=== PATIENT | female | born 1955 | race Caucasian/White ===

== ENCOUNTER 2016-09-09 10:24 | Inpatient (IN) | payer OTHER ==
[2016-09-09] MEDS ORDERED: NS 1,000 ML IV ONE (10:46)
--- NOTE | 2016-09-09 11:14 | PROVIDER DOCUMENTATION ---
HPI-Head Injury - General Chief Complaint: Fall Stated Complaint: nausea, fall w/head injury Time Seen by Provider: 09/09/16 11:06 Source: patient, family Allergies/Adverse Reactions: Patient Allergies Allergy/AdvReac Type Severity Reaction Status Date / Time No Known Allergies Allergy Verified 09/09/16 10:55 Home Medications: Home Medication List Medication Instructions Recorded Confirmed Last Taken Type Pantoprazole [Protonix] 40 mg PO DAILY 06/29/14 09/09/16 09/08/16 History Hydralazine [Apresoline] 100 mg PO Q8H #90 tablet 09/11/15 09/09/16 09/08/16 Rx Amlodipine [Norvasc] 10 mg PO DAILY #30 tablet 12/23/15 09/09/16 09/08/16 Rx Escitalopram [Lexapro] 20 mg PO QHS #30 tablet 08/28/16 09/09/16 09/08/16 Rx Fluticasone/Salmet 250/50 INH 1 puff INH RTBID #1 inhaler 08/28/16 09/09/16 Unknown Rx [Advair 250/50 Diskus] Amlodipine [Norvasc] 5 mg PO DAILY 09/09/16 09/09/16 09/08/16 History Bisacodyl [Laxative] 5 mg PO PRN PRN 09/09/16 09/09/16 Unknown History Cyanocobalamin (Vitamin B-12) 1,000 mcg PO DAILY 09/09/16 09/09/16 09/08/16 History [Vitamin B-12] Diphenhydramine HCl 25 mg PO PRN PRN 09/09/16 09/09/16 Unknown History Furosemide 10 mg PO PRN PRN 09/09/16 09/09/16 Unknown History Furosemide 20 mg PO DAILY 09/09/16 09/09/16 09/08/16 History Magnesium 250 mg PO DAILY 09/09/16 09/09/16 09/08/16 History Potassium Chloride 20 meq PO BID 09/09/16 09/09/16 09/08/16 History - History of Present Illness-Head Injury Nature of Presenting Problem: Patient is a 61 y/o F that presents to the ER after having a fall 2 days ago. Patient denies loc, reports tripping. Patient since has been acting differently. She also has had n/v. denies any neck and back pain. Head Injury Location: reports: frontal, temporal (right) Other injuries associated with incident:: reports: none Severity: reports: mild, moderate Onset/Duration: reports: abrupt, 2 days ago Timing: reports: still present, constant Method of Injury: reports: direct blow, fell Any recent trauma/injury?: reports: none Loss of Consciousness: no loss of consciousness Modifying Factors: improves with: nothing Injury Associated Symptoms: reports: headaches, nausea, vomiting, weakness. denies: back/neck pain, chest pain, dizziness, shortness of breath, unable to bear weight, trouble walking Locality of Occurance: Home Similar Symptoms Previously?: No Recently seen or treated by another doctor?: No Review of Systems - Adult - REVIEW OF SYSTEMS - ADULT Constitutional: denies: chills, fever Eyes: denies: decreased vision, blurred vision, double vision Ears, Nose, Mouth & Throat: reports: no symptoms reported Cardiovascular: reports: no symptoms reported Respiratory: reports: no symptoms reported Gastrointestinal: reports: nausea, vomiting. denies: abdominal pain, diarrhea Genitourinary: reports: no symptoms reported Musculoskeletal: denies: bone pain, back pain, neck pain Integumentary: reports: no symptoms reported Neurological: reports: headache/migraines. denies: dizziness/vertigo, seizure, syncope Psychiatric: reports: no symptoms reported Endocrine: reports: no symptoms reported Hematologic/Lymphatic: reports: no symptoms reported Allergic/Immunologic: reports: no symptoms reported All Other Systems: Reviewed and Negative Past History - Adult - PAST MEDICAL HISTORY-ADULT Review of Records: reports: Old Records Reviewed, Nursing Assessment Review, Medications Reviewed Cardiovascular: reports: HTN, hyperlipidemia Respiratory: reports: COPD, pneumonia Gastrointestinal: reports: GERD, hepatitis (Hep C) Obstetrical/Gynecological: reports: other (cervical cancer) Genitourinary: reports: retention (fluid retention) Psychiatric: reports: anxiety, depression - PRIOR SURGERIES/PROCEDURES Surgical/Procedure History: reports: hysterectomy - IMMUNIZATION STATUS Childhood Immunizations: See Nurse Assessment Flu Vaccine: See Nurse Assessment - FAMILY HISTORY Family History: reviewed, not pertinent - SOCIAL HISTORY Smoking: cigarettes, less than 1 pack/day Living Situation: family Physical Exam- Neurological - Physical Exam-Neuro Initial Vital Signs Reviewed: Yes General Appearance: alert, no apparent distress Eye Exam: bilateral eye: normal inspection, PERRL HENMT: moist mucous membranes, normal ENT inspection Neck: full range of motion, normal inspection. negative: lymphadenopathy Respiratory: lungs clear, normal breath sounds, no respiratory distress, no accessory muscle use Cardiovascular: no murmur, bradycardia Abdominal Exam: normal bowel sounds, non tender, soft, no organomegaly, no pulsatile mass Extremity: normal capillary refill, pelvis stable, pedal edema (2 plus pitting bilaterally) property custodian Exam: normal hearing, normal speech, PERRL Motor/Sensory: no motor deficit, no sensory deficit Neurologic: property custodian II-XII nml as tested, no motor/sensory deficits Integumentary: normal turgor, warm/dry, ecchymosis (right temporal) Psych/Mental Status: normal mood/affect, normal thought content, normal thought process, oriented x 3 Progress - PLAN OF CARE/RESULTS Progress/Plan/Lab Results: plan of care-labs, ct head, cxr 1228- Er will be contacted after. Milton Kim spoke with Samuel at [facility] due to patient's heart rate went down to 21 bpm 1231- (Er physician at ) reports that the ER has 13 patients awaiting beds. cardiology at [facility] will be contacted. Vital Signs Temp Pulse Resp BP Pulse Ox 09/09/16 12:16 37 L 20 149/110 94 L 09/09/16 10:44 98.0 F 47 L 20 188/71 94 L No Known Allergies Allergy (Verified 09/09/16 10:55) Pantoprazole [Protonix] 40 mg PO DAILY 06/29/14 Hydralazine [Apresoline] 100 mg PO Q8H #90 tablet 09/11/15 Amlodipine [Norvasc] 10 mg PO DAILY #30 tablet 12/23/15 Escitalopram [Lexapro] 20 mg PO QHS #30 tablet 08/28/16 Fluticasone/Salmet 250/50 INH [Advair 250/50 Diskus] 1 puff INH RTBID #1 inhaler 08/28/16 Amlodipine [Norvasc] 5 mg PO DAILY 09/09/16 Bisacodyl [Laxative] 5 mg PO PRN PRN 09/09/16 Cyanocobalamin (Vitamin B-12) [Vitamin B-12] 1,000 mcg PO DAILY 09/09/16 Diphenhydramine HCl 25 mg PO PRN PRN 09/09/16 Furosemide 10 mg PO PRN PRN 09/09/16 Furosemide 20 mg PO DAILY 09/09/16 Magnesium 250 mg PO DAILY 09/09/16 Potassium Chloride 20 meq PO BID 09/09/16 I&O 09/08/16 09/09/16 09/10/16 06:59 06:59 06:59 Output Total 30 Balance -30 Laboratory 09/09/16 09/09/16 09/09/16 11:55 11:55 11:01 WBC RBC Hgb Hct MCV MCH MCHC RDW Std Deviation Plt Count MPV Immature Gran % (Auto) Neut % (Auto) Lymph % (Auto) Delta % (Auto) Eos % (Auto) Baso % (Auto) Immature Gran # (Auto) Neut # (Auto) Lymph # (Auto) Delta # (Auto) Eos # (Auto) Baso # (Auto) PT INR PTT (Actin FS) Sodium 143 Potassium 4.1 Chloride 104 Carbon Dioxide 27 Anion Gap 12 BUN 12 Creatinine 1.2 H Estimated GFR/1.73 m2 46 BUN/Creatinine Ratio 10 Glucose 96 Calculated Osmolality 285 Calcium 9.1 Total Bilirubin 0.32 AST 25 ALT 17 Alkaline Phosphatase 122 H Creatine Kinase Troponin T [id number]-[id number] Pept Total Protein 7.8 Albumin 3.9 Globulin 3.9 Albumin/Globulin Ratio 1.0 Urine Source CATH Urine Color STRAW Urine Turbidity CLEAR Urine pH 8.0 Ur Specific Troutman 1.007 Urine Protein NEGATIVE Ur Glucose (Stick) NEGATIVE Ur Ketones (Stick) NEGATIVE Urine Blood NEGATIVE Urine Nitrite NEGATIVE Urine Bilirubin NEGATIVE Urobilinogen Dipstick NORMAL Urine Leukocytes NEGATIVE Urine WBC (Auto) <10 Urine RBC (Auto) <10 U Epithel Cells (Auto) <10 Urine Bacteria (Auto) NEGATIVE Urine Opiates Screen NONE DETECTED Ur Oxycodone Screen NONE DETECTED Ur Methadone, Qual NONE DETECTED Ur Barbiturates Screen NONE DETECTED Ur Phencyclidine Scrn NONE DETECTED Ur Amphetamines Screen NONE DETECTED U Benzodiazepines Scrn NONE DETECTED Urine Cocaine Screen NONE DETECTED U Cannabinoids Screen NONE DETECTED 09/09/16 09/09/16 09/09/16 11:01 11:01 11:01 WBC 8.97 RBC 4.46 Hgb 13.3 Hct 41.4 MCV 92.8 MCH 29.8 MCHC 32.1 L RDW Std Deviation 15.5 H Plt Count 310 MPV 9.6 Immature Gran % (Auto) 0.2 Neut % (Auto) 80.9 H Lymph % (Auto) 13.5 L Delta % (Auto) 3.9 Eos % (Auto) 1.3 Baso % (Auto) 0.2 Immature Gran # (Auto) 0.02 Neut # (Auto) 7.25 H Lymph # (Auto) 1.21 Delta # (Auto) 0.35 Eos # (Auto) 0.12 Baso # (Auto) 0.02 PT 10.1 INR 0.95 PTT (Actin FS) 29.4 Sodium Potassium Chloride Carbon Dioxide Anion Gap BUN Creatinine Estimated GFR/1.73 m2 BUN/Creatinine Ratio Glucose Calculated Osmolality Calcium Total Bilirubin AST ALT Alkaline Phosphatase Creatine Kinase Troponin T Wvt-[id number]-Ovdofhefdft Pept 2599 H Total Protein Albumin Globulin Albumin/Globulin Ratio Urine Source Urine Color Urine Turbidity Urine pH Ur Specific Troutman Urine Protein Ur Glucose (Stick) Ur Ketones (Stick) Urine Blood Urine Nitrite Urine Bilirubin Urobilinogen Dipstick Urine Leukocytes Urine WBC (Auto) Urine RBC (Auto) U Epithel Cells (Auto) Urine Bacteria (Auto) Urine Opiates Screen Ur Oxycodone Screen Ur Methadone, Qual Ur Barbiturates Screen Ur Phencyclidine Scrn Ur Amphetamines Screen U Benzodiazepines Scrn Urine Cocaine Screen U Cannabinoids Screen 09/09/16 09/09/16 11:01 11:01 WBC RBC Hgb Hct MCV MCH MCHC RDW Std Deviation Plt Count MPV Immature Gran % (Auto) Neut % (Auto) Lymph % (Auto) Delta % (Auto) Eos % (Auto) Baso % (Auto) Immature Gran # (Auto) Neut # (Auto) Lymph # (Auto) Delta # (Auto) Eos # (Auto) Baso # (Auto) PT INR PTT (Actin FS) Sodium Potassium Chloride Carbon Dioxide Anion Gap BUN Creatinine Estimated GFR/1.73 m2 BUN/Creatinine Ratio Glucose Calculated Osmolality Calcium Total Bilirubin AST ALT Alkaline Phosphatase Creatine Kinase 93 Troponin T < 0.010 Pjh-T-Dcqtwdxcgaj Pept Total Protein Albumin Globulin Albumin/Globulin Ratio Urine Source Urine Color Urine Turbidity Urine pH Ur Specific Troutman Urine Protein Ur Glucose (Stick) Ur Ketones (Stick) Urine Blood Urine Nitrite Urine Bilirubin Urobilinogen Dipstick Urine Leukocytes Urine WBC (Auto) Urine RBC (Auto) U Epithel Cells (Auto) Urine Bacteria (Auto) Urine Opiates Screen Ur Oxycodone Screen Ur Methadone, Qual Ur Barbiturates Screen Ur Phencyclidine Scrn Ur Amphetamines Screen U Benzodiazepines Scrn Urine Cocaine Screen U Cannabinoids Screen Orders Category Date Time Status Saline Loc NOW Care 09/09/16 10:44 Active CHEST-1 VIEW [RAD] Stat Exams 09/09/16 10:46 Completed HEAD W/O CONTRAST [CT] Stat Exams 09/09/16 10:44 Draft CBC WITH ELECTRONIC DIFF [HEME] Stat Lab 09/09/16 11:01 Completed CK PROFILE [SP CHEM] Stat Lab 09/09/16 11:01 Completed COMPREHENSIVE METABOLIC PANEL [CHEM] Stat Lab 09/09/16 11:01 Completed PRO B-NATRIURETIC PEPTIDE Stat Lab 09/09/16 11:01 Completed PROTIME WITH INR [COAG] Stat Lab 09/09/16 11:01 Completed PTT [COAG] Stat Lab 09/09/16 11:01 Completed TROPONIN T Stat Lab 09/09/16 11:01 Completed URINALYSIS W/POSS RFLX CULT [URINALYSIS] Stat Lab 09/09/16 11:55 Completed URINE DRUG SCREEN Stat Lab 09/09/16 11:55 Completed 0.9% Sodium Chloride Inj [Ns] 1,000 ml Med 09/09/16 10:46 Discontinued IV 999 mls/hr EKG [EKG] Stat Ther 09/09/16 10:40 Draft - EKG 1 Time of EKG reading by physician:: 10:44 EKG Read and Signed by:: Mahsa Javier EKG Interpretation (*Must complete 3 of following elements*): Abnormal Rate: 48 Rhythm: SInus bradycardia Doyle: normal QRS: normal ST Wave: normal - XRAY 1 XRAY Study: Chest Impression: Normal XRAY Interpretation: nad - CT/MRI 1 CT Study: Head Impression: Abnormal CT Results: chronic microvascular changes - CONSULTS/PCP/HOSPITALIST Notification #1 *Consult/PCP/Hospitalist*: (Teresa) Time Discussed: 12:36 Consult Disposition: other (will consult on patient, admit to hospitalist or pcp ) #2 Consult: Time Discussed: 12:50 Consult Disposition: Will see in ED, Admit Departure - Departure Time of Disposition Order: 12:50 DIAGNOSIS: Bradycardia with less than 30 beats per minute Fall Qualifiers: Encounter type: initial encounter Qualified Code(s): W19.XXXA - Unspecified fall, initial encounter Head injury Qualifiers: Encounter type: initial encounter Qualified Code(s): S09.90XA - Unspecified injury of head, initial encounter Disposition: ADMITTED INPATIENT 09 Certified Medical Emergency: Emergent Condition: Stable Referrals: Jayy Salcido [Primary Care Provider] - Attestation - Scribe Verification/Attestation Scribe:: Daniel Swanson Acting as Scribe for:: Milton Kim Scribe documention review:: This chart was documented by a scribe and accurately reflects the service the provider performed and the decisions made by the provider. - Physician/ ERIKA Attestation Patient care was provided by Advanced Practice Provider:: Yes Advanced Practice Provider:: Milton Kim Advanced Practice Provider documentation review:: The Mid-level provider documentation, treatment plan and medical decision making was reviewed by the physician who agrees with all treatment and medical decision making by the [facility]. Physician Attestation - Physician Attestation I, the provider, attest to the following statement:: Milton Kim Physician documentation Attestation:: This documentation recorded by the scribe accurately reflects the service I personally performed and the decisions made by me.
[2016-09-09 11:15] LABS: MANUAL DIFF NEEDED? NO
[2016-09-09 11:21] LABS: BASO% 0.2 % (0.0-0.8); EOS# 0.12 X1000 (0.0-0.7); EOS% 1.3 % (0.0-10.0); HEMATOCRIT 41.4 % (37.0-47.0); HEMOGLOBIN 13.3 g/dL (12.0-16.0); IMM GRAN# 0.02 X1000 (0.0-0.04); IMM GRAN% 0.2 % (0.0-0.5); LYMPH# 1.21 X1000 (1.2-3.4); LYMPH% 13.5 % (20.5-51.1); MCH 29.8 PG (27-31); MCHC 32.1 g/dL (33-37); MCV 92.8 FL (81-99); MONO# 0.35 X1000 (0.11-0.59); MONO% 3.9 % (1.7-9.3); MPV 9.6 FL (7.4-10.4); NEUT% 80.9 % (42.2-75.2); PLT 310 X1000 (130-400); RBC 4.46 XMIL (4.2-5.4)
--- NOTE | 2016-09-09 11:41 | Diag Imaging Result Document ---
PROCEDURE NAME: CHEST-1 VIEW - 09/09/2016 AP CHEST: FINDINGS: There is somewhat suboptimal inspiration. Compared to 08/26/2016, there has been no significant change considering differences in technique and inspiration. IMPRESSION: No acute disease.
--- NOTE | 2016-09-09 11:51 | Diag Imaging Result Document ---
PROCEDURE NAME: HEAD W/O CONTRAST - 09/09/2016 CT OF THE HEAD WITHOUT CONTRAST: FINDINGS: There are calcifications present in both internal carotid arteries. There is no evidence of mass effect, bleed, or abnormal extra-axial fluid collection. The visualized paranasal sinuses are clear. The calvarium is stable in appearance. There are some patchy lucencies present in the white matter of both hemispheres consistent with chronic microvascular disease. This was also demonstrated on the previous study. In fact, it was more obvious on the previous study of 02/29/2016. Given the resolution of some of the abnormalities which were present on the previous study, it was very likely they were due to reversible encephalopathy. IMPRESSION: Minimal chronic microvascular white matter changes. No evidence of acute disease.
[2016-09-09 11:59] LABS: ALBUMIN 3.9 g/dL (3.5-5.0); CALCIUM 9.1 mg/dL (8.8-10.2); POTASSIUM 4.1 mmol/L (3.5-5.1); TOTAL BILIRUBIN 0.32 mg/dL (0.20-1.00); TOTAL PROTEIN 7.8 g/dL (6.3-8.3)
[2016-09-09 12:03] LABS: INR 0.95; PROTIME 10.1 Seconds (9.2-11.7); PTT 29.4 Seconds (22.0-36.0)
[2016-09-09 12:05] LABS: URINE CULTURE NEEDED? NO; URINE MICRO REVIEW NEEDED? NO; URINE SOURCE CATH
[2016-09-09 12:10] LABS: BILIRUBIN URINE NEGATIVE (NEGATIVE); BLOOD URINE NEGATIVE (NEGATIVE); COLOR STRAW; GLUCOSE URINE NEGATIVE (NEGATIVE); LEUKOCYTES URINE NEGATIVE (NEGATIVE); NITRITE URINE NEGATIVE (NEGATIVE); PROTEIN URINE NEGATIVE (NEGATIVE); SP GRAVITY URINE 1.007; TURBIDITY URINE CLEAR (CLEAR); UR EPITHELIAL CELLS <10 /HPF (<10); URINE BACTERIA NEGATIVE /HPF; URINE RBC <10 /HPF (<10); URINE WBC <10 /HPF (<10); UROBILINOGEN URINE NORMAL (NORMAL)
--- NOTE | 2016-09-09 12:31 | EKG Report ---
Test Performed on : 09/09/2016 10:44:53 AM Test Reason : cp/sob Blood Pressure : / mmHG Vent. Rate : 048 BPM Atrial Rate : 048 BPM P-R Int : 128 ms QRS Dur : 086 ms QT Int : 546 ms P-R-T Axes : 054 055 044 degrees QTc Int : 487 ms Sinus bradycardia. Otherwise normal ECG When compared with ECG of 25-AUG-2016 07:18, No significant change was found Unconfirmed Result
[2016-09-09 12:34] LABS: UR AMPHETAMINES QUAL NONE DETECTED (NONE DETECT); UR BARBITUATES QUAL NONE DETECTED (NONE DETECT); UR BENZODIAZEPIN QUAL NONE DETECTED (NONE DETECT); UR CANNABINOIDS QUAL NONE DETECTED (NONE DETECT); UR COCAINE QUAL NONE DETECTED (NONE DETECT); UR METHADONE QUAL NONE DETECTED (NONE DETECT); UR OPIATES QUAL NONE DETECTED (NONE DETECT); UR OXYCODONE QUAL NONE DETECTED (NONE DETECT); UR PCP QUAL NONE DETECTED (NONE DETECT)
[2016-09-09] MEDS ORDERED: BENADRYL PO PRN (13:06)
--- NOTE | 2016-09-09 13:45 | CONSULTATION ---
DATE OF CONSULTATION: 09/09/2016 REASON FOR CONSULTATION: Cardiology was consulted for bradycardia. HISTORY OF PRESENT ILLNESS: The patient was at home having significant nausea and dry heaving and she did not look well to her family and they brought her to the emergency room. She says she did not actually throw up. She denies any chest pain. She denies any syncopal episode. As far as dry heaving is concerned, that started today. It is not associated with any diarrhea or loose stools. She was noted to have bradycardia with sinus bradycardia noted on the telemetry strips with a pause of 3 seconds on 1 episode and heart rate varying anywhere from 55-60, sinus bradycardia. During her last hospitalization she was noted to have accelerated hypertension and bradycardia. At that time she was on beta-blockers which had been discontinued but at home she has not been taking any beta blockers. Her blood pressures are elevated for which she takes amlodipine and hydralazine. A couple of days back she fell at home at night. She says she did not lose consciousness. She fell off the toilet seat. She has not had any dhaval syncopal episode. She has had seizure disorder in the past. She was recently admitted on 08/25/2016 and discharged with COPD exacerbation. At that time was also noted to have renal insufficiency and hypercapnic respiratory failure. REVIEW OF SYSTEMS: A 14-point review of system was done. GI System: As above. System: There is no dysuria or hematuria. Respiratory System: There is no history of cough, expectoration, hemoptysis. There is no history of fevers or chills. Cardiovascular System: Patient does not perceive any palpitations. She denies chest pain. PAST MEDICAL HISTORY: 1. Hypertension, accelerated hypertension in the past. 2. COPD. 3. Anemia. 4. Renal insufficiency. 5. Recent admission with hypercapnic respiratory failure. 6. History of chronic pain. 7. Diverticulosis. 8. Chronic kidney disease. 9. Depression. 10. Cervical cancer. 11. Peripheral neuropathy. 12. Hepatitis C is positive. HOME MEDICATIONS: Include: 1. Protonix 40 mg a day. 2. Hydralazine 100 mg 3 times a day. 3. Amlodipine 10. 4. Lexapro 20. 5. Magnesium 250. 6. Lasix 20 p.r.n. 7. Potassium supplements. 8. Cyanocobalamin. 9. Diphenhydramine p.r.n. ALLERGIES: She is not known to be allergic to any medication. SOCIAL HISTORY: There is no history of alcohol abuse. PHYSICAL EXAMINATION: Vital Signs: Blood pressure was 188/71. Cardiovascular System: Normal jugular venous pressure. First and second heart sounds were heard. There was no S3 gallop. There was a faint systolic murmur. Respiratory System: Normal air entry. There are no crepitations or rhonchi. Abdomen: Soft, nontender. There was no guarding or rigidity. Bowel sounds were heard. Central nervous system: Alert. Answering all questions appropriately. Moving all 4 extremities. HEENT: Atraumatic, normocephalic. Pupils were equal and reacting to light. LABORATORY EXAMINATION: Revealed sodium 143, potassium 4.1, BUN 12, creatinine 1.2. CK was normal. CK-MB was 0.010. ProBNP 2,599. WBC 8.97, hemoglobin 13, hematocrit 41, platelet count of 310,000. Toxicology was negative. Urine tox screen was negative. Head CT with minimal microvascular changes. No evidence of acute disease. Chest x-ray: No acute disease. Electrocardiogram revealed sinus bradycardia, heart rate of 48 beats per minute. ASSESSMENT AND PLAN: Ms. Angelina Bolaños is a 61-year-old lady who has a history of chronic obstructive pulmonary disease, renal insufficiency in the past, hypertension, seizure disorder, hepatitis C positive, is admitted as she has had dry heaves and she did not a low well and was brought to the emergency room. She denies any chest pain. There is no dhaval syncopal episode. She was noted to be having bradycardia, as mentioned above. Currently blood pressure is elevated. RECOMMENDATIONS: 1. As far as the bradycardia is concerned, it could be vagal related because of dry heaves. However, we will monitor her to make sure she does not have any significant bradyarrhythmias. 2. Accelerated hypertension. She says that she has been taking her medications at home regularly. She did not take her medicines today. Will give her home medications of hydralazine 100 mg q.8 and Norvasc 10 mg a day. 3. We will get an echocardiogram to assess cardiac and valvular function. 4. As far as electrolytes are concern, recent thyroid profile was normal. Creatinine and BUN were abnormal during the last hospitalization last year but it is stable at the current time. 5. She has chronic pain syndrome from back pain. She says she has been with a pain clinic in [place] and takes methadone at the present time. 6. For COPD, continue with her inhalers. Thanks for the consult. We will follow hospital course.
[2016-09-09 14:26] LABS: ALLEN TEST YES; BE 2.3 mmoll (-3.0-3.0); BLOOD TYPE ARTERIAL; DRAW SITE R RADIAL; METHB 1.2 % (0.0-1.5); O2(CT) 14.6 mL/dL (15.0-23.0); PCO2(98.6) 43 mmHg (35-45); PO2(98.6) 73 mmHg (60-100); SAMPLE BLOOD; SAO2 97.1 % (95.0-100.0); THB 11.4 g/dL (11.5-17.4); pH(98.6) 7.41 (7.35-7.45)
[2016-09-09 14:27] LABS: MODALITY CANNULA
[2016-09-09] MEDS ORDERED: NORVASC ONE (14:31)
[2016-09-09] MEDS ORDERED: APRESOLINE ONE (14:31)
[2016-09-09] MEDS: NORVASC PO SCH (14:37)
[2016-09-09] MEDS ORDERED: DUONEB (A & A) INH PRN (15:22)
[2016-09-09] MEDS: KLOR-CON PO SCH ×2 (15:34→20:32)
[2016-09-09] MEDS ORDERED: PROTONIX IV SCH (16:00)
[2016-09-09] MEDS ORDERED: SODIUM CHLORIDE 0.9% INJ SCH (16:00)
[2016-09-09] MEDS: APRESOLINE PO SCH ×2 (16:57→20:35)
[2016-09-09] MEDS: PROTONIX PO SCH (16:57)
[2016-09-09] MEDS: DUONEB (A & A) INH SCH ×3 (16:59→23:19)
[2016-09-09] MEDS: ADVAIR 250/50 DISKUS INH SCH ×2 (17:00→23:19)
[2016-09-09 17:02] LABS: URINE CULTURE NEEDED? NO; URINE MICRO REVIEW NEEDED? NO; URINE SOURCE CATH
[2016-09-09 17:07] LABS: BILIRUBIN URINE NEGATIVE (NEGATIVE); BLOOD URINE NEGATIVE (NEGATIVE); COLOR STRAW; GLUCOSE URINE NEGATIVE (NEGATIVE); LEUKOCYTES URINE NEGATIVE (NEGATIVE); NITRITE URINE NEGATIVE (NEGATIVE); PROTEIN URINE NEGATIVE (NEGATIVE); SP GRAVITY URINE 1.007; TURBIDITY URINE CLEAR (CLEAR); UR EPITHELIAL CELLS <10 /HPF (<10); URINE BACTERIA NEGATIVE /HPF; URINE RBC <10 /HPF (<10); URINE WBC <10 /HPF (<10); UROBILINOGEN URINE NORMAL (NORMAL)
[2016-09-09] MEDS: MAG-OX PO SCH (17:58)
[2016-09-09] MEDS: VITAMIN B-12 PO SCH (17:58)
--- NOTE | 2016-09-09 18:05 | HISTORY AND PHYSICAL ---
CHIEF COMPLAINT: Altered mental status, abdominal pain and dry heaving. HISTORY OF PRESENT ILLNESS: Mrs. Bolaños is a 61-year-old, female, well known to our service. She was actually recently discharged on 08/28/2016. At that time she was diagnosed with COPD exacerbation. She also carries a history of hepatitis C, hypertension which has been fairly uncontrolled in the past, uterine cancer in remission, hypertensive encephalopathy resulting in seizures last year, nicotine dependence, opioid dependence on methadone maintenance, chronic left lower extremity edema, chronic iron deficiency anemia, malignant hypertension, chronic opioid dependence, on methadone maintenance and others, who presents who presents today with abdominal pain, dry heaving and altered mental status. Symptoms began yesterday. She reports pain right under her belly button that is intermittent and dull in nature associated with dry heaving. Her daughter at the bedside reports that she has become more lethargic and has not really become responsive. This morning at about 5:30 they brought her to the ER for further evaluation. She denies any chest pain. She does report shortness of breath but no fevers or chills. Patient is quite lethargic on physical examination. She is able answer some questions but the rest was obtained per her daughter at the bedside. When she got to the ER today her heart rate had been ranging anywhere from 20-120 and there is currently intermittent transcutaneous pacing when her heart rate drops below 40. Her laboratory data is largely unremarkable as is her diagnostic imaging. Cardiology has been consulted and she is going to be going to the ICU now. Her blood pressure and SpO2 are stable at this time. PAST MEDICAL HISTORY: 1. Accelerated hypertension. 2. Chronic COPD, she has home O2 but does not use it. 3. Anemia, chronic. 4. 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 5. Chronic pain on methadone maintenance. 6. Diverticulosis. 7. Depression. 8. History of cervical cancer in remission. 9. Hepatitis C. PAST SURGICAL HISTORY: Hysterectomy, tonsillectomy, goiter, cholecystectomy. SOCIAL HISTORY: Patient continues to smoke a pack a day. There is no alcohol or illicit drug use. Currently she lives alone but there is a complex psychosocial element as stated by the daughter. FAMILY HISTORY: Significant for CAD and diabetes. ALLERGIES: No known drug allergies. HOME MEDICATIONS: Norvasc 5 mg daily, Bisacodyl 5 mg as needed, vitamin B12 1000 mcg daily, diphenhydramine 25 mg as needed, Lasix 10 mg as needed, magnesium 250 mg p.o. daily, Protonix 40 mg daily, KCl 20 mEq p.o. b.i.d., Lexapro 20 mg at bedtime, Advair 250/50 twice a day, Apresoline 100 mg every 8 hours. REVIEW OF SYSTEMS: Fourteen-point review of systems obtained by me and negative with the exception of the HPI. PHYSICAL EXAMINATION: VITAL SIGNS: Blood pressure is 149/110, heart rate 37, respiratory rate 20, O2 saturations 94% on room air, temperature is 98 degrees. GENERAL: This is a chronically ill-appearing, 61-year-old, female, lying in hospital bed, in no acute distress. NEUROLOGIC: She is lethargic but opens her eyes to verbal stimulus. She follows commands without focal deficits. HEENT: Head atraumatic and normocephalic. Her pupils are equal, round, reactive to light. Oral mucosa is a bit dry. Trachea is midline. Chest diminished at the bases but clear to auscultation bilaterally. CARDIOVASCULAR: Bradycardic rate irregular. S1, S2 is noted. No murmurs. GASTROINTESTINAL: Soft, nondistended, nontender. Bowel sounds positive. EXTREMITIES: Without edema, clubbing or cyanosis. Pulses are diminished but palpable bilaterally. DIAGNOSTIC DATA: 1. Head CT shows minimal chronic microvascular white matter changes with no evidence of acute disease. 2. Chest x-ray shows no acute disease. 3. EKG shows sinus bradycardia without blocks or ST-T wave abnormalities, telemetry strips have caused multiple episodes of significant bradycardia down into the 30s and even the 20s. At times her heart rate would go up to 120 while we were at the bedside. LAB DATA: Sodium 143, potassium 4.1, chloride 104, CO2 27, anion gap 12, BUN 12, creatinine 1.2, glucose 96, calcium 9.1, AST 25, ALT 17, alkaline phosphatase 122, proBNP 259, protein 7.8, albumin 3.9, INR 0.95, WBC 8.97, hemoglobin 13.3, hematocrit 31.4, platelet count 310,000. Toxicology is negative. Urinalysis is negative. ASSESSMENT AND PLAN: 1. Symptomatic bradycardia: Patient has transcutaneous pacers and she will be going to the ICU for evaluation. Cardiology has been consulted. We will monitor her telemetry and hemodynamics closely. Obviously we will avoid any AV lana blocking agents. Cardiology has ordered an echocardiogram and we will of course rule out myocardial infarction with cardiac enzymes. A thyroid function was recently checked and was normal. We are going to check an ABG to check her true acid-base balance and make sure she is not hypercapnic. 2. Toxic metabolic encephalopathy: Likely multifactorial. Her drug screen is negative. Head CT does not show anything acute. We are also going to check an ammonia level given her history of hepatitis. There is no urinary tract infection or other obvious nidus of infection. This is likely a combination of her methadone on top of kidney disease, liver disease and possibly her bradycardia. We will however monitor her neurologic status closely. 3. Hypertension: Medications per Cardiology. 4. Chronic kidney disease stage 2-3: Chronic and stable, avoid nephrotoxic medications, monitor creatinine daily. 5. Hepatitis C: We are aware. We will monitor. We are checking an ammonia level. 6. Chronic pain on methadone maintenance: Given her mental status we are going to hold her methadone and try and check quantitative methadone level. 7. Chronic obstructive pulmonary disease: Currently not in exacerbation. Continue oxygen as needed and aggressive pulmonary toilet. 8. Nicotine dependence: Patient has been advised to quit smoking, nicotine patch has been prescribed. 9. Gastrointestinal prophylaxis with IV Protonix. Deep vein thrombosis prophylaxis with SCDs and TEDs. Further recommendations to follow. Dictated by ALFA Arias for Christina Dickson MD
--- NOTE | 2016-09-09 18:12 | ECHO REPORT ---
ORDER DATE: 09/09/2016 INTERPRETING PHYSICIAN: Dr. Anderson REQUESTING PHYSICIAN: CLINICAL INDICATIONS: A 61-year-old female with dyspnea, bradycardia. M-MODE MEASUREMENTS: Right ventricle: 2.7 cm. Left ventricle end diastole: 5.8 cm. Left ventricle end systole: 3.7 cm. Posterior wall: 0.8 cm. Interventricular septum: 0.8 cm. Left atrium: 4.5 cm. Aortic root: 3.9 cm. Inferior vena cava: 3.5. SUMMARY OF 2-DIMENSIONAL IMAGING: The left ventricle shows normal contractility. Ejection fraction 67%. The chamber is moderately dilated. The left atrium is also significantly enlarged. The inferior vena cava is dilated. The tricuspid valve shows a [id number] degree of regurgitation. The pulmonary systolic pressure is estimated at 61 mmHg. The pulmonic valve shows a mild degree of regurgitation. The pulmonary diastolic pressure is estimated at 36 mmHg. The mitral valve shows a mild degree of regurgitation. Pulse wave Doppler of mitral inflow shows a tall E wave, a "M" wave, and an A wave. This probably suggests elevation of left atrial pressure. Tissue Doppler of septal and lateral mitral annulus averages 10 cm per second. The pulse wave Doppler of pulmonary venous flow appears to be normal. Even though the tissue Doppler of mitral annulus shows good velocities, I suspect that this patient has elevation of left atrial pressure. The aortic valve looks normal. Color flow mapping unremarkable. There is no pericardial effusion, masses or thrombus. IMPRESSION: In summary, this study shows: 1. Normal left ventricular systolic function. Patient was bradycardic during the study with a rate of 40-44 beats per minute. 2. The left ventricular chamber is moderately to significantly enlarged. 3. The left atrium is significantly enlarged. 4. Enlargement of the inferior vena cava. 5. Pulmonary pressure is estimated at 61/36 mmHg, indicating moderate pulmonary hypertension. 6. Suspect elevation of left atrial pressure based on the presence of "M" wave on the mitral inflow. 7. Unremarkable aortic valve. Clinical correlation recommended.
[2016-09-09] MEDS: LEXAPRO PO SCH (20:31)
[2016-09-09] MEDS: NICODERM PATCH TD PRN (20:32)
[2016-09-09] MEDS: ZOFRAN IV PRN (22:57)
[2016-09-10] MEDS: DUONEB (A & A) INH SCH ×6 (03:34→23:12)
[2016-09-10] MEDS: ZOFRAN IV PRN ×3 (04:52→21:31)
[2016-09-10] MEDS: APRESOLINE PO SCH ×3 (04:58→20:46)
[2016-09-10 05:58] LABS: HEMATOCRIT 35.4 % (37.0-47.0); HEMOGLOBIN 11.2 g/dL (12.0-16.0); MCH 30.2 PG (27-31); MCHC 31.6 g/dL (33-37); MCV 95.4 FL (81-99); MPV 11.1 FL (7.4-10.4); RBC 3.71 XMIL (4.2-5.4)
--- NOTE | 2016-09-10 07:40 | EKG Report ---
Test Performed on : 09/10/2016 06:00:25 AM Test Reason : bradycardia Blood Pressure : / mmHG Vent. Rate : 070 BPM Atrial Rate : 070 BPM P-R Int : 126 ms QRS Dur : 092 ms QT Int : 488 ms P-R-T Axes : 063 056 049 degrees QTc Int : 527 ms Normal sinus rhythm. with sinus arrhythmia. Prolonged QT Abnormal ECG When compared with ECG of 09-SEP-2016 10:44, (Unconfirmed) No significant change was found Confirmed by Abdias WALLIS, Kenny Meza ([id number]) on 09/10/2016 5:23:28 PM
[2016-09-10] MEDS: ADVAIR 250/50 DISKUS INH SCH ×2 (08:00→19:45)
[2016-09-10] MEDS: MAG-OX PO SCH (08:21)
[2016-09-10] MEDS: KLOR-CON PO SCH ×2 (08:21→20:52)
[2016-09-10] MEDS: NORVASC PO SCH (08:21)
[2016-09-10] MEDS: PROTONIX PO SCH (08:22)
[2016-09-10] MEDS: VITAMIN B-12 PO SCH (08:22)
[2016-09-10] MEDS ORDERED: DOBUTAMINE 250 MG/D5W 250 ML ONE (08:57)
[2016-09-10] MEDS ORDERED: NS 500 ML ONE (08:57)
[2016-09-10 09:08] LABS: ALBUMIN 3.1 g/dL (3.5-5.0); CALCIUM 8.8 mg/dL (8.8-10.2); POTASSIUM 4.9 mmol/L (3.5-5.1)
[2016-09-10] MEDS ORDERED: NS 1,000 ML IV SCH (09:15)
--- NOTE | 2016-09-10 11:40 | PROGRESS NOTE ---
DATE: 09/10/2016 SUBJECTIVE: The patient is resting comfortably in bed. No acute events noted overnight. OBJECTIVE: Vital Signs: Temperature 98 degrees, blood pressure 106/51, heart rate 61, respirations 14. O2 saturation is 94% on 2L nasal cannula. General: This is an elderly female lying in bed in no acute distress. Head: Normocephalic, atraumatic. Heart: S1 and S2 normal. Regular rate and rhythm. Lungs: Clear to auscultation bilaterally. No wheezes. No rales. No rhonchi. Abdomen: Positive bowel sounds. Soft, nontender, nondistended. Extremities: No edema. No cyanosis. No calf tenderness. Neurologic: The patient is alert and oriented x3. LABORATORY STUDIES: White blood cell count 8.1, hemoglobin 11, hematocrit 35, platelets 159,000. Sodium 143, potassium 4.9, chloride 105, CO2 of 26, BUN 16, creatinine 1.3, glucose 84, phosphorus 4.6. ASSESSMENT AND PLAN: 1. Symptomatic bradycardia. This appears to have improved. Further management as per the tubing supervisor. 2. Metabolic encephalopathy. The patient is still a little sleepy this morning but is able to answer questions appropriately. 3. Chronic kidney disease, stable. 4. Hypertension, controlled. 5. Chronic obstructive pulmonary disease, stable. Continue with bronchodilator therapy. 6. Situational depression. Continue on Lexapro. 7. Deep vein thrombosis prophylaxis. Will start the patient on Lovenox.
--- NOTE | 2016-09-10 11:56 | Diag Imaging Result Document ---
PROCEDURE NAME: MYOCARDIAL PERF SCAN, STR/REST - 09/10/2016 INDICATION: Bradycardia, hypertension. PROCEDURES PERFORMED: 1. Dobutamine stress. 2. One-day stress/rest myocardial perfusion imaging. PROCEDURE IN DETAIL: Ms. Bolaños was brought to the nuclear laboratory and had a resting study with injection of 12.7 mCi of technetium-99m sestamibi with usual imaging protocol utilized. She subsequently was brought back and had a dobutamine stress. Peak stress was injected with 31.8 mCi of technetium-99m sestamibi with the usual imaging protocol utilized. FINDINGS: Dobutamine stress results: 1. Baseline EKG shows sinus rhythm at 79 beats per minute. 2. No clear evidence of ischemic-related EKG changes occurred during the course of the study. No significant arrhythmias were identified. There did appear to be occasional PACs during the infusion protocol, but again no significant arrhythmias or significant ischemic changes were identified. Perfusion imaging results: 1. No evidence of abnormal extracardiac uptake. 2. The TID ratio is 1.0. 3. There is a tremendous amount of motion artifact which was attempted to be resolved through motion-correction software. However, this still continues to have significant motion. Nevertheless, there does not appear to be any evidence of ischemic-related perfusion imaging changes. There does appear to be normal homogeneous uptake of radiotracer throughout the myocardial segments. Again, no evidence of ischemic changes. 4. Normal ejection fraction of 84%. 5. End-diastolic volume 140, end- systolic volume of 22. Normal wall motion identified.
[2016-09-10] MEDS: LOVENOX SUBQ SCH (14:31)
[2016-09-10] MEDS: NICODERM PATCH TD PRN (20:52)
[2016-09-10] MEDS: LEXAPRO PO SCH (20:52)
[2016-09-11] MEDS: DUONEB (A & A) INH SCH ×6 (02:58→22:40)
[2016-09-11] MEDS: ZOFRAN IV PRN ×3 (04:48→21:58)
[2016-09-11 04:56] LABS: MCH 29.5 PG (27-31); MCHC 30.3 g/dL (33-37); MCV 97.3 FL (81-99); MPV 9.5 FL (7.4-10.4); RBC 3.39 XMIL (4.2-5.4)
[2016-09-11] MEDS: APRESOLINE PO SCH ×3 (05:11→21:51)
[2016-09-11 05:23] LABS: CALCIUM 8.4 mg/dL (8.8-10.2); POTASSIUM 4.8 mmol/L (3.5-5.1)
[2016-09-11] MEDS: ADVAIR 250/50 DISKUS INH SCH ×2 (07:29→19:38)
[2016-09-11] MEDS: MAG-OX PO SCH (08:10)
[2016-09-11] MEDS: PROTONIX PO SCH (08:10)
[2016-09-11] MEDS: VITAMIN B-12 PO SCH (08:10)
[2016-09-11] MEDS: KLOR-CON PO SCH ×2 (08:10→21:50)
[2016-09-11] MEDS: DULCOLAX PO PRN (08:10)
[2016-09-11] MEDS: NORVASC PO SCH (08:10)
[2016-09-11] MEDS: MIRALAX PO SCH ×2 (10:50→21:50)
[2016-09-11] MEDS: METHADONE PO SCH (10:50)
[2016-09-11] MEDS: LOVENOX SUBQ SCH (10:53)
--- NOTE | 2016-09-11 12:55 | Diag Imaging Result Document ---
PROCEDURE NAME: ABDOMEN FLAT/UPRIGHT - 09/11/2016 FLAT AND UPRIGHT RADIOGRAPH OF THE ABDOMEN: COMPARISON: 11/28/2015. FINDINGS: There are nonspecific bowel gas and stool patterns. The colon is mildly distended. There is no specific sign of obstruction. There is no evidence of large-volume free abdominal gas. There is no definite organomegaly. IMPRESSION: Nonspecific mild colonic gaseous distention.
--- NOTE | 2016-09-11 15:22 | PROGRESS NOTE ---
DATE: 09/11/2016 SUBJECTIVE: The patient is resting comfortably. She does complain of generalized pain. The patient is requesting for her methadone to be restarted. OBJECTIVE: Vital Signs: Temperature 99 degrees, blood pressure 140/80, heart rate 94, respirations 18, O2 saturations 96% on 2 L nasal cannula. General: This is an elderly female, lying in bed, in no acute distress. Head: Normocephalic, atraumatic. Heart: S1, S2. Normal. Regular rate and rhythm. Lungs: Clear to auscultation bilaterally. No wheezes, no rales. No rhonchi. Abdomen: Positive bowel sounds. Soft, nontender, nondistended. Extremities: No edema. No cyanosis. No calf tenderness. LABS: White blood cell count 8.6, hemoglobin 10, hematocrit 33, platelets 245,000. Sodium 142, potassium 4.8, chloride 106, CO2 23, BUN 16, creatinine 1.3, glucose 82. ASSESSMENT AND PLAN: 1. Symptomatic bradycardia. Resolved. 2. Metabolic encephalopathy secondary to bradycardia. Resolved. 3. Chronic kidney disease. Stable. 4. Hypertension. Continue on the current antihypertensives. 5. Chronic obstructive pulmonary disease. Stable. Continue with bronchodilator therapy. 6. Chronic pain syndrome. Continue on methadone. 7. Situational depression. Continue on Lexapro. 8. DVT prophylaxis. Continue on Lovenox. 9. We will transfer the patient to the medical floor and consult physical therapy.
[2016-09-11] MEDS: TEARISOL OPH SOLUTION BOTH EYES PRN (17:38)
[2016-09-11] MEDS: LEXAPRO PO SCH (21:51)
[2016-09-12] MEDS: NICODERM PATCH TD PRN (01:09)
[2016-09-12] MEDS: DUONEB (A & A) INH SCH ×5 (02:59→23:40)
[2016-09-12] MEDS: APRESOLINE PO SCH ×3 (05:27→21:16)
[2016-09-12 06:35] LABS: HEMATOCRIT 35.2 % (37.0-47.0); HEMOGLOBIN 10.8 g/dL (12.0-16.0); MCH 29.8 PG (27-31); MCHC 30.7 g/dL (33-37); MCV 97.2 FL (81-99); MPV 9.9 FL (7.4-10.4); RBC 3.62 XMIL (4.2-5.4)
[2016-09-12 06:44] LABS: CALCIUM 9.2 mg/dL (8.8-10.2); POTASSIUM 5.5 mmol/L (3.5-5.1)
[2016-09-12] MEDS: ADVAIR 250/50 DISKUS INH SCH (07:16)
[2016-09-12] MEDS: ZOFRAN IV PRN (07:38)
[2016-09-12] MEDS: MIRALAX PO SCH ×2 (09:21→21:16)
[2016-09-12] MEDS: KLOR-CON PO SCH (09:22)
[2016-09-12] MEDS: MAG-OX PO SCH (09:23)
[2016-09-12] MEDS: METHADONE PO SCH (09:23)
[2016-09-12] MEDS: VITAMIN B-12 PO SCH (09:24)
[2016-09-12] MEDS: NORVASC PO SCH (09:24)
[2016-09-12] MEDS: PROTONIX PO SCH (09:24)
[2016-09-12] MEDS: LOVENOX SUBQ SCH (11:25)
[2016-09-12] MEDS: CILOXAN OPHTH SOLN OPH SCH ×3 (12:56→22:42)
[2016-09-12] MEDS: LACTULOSE PO SCH ×2 (12:56→21:17)
--- NOTE | 2016-09-12 15:06 | PROGRESS NOTE ---
DATE: 09/12/2016 SUBJECTIVE: The patient complains of constipation. She states that she is not hungry and feels nauseous. OBJECTIVE: Vital Signs: Temperature 98 degrees, blood pressure 131/63, heart rate 70, respirations 14, O2 saturation is 95% on 4L nasal cannula. General: This is an elderly female lying in bed in no acute distress. HEENT: Head normocephalic, atraumatic. Heart: S1 and S2 normal. Regular rate and rhythm. Lungs: Clear to auscultation bilaterally. No wheezes. No rales. No rhonchi. Abdomen: Positive bowel sounds. Soft, nontender, nondistended. Extremities: No edema. No cyanosis. No calf tenderness. Neurologic: The patient is alert oriented x3. LABORATORIES: White blood cell count 5.8, hemoglobin 10, hematocrit 35, platelets 216,000. Sodium 141, potassium 5.5, chloride 103, CO2 of 29, BUN 13, creatinine 1.4, glucose 84. ASSESSMENT AND PLAN: 1. Symptomatic bradycardia. Resolved. 2. Hypertension. Controlled. 3. Constipation. We will add Dulcolax. Will also add lactulose. The patient's abdominal x-ray was nonspecific. 4. Chronic obstructive pulmonary disease. Stable. 5. Metabolic encephalopathy. Resolved. 6. Chronic kidney disease. Stable. 7. Situational depression. Continue on Lexapro. 8. Deep vein thrombosis prophylaxis. Continue on Lovenox. 9. The patient is stable for transfer to the floor. 10. Disposition. The patient states that she wants to go to rehabilitation on discharge. [employer] is currently working on placement. Continue with physical therapy.
[2016-09-12] MEDS: DULCOLAX PO PRN (21:16)
[2016-09-12] MEDS: LEXAPRO PO SCH (21:16)
[2016-09-12] MEDS: DULCOLAX PR SCH (21:20)
[2016-09-13] MEDS: DUONEB (A & A) INH SCH ×6 (03:44→23:29)
[2016-09-13] MEDS: CILOXAN OPHTH SOLN OPH SCH ×5 (04:17→17:11)
[2016-09-13] MEDS: APRESOLINE PO SCH ×3 (04:35→21:04)
[2016-09-13 06:33] LABS: MANUAL DIFF NEEDED? NO
[2016-09-13 06:42] LABS: BASO% 0.5 % (0.0-0.8); EOS# 0.26 X1000 (0.0-0.7); EOS% 4.4 % (0.0-10.0); HEMATOCRIT 34.9 % (37.0-47.0); HEMOGLOBIN 10.7 g/dL (12.0-16.0); LYMPH# 1.04 X1000 (1.2-3.4); LYMPH% 17.6 % (20.5-51.1); MCH 29.3 PG (27-31); MCHC 30.7 g/dL (33-37); MCV 95.6 FL (81-99); MONO% 10.1 % (1.7-9.3); MPV 9.8 FL (7.4-10.4); NEUT% 67.4 % (42.2-75.2); PLT 215 X1000 (130-400); RBC 3.65 XMIL (4.2-5.4)
[2016-09-13 06:57] LABS: CALCIUM 8.5 mg/dL (8.8-10.2); POTASSIUM 5.1 mmol/L (3.5-5.1)
[2016-09-13] MEDS ORDERED: KAYEXALATE PO ONE (09:57)
[2016-09-13] MEDS ORDERED: DULCOLAX PR ONE (09:57)
[2016-09-13] MEDS: LACTULOSE PO SCH ×2 (10:03→21:05)
[2016-09-13] MEDS: MAG-OX PO SCH (10:03)
[2016-09-13] MEDS: MIRALAX PO SCH ×2 (10:03→21:06)
[2016-09-13] MEDS: METHADONE PO SCH (10:04)
[2016-09-13] MEDS: PROTONIX PO SCH (10:04)
[2016-09-13] MEDS: NORVASC PO SCH (10:04)
[2016-09-13] MEDS: VITAMIN B-12 PO SCH (10:04)
[2016-09-13] MEDS: ADVAIR 250/50 DISKUS INH SCH ×3 (11:17→23:35)
--- NOTE | 2016-09-13 11:47 | Diag Imaging Result Document ---
PROCEDURE NAME: LUMBAR SPINE W/O CONTRAST - 09/13/2016 CT LUMBAR SPINE WITHOUT: FINDINGS: There is good alignment to the lumbar spine. No compressed vertebra. No other fracture. Small bone spurs are found throughout the lumbar spine. L1-2: Minimal disk bulge. No spinal stenosis. Neither neural foramen is narrowed. L2-3: There is a small disk bulge. Mild spinal stenosis. Neither neural foramen is narrowed. L3-4: There is small disk bulge with bilateral facet hypertrophy. There is mild to moderate spinal stenosis. Neither neural foramen is narrowed. L4-5: There is a vacuum disk. There is a small disk bulge and there is facet hypertrophy. There is mild to moderate spinal stenosis with mild narrowing of the right neural foramen. L5-S1:There is also vacuum disk at L5-S1. Mild to moderate disk bulge. However there is only mild spinal stenosis. There is mild to moderate narrowing of each neural foramen. The gallbladder has been removed. Prominent atherosclerosis. No renal stones. IMPRESSION: 1. The bones are osteopenic and there are mild to moderate degenerative changes. 2. There are multiple small bulging disks resulting in spinal stenosis and neural foraminal narrowing as described.
[2016-09-13] MEDS: NICODERM PATCH TD PRN (12:14)
[2016-09-13] MEDS: LOVENOX SUBQ SCH (12:15)
[2016-09-13] MEDS: TEARISOL OPH SOLUTION BOTH EYES PRN (12:19)
--- NOTE | 2016-09-13 12:45 | PROGRESS NOTE ---
DATE: 09/13/2016 SUBJECTIVE: The patient complains of lower back pain and states that she still has not had a very good bowel movement. OBJECTIVE: Vital Signs: Temperature 98.7 degrees, blood pressure 118/53, heart rate 60, respirations 20, O2 saturation is 94% on 2L nasal cannula. General: This is a elderly female, sitting in bed in no acute distress. Head: Normocephalic, atraumatic. Heart: S1, S2. Normal. Regular rate and rhythm. Lungs: Clear to auscultation bilaterally. No wheezes. No rales. No rhonchi. Abdomen: Positive bowel sounds. Soft, nontender, nondistended. Extremities: No edema. No cyanosis. Neurologic: The patient is alert and oriented x3. LABORATORIES: White blood cell count 5.9, hemoglobin 10, hematocrit 34, platelets 215,000. Sodium 139, potassium 5.1, chloride 99, CO2 of 32, BUN 14, creatinine 1.4, glucose 85. ASSESSMENT AND PLAN: 1. Asymptomatic bradycardia. Resolved. 2. Constipation. Continue on scheduled laxatives. The patient did have 1 small bowel movement yesterday. 3. Chronic obstructive pulmonary disease. Stable. 4. Metabolic encephalopathy. Resolved. 5. Situational depression. Continue on Lexapro. 6. Chronic kidney disease. Stable. DISPOSITION: The patient is stable for transfer to rehabilitation. We are currently waiting on a rehabilitation bed.
[2016-09-13] MEDS: LEXAPRO PO SCH (21:04)
[2016-09-13] MEDS: DULCOLAX PR SCH (21:06)
[2016-09-13] MEDS: ZOFRAN IV PRN (21:13)
[2016-09-14] MEDS: CILOXAN OPHTH SOLN OPH SCH ×5 (00:03→11:48)
[2016-09-14] MEDS: DUONEB (A & A) INH SCH ×6 (03:43→23:25)
[2016-09-14] MEDS: ZOFRAN IV PRN ×3 (03:45→21:11)
[2016-09-14] MEDS: APRESOLINE PO SCH ×3 (05:17→21:11)
[2016-09-14 06:25] LABS: MANUAL DIFF NEEDED? NO
[2016-09-14 06:58] LABS: CALCIUM 9.5 mg/dL (8.8-10.2); POTASSIUM 4.5 mmol/L (3.5-5.1)
[2016-09-14 07:42] LABS: BASO% 0.8 % (0.0-0.8); EOS# 0.28 X1000 (0.0-0.7); EOS% 5.6 % (0.0-10.0); HEMATOCRIT 36.4 % (37.0-47.0); HEMOGLOBIN 11.2 g/dL (12.0-16.0); LYMPH# 1.15 X1000 (1.2-3.4); MCH 29.3 PG (27-31); MCHC 30.8 g/dL (33-37); MCV 95.3 FL (81-99); MONO# 0.58 X1000 (0.11-0.59); MONO% 11.6 % (1.7-9.3); MPV 10.3 FL (7.4-10.4); PLT 224 X1000 (130-400); RBC 3.82 XMIL (4.2-5.4)
[2016-09-14] MEDS: ADVAIR 250/50 DISKUS INH SCH ×2 (08:47→19:47)
[2016-09-14] MEDS: METHADONE PO SCH (10:00)
[2016-09-14] MEDS: PROTONIX PO SCH (10:00)
[2016-09-14] MEDS: MIRALAX PO SCH ×2 (10:00→21:14)
[2016-09-14] MEDS: NORVASC PO SCH (10:00)
[2016-09-14] MEDS: VITAMIN B-12 PO SCH (10:00)
[2016-09-14] MEDS: MAG-OX PO SCH (10:00)
[2016-09-14] MEDS: LOVENOX SUBQ SCH (11:47)
--- NOTE | 2016-09-14 16:01 | PROGRESS NOTE ---
DATE: 09/14/2016 SUBJECTIVE: The patient states that she had a bowel movement last night. She has no other complaints at this time. OBJECTIVE: Vital Signs: Temperature 98 degrees, blood pressure 133/57, heart rate 65, respirations 20, O2 saturations 95% on 2 L nasal cannula. General: This is an elderly female, sitting at the edge of the bed, in no acute distress. Head: Normocephalic atraumatic. Heart: S1, S2. Normal. Regular rate and rhythm. Lungs: Clear to auscultation bilaterally. No wheezes, no rales. No rhonchi. Abdomen: Positive bowel sounds. Soft, nontender, nondistended. Extremities: No edema. No cyanosis. No calf tenderness. Neurologic: The patient is alert and oriented x3. LAB: Reviewed. ASSESSMENT AND PLAN: 1. Symptomatic bradycardia. Resolved. 2. Constipation. Resolved. Continue with scheduled laxative therapy. 3. Chronic obstructive pulmonary disease. Stable. 4. Metabolic encephalopathy. Resolved. 5. Situational depression. Continue on Lexapro. 6. Chronic kidney disease. Stable. 7. Disposition. The patient is stable for discharge to rehab.
[2016-09-14] MEDS: NICODERM PATCH TD PRN (17:34)
[2016-09-14] MEDS: LEXAPRO PO SCH (21:12)
[2016-09-14] MEDS: DULCOLAX PR SCH (21:14)
[2016-09-15] MEDS: ZOFRAN IV PRN ×2 (01:17→22:01)
[2016-09-15] MEDS: DUONEB (A & A) INH SCH ×7 (03:39→23:22)
[2016-09-15] MEDS: APRESOLINE PO SCH ×4 (04:20→22:01)
[2016-09-15] MEDS: ADVAIR 250/50 DISKUS INH SCH ×2 (07:51→19:36)
[2016-09-15 09:58] LABS: ALLEN TEST YES; BE 6.6 mmoll (-3.0-3.0); BLOOD TYPE ARTERIAL; DRAW SITE R RADIAL; METHB 1.4 % (0.0-1.5); O2(CT) 13.9 mL/dL (15.0-23.0); PO2(98.6) 68 mmHg (60-100); SAMPLE BLOOD; SAO2 94.8 % (95.0-100.0); THB 10.8 g/dL (11.5-17.4); pH(98.6) 7.34 (7.35-7.45)
[2016-09-15 09:59] LABS: MODALITY VENTIMASK
[2016-09-15 10:04] LABS: PCO2(98.6) 63 mmHg (35-45)
[2016-09-15] MEDS: MIRALAX PO SCH ×2 (10:27→21:19)
[2016-09-15] MEDS: NORVASC PO SCH (10:31)
--- NOTE | 2016-09-15 10:57 | Diag Imaging Result Document ---
PROCEDURE NAME: CHEST-PORTABLE - 09/15/2016 PORTABLE CHEST: COMPARISON: Compared to 09/09/2016. FINDINGS: The lungs are well expanded. The heart is not enlarged. The vessels are not distended. No pneumonia. No pleural effusions identified. IMPRESSION: Negative chest.
[2016-09-15] MEDS: LOVENOX SUBQ SCH (11:00)
[2016-09-15] MEDS: PROTONIX PO SCH (11:01)
[2016-09-15] MEDS: MAG-OX PO SCH (11:01)
[2016-09-15] MEDS: VITAMIN B-12 PO SCH (11:01)
[2016-09-15] MEDS ORDERED: SOLU-MEDROL IV ONE (12:07)
[2016-09-15] MEDS ORDERED: LOVENOX SUBQ SCH (12:15)
[2016-09-15] MEDS ORDERED: LOVENOX SUBQ ONE (12:31)
[2016-09-15] MEDS: TYLENOL PO PRN (14:38)
[2016-09-15] MEDS: METHADONE PO SCH (14:39)
--- NOTE | 2016-09-15 14:46 | PROGRESS NOTE ---
DATE: 09/15/2016 SUBJECTIVE: The patient has was noted to be short of breath and hypoxic this morning and she was placed on a Ventimask. The patient denies having any chest pain or cough at this time. OBJECTIVE: Vital Signs: Temperature 98 degrees, blood pressure 124/56, heart rate 61, respirations 20, O2 saturations 95% on a Ventimask. General: This is a chronically ill- appearing, elderly female, lying in bed, in no acute distress. HEENT: Head normocephalic, atraumatic. Heart: S1, S2. Normal. Regular rate and rhythm. Lungs: Clear to auscultation bilaterally. No wheezes, no rales. No rhonchi. Abdomen: Positive bowel sounds. Soft, nontender, nondistended. Extremities: No edema. No cyanosis. No calf tenderness. Neurologic: The patient is alert oriented x3. No focal neurologic deficits noted. LABORATORY: D-dimer is 0.85, ABG pH of 7.34, pCO2 63, PO2 68, bicarb of 30. O2 saturation 94% on 50% Ventimask. IMAGING: Chest x-ray shows no acute pathology. ASSESSMENT AND PLAN: 1. Acute hypoxemic& hypercapnic respiratory failure. The patient is currently on a Ventimask. Her D-dimer was slightly elevated. We will order a ventilation/perfusion scan done to rule out the possibility of the pulmonary embolus. The patient has been on deep venous thrombosis prophylaxis throughout the hospital stay. Will increase the patient's lovenox to treatment dose. Continue on bronchodilator therapy. 2. Asymptomatic bradycardia. Resolved. 3. Chronic obstructive pulmonary disease. The patient is not wheezing; however , she did desaturate this morning. We will give a dose of steroids. Continue with bronchodilator therapy and supplemental oxygen. 4. Situational depression. Continue on Lexapro. 5. Chronic kidney disease. Stable. 6. Disposition. manager managed backup services is working on placement for the patient. If her pulmonary condition improves, she should be stable for discharge to rehab. MTDD
--- NOTE | 2016-09-15 18:05 | Diag Imaging Result Document ---
PROCEDURE NAME: LUNG SCAN / VQ - 09/15/2016 STUDY: Ventilation perfusion nuclear medicine exam. COMPARISON: Compared to recent plain film taken earlier in the day. 34.3 millicuries DTPA given for the ventilation images. 6.1 millicuries MAA given IV for the perfusion images. There are no wedged shaped perfusion defects. No ventilation perfusion mismatches. IMPRESSION: No evidence of a pulmonary embolus.
[2016-09-15] MEDS: LEXAPRO PO SCH (21:18)
[2016-09-15] MEDS: DULCOLAX PR SCH (23:59)
[2016-09-16] MEDS ORDERED: LOVENOX SUBQ SCH
[2016-09-16] MEDS: DUONEB (A & A) INH SCH ×6 (03:37→23:23)
[2016-09-16] MEDS: APRESOLINE PO SCH ×3 (04:39→22:32)
[2016-09-16 05:22] LABS: ALLEN TEST YES; BE 4.5 mmoll (-3.0-3.0); BLOOD TYPE ARTERIAL; DRAW SITE R RADIAL; METHB 1.5 % (0.0-1.5); O2(CT) 13.4 mL/dL (15.0-23.0); PO2(98.6) 53 mmHg (60-100); SAMPLE BLOOD; SAO2 88.9 % (95.0-100.0); THB 11.2 g/dL (11.5-17.4); pH(98.6) 7.36 (7.35-7.45)
[2016-09-16 05:23] LABS: PCO2(98.6) 55 mmHg (35-45)
[2016-09-16 05:24] LABS: MODALITY ROOM AIR
[2016-09-16 07:23] LABS: HEMATOCRIT 34.3 % (37.0-47.0); HEMOGLOBIN 10.6 g/dL (12.0-16.0); MCH 29.6 PG (27-31); MCHC 30.9 g/dL (33-37); MCV 95.8 FL (81-99); MPV 10.4 FL (7.4-10.4); RBC 3.58 XMIL (4.2-5.4)
[2016-09-16] MEDS: ADVAIR 250/50 DISKUS INH SCH ×2 (07:40→19:48)
[2016-09-16 07:53] LABS: CALCIUM 9.2 mg/dL (8.8-10.2); POTASSIUM 4.9 mmol/L (3.5-5.1)
[2016-09-16] MEDS: PROTONIX PO SCH (08:24)
[2016-09-16] MEDS: MAG-OX PO SCH (08:24)
[2016-09-16] MEDS: NORVASC PO SCH (08:25)
[2016-09-16] MEDS: MIRALAX PO SCH ×2 (08:25→22:29)
[2016-09-16] MEDS: METHADONE PO SCH (08:25)
[2016-09-16] MEDS: LOVENOX SUBQ SCH (08:25)
[2016-09-16] MEDS: VITAMIN B-12 PO SCH (08:25)
--- NOTE | 2016-09-16 15:47 | PROGRESS NOTE ---
DATE: 09/16/2016 SUBJECTIVE: Ms. Angelina Bolaños is a 61-year-old female. She is in no acute distress. She is sitting on the side of bed comfortably, eating lunch. She states that she has been having issues where food is getting stuck but she does not have issues with coughing when she is eating. She does state that when she drinks carbonated drinks that they tend to bubble up easily. She does not feel like she refluxes to her lungs. She also complains of a right temporal wound that has been staying for the last 3 months. It gets better and then comes back, that she states drains clear to slightly bloody drainage. Currently it is scabbed over. Also complains of styes in her right eye. She said just some shortness of breath but nothing too abnormal from her usual when she is ambulating. OBJECTIVE: Vital signs: Temperature 98.4 degrees, heart rate 86, respiratory rate 18, blood pressure 131/64. She is 95% on 2 L nasal cannula. General: Ms. Bolaños is a 61-year-old female, no acute distress. Able to answer questions appropriately Cardiovascular: S1, S2. Regular rate and rhythm. No rubs, gallops, murmurs. Pulmonary: Clear to auscultation. Bilateral breath sounds. Prolonged expiration phase. Decreased in the bases but no obvious wheezing at this time. When I walked in the room she had her oxygen off. I instructed her to put it back on and she is currently on 2 L nasal cannula. GI: Soft, nontender, nondistended. Positive bowel sounds x4. Neurologic: A O x4. LABORATORY DATA: White blood cells 7,000, hemoglobin 10, hematocrit 34, platelet count 233,000. ABGs, pH 7.36, pCO2 55, PO2 53, bicarb 28, base excess 4.5, saturation 85% and this is on 21% room air. Lactate 1.4, sodium 140, potassium 4.9, BUN 30, creatinine is 1.4, glucose 108. IMAGING: He had a V/Q scan on 09/15/2016 that was ordered secondary to elevated D-dimer which showed no evidence of pulmonary emboli. ASSESSMENT AND PLAN: 1. Acute hypoxemic hypercapnic respiratory failure secondary to chronic obstructive pulmonary disease exacerbation. Wearing BiPAP at night and nasal cannula during the day. The only concern for this morning was she was on room air and her PO2 was 53. Will order an ABG for in the morning while she is on 2 L nasal cannula. We will likely need to keep chronic use of oxygen. Continue with bronchodilator therapy and aggressive pulmonary toilet. 2. Asymptomatic bradycardia. This has resolved. It looks like it maybe back on the she had a heart rate that dropped to 58-59 at one point in time, but primarily it has been anywhere from 60s to 80s. 3. Depression. Continue Lexapro. 4. Chronic kidney disease. BUN and creatinine have elevated slightly. Will continue to monitor. 5. Disposition. Awaiting for rehab. Likely can go tomorrow if she gets a room. 6. Deep venous thrombosis prophylaxis. Lovenox. 7. Gastrointestinal prophylaxis. Protonix. 8. Complains of food getting stuck while she is swallowing. Will need to likely make an appointment with outpatient gastroenterology for further work up. 9. Right temporal sore. It actually appears like it is in the healing stages. Dictated by ALFA Aguero for Kamaljit Hahn MD
[2016-09-16] MEDS: LEXAPRO PO SCH (22:31)
[2016-09-16] MEDS: DULCOLAX PR SCH (22:33)
[2016-09-16] MEDS: ZOFRAN IV PRN (22:46)
[2016-09-16] MEDS: TYLENOL PO PRN (22:46)
[2016-09-17] MEDS: DUONEB (A & A) INH SCH ×6 (03:20→23:17)
[2016-09-17] MEDS: APRESOLINE PO SCH ×3 (05:57→21:09)
[2016-09-17 06:35] LABS: MANUAL DIFF NEEDED? NO
[2016-09-17 06:44] LABS: BASO% 0.6 % (0.0-0.8); EOS# 0.39 X1000 (0.0-0.7); EOS% 4.4 % (0.0-10.0); HEMATOCRIT 32.1 % (37.0-47.0); LYMPH# 1.28 X1000 (1.2-3.4); LYMPH% 14.5 % (20.5-51.1); MCH 29.7 PG (27-31); MCHC 31.2 g/dL (33-37); MCV 95.3 FL (81-99); MONO% 9.1 % (1.7-9.3); MPV 10.1 FL (7.4-10.4); NEUT% 71.4 % (42.2-75.2); PLT 236 X1000 (130-400); RBC 3.37 XMIL (4.2-5.4)
[2016-09-17 07:02] LABS: ALBUMIN 3.3 g/dL (3.5-5.0); CALCIUM 8.6 mg/dL (8.8-10.2); MAGNESIUM 2.5 mg/dL (1.5-2.7); POTASSIUM 4.6 mmol/L (3.5-5.1); TOTAL BILIRUBIN 0.2 mg/dL (0.20-1.00); TOTAL PROTEIN 6.3 g/dL (6.3-8.3)
[2016-09-17] MEDS: ADVAIR 250/50 DISKUS INH SCH ×2 (07:21→19:44)
[2016-09-17 08:37] LABS: BLOOD TYPE ARTERIAL; SAMPLE BLOOD
[2016-09-17] MEDS: MAG-OX PO SCH (08:49)
[2016-09-17] MEDS: METHADONE PO SCH (08:49)
[2016-09-17] MEDS: MIRALAX PO SCH ×2 (08:49→21:09)
[2016-09-17] MEDS: VITAMIN B-12 PO SCH (08:49)
[2016-09-17] MEDS: PROTONIX PO SCH (08:49)
[2016-09-17] MEDS: LOVENOX SUBQ SCH (08:50)
[2016-09-17] MEDS: NORVASC PO SCH (08:50)
[2016-09-17] MEDS: ZOFRAN IV PRN (08:59)
[2016-09-17 10:50] LABS: ALLEN TEST NO; BE 6.1 mmoll (-3.0-3.0); DRAW SITE R BRACHIAL; METHB 1.5 % (0.0-1.5); O2(CT) 13.9 mL/dL (15.0-23.0); PO2(98.6) 63 mmHg (60-100); SAO2 95.2 % (95.0-100.0); THB 10.8 g/dL (11.5-17.4); pH(98.6) 7.38 (7.35-7.45)
[2016-09-17 10:56] LABS: MODALITY CANNULA; PCO2(98.6) 55 mmHg (35-45)
--- NOTE | 2016-09-17 11:23 | PROGRESS NOTE ---
DATE: 09/17/2016 SUBJECTIVE: Ms. Angelina Bolaños is a 61-year-old female. She is in no acute distress. She is resting in bed. She was aggravated because they obtained an ABG from her this morning, but otherwise, no other complaints. OBJECTIVE: Vital signs: Temperature 97.5, heart rate 53, respiratory rate 16, blood pressure 132/82, O2 saturation was 100% on BiPAP. She is currently on nasal cannula. General: Ms. Bolaños is a 61-year-old female in no acute distress, answers questions appropriately. She is a little drowsy this morning. Cardiovascular: S1, S2, bradycardic rate and rhythm. No rubs, gallops, or murmurs. Pulmonary: Clear to auscultation, bilateral breath sounds, no accessory muscle use or work of breathing noted, currently on 2 L nasal cannula. GI: Soft, nontender, nondistended. Positive bowel sounds x4. Neurological: Oriented x4, moves all extremities equally. Extremities: +2 dorsalis and radial pulses. LABORATORY DATA: White blood cells 8000, hemoglobin 10, hematocrit 32, platelet count 236. ABGs pending. Sodium 141, potassium 4.6, BUN 29, creatinine 1.5, glucose 90, calcium 8.6, albumin 3.3. IMAGING: None. ASSESSMENT AND PLAN: 1. Acute hypoxemic hypercapnic respiratory failure secondary to COPD exacerbation. She wears BiPAP at night, nasal cannula in the day. She is somewhat noncompliant, was found walking in the halls yesterday without her oxygen despite explaining to her the need to wear continuous oxygen. An ABG has been ordered for today while she is on 2 L nasal cannula. This gas has not been resulted yet. Continue with bronchodilator therapy and aggressive pulmonary toilet. 2. Asymptomatic bradycardia. She is in the 50s this morning, but other vitals are stable. 3. Depression. Continue Lexapro. 4. Chronic kidney disease is currently stable. 5. Complains of food being stuck while she swallows. She will need to make an outpatient gastroenterology appointment for further workup. No signs of aspiration. 6. Right temporal sore. This still appears to be healing. 7. Tobacco abuse. Cessation discussed. 8. DVT prophylaxis. Lovenox. 9. GI prophylaxis. Protonix. 10.Disposition. Awaiting for rehab. Likely gets to go once her oxygen status is stable. Dictated by ALFA Aguero for Amauri Mix MD
[2016-09-17 18:19] LABS: ALLEN TEST NO; BE 6.5 mmoll (-3.0-3.0); BLOOD TYPE ARTERIAL; DRAW SITE R BRACHIAL; METHB 1.4 % (0.0-1.5); O2(CT) 13.3 mL/dL (15.0-23.0); PO2(98.6) 64 mmHg (60-100); SAMPLE BLOOD; SAO2 94.7 % (95.0-100.0); THB 10.4 g/dL (11.5-17.4); pH(98.6) 7.36 (7.35-7.45)
[2016-09-17 18:20] LABS: MODALITY CANNULA; PCO2(98.6) 59 mmHg (35-45)
[2016-09-17] MEDS: TYLENOL PO PRN (21:06)
[2016-09-17] MEDS: ZOFRAN PO PRN (21:06)
[2016-09-17] MEDS: LEXAPRO PO SCH (21:06)
[2016-09-17] MEDS: DULCOLAX PR SCH (21:08)
[2016-09-18] MEDS: DUONEB (A & A) INH SCH ×5 (03:37→23:33)
[2016-09-18] MEDS: APRESOLINE PO SCH ×3 (05:43→20:09)
[2016-09-18 06:06] LABS: MANUAL DIFF NEEDED? NO
[2016-09-18 06:21] LABS: BASO% 0.6 % (0.0-0.8); EOS# 0.45 X1000 (0.0-0.7); EOS% 5.7 % (0.0-10.0); HEMATOCRIT 32.8 % (37.0-47.0); HEMOGLOBIN 10.1 g/dL (12.0-16.0); LYMPH# 1.42 X1000 (1.2-3.4); LYMPH% 18.1 % (20.5-51.1); MCH 29.3 PG (27-31); MCHC 30.8 g/dL (33-37); MCV 95.1 FL (81-99); MONO% 10.2 % (1.7-9.3); MPV 9.7 FL (7.4-10.4); NEUT% 65.4 % (42.2-75.2); PLT 249 X1000 (130-400); RBC 3.45 XMIL (4.2-5.4)
[2016-09-18 06:31] LABS: ALBUMIN 3.1 g/dL (3.5-5.0); CALCIUM 8.6 mg/dL (8.8-10.2); MAGNESIUM 2.4 mg/dL (1.5-2.7); POTASSIUM 4.3 mmol/L (3.5-5.1); TOTAL BILIRUBIN 0.25 mg/dL (0.20-1.00); TOTAL PROTEIN 6.2 g/dL (6.3-8.3)
[2016-09-18] MEDS: ADVAIR 250/50 DISKUS INH SCH (07:25)
[2016-09-18] MEDS: PROTONIX PO SCH (10:29)
[2016-09-18] MEDS: NORVASC PO SCH (10:29)
[2016-09-18] MEDS: VITAMIN B-12 PO SCH (10:29)
[2016-09-18] MEDS: METHADONE PO SCH (10:29)
[2016-09-18] MEDS: LOVENOX SUBQ SCH (10:29)
[2016-09-18] MEDS: MAG-OX PO SCH (10:29)
[2016-09-18] MEDS: MIRALAX PO SCH ×2 (10:30→20:09)
--- NOTE | 2016-09-18 17:03 | PROGRESS NOTE ---
DATE: 09/18/2016 SUBJECTIVE: This patient states that she is feeling much better. She is not complaining of shortness of breath nausea, vomiting, diarrhea, or constipation. No fever. No chills. When I evaluated this patient she was walking inside the room without any problems. This patient states that tomorrow family members will be here in the hospital and we can probably discharge this patient tomorrow. OBJECTIVE: Vital Signs: Temperature 98.3 degrees, pulse 77, respiratory rate 16, blood pressure 139/51, oxygen saturation 99 on 4 L of nasal cannula. HEENT: Head normocephalic. No trauma. PERRLA. Neck: Supple. No JVD. No masses. Central trachea. Skin: She has a scratched lesion at the level of the right temporal area. Cardiovascular: RRR. No murmurs. No gallops. No rubs. Abdomen: Soft, nontender, nondistended. No hepatosplenomegaly. Chest: Clear to auscultation. No wheezing. No rales. Extremities: No edema. No clubbing. No cyanosis. Neurological: The patient is alert and oriented x4. No focal neurological deficits. LABORATORY: WBC 7.8, hemoglobin 10.1, hematocrit 32.8, platelets 249,000. Sodium 140, potassium 4.3, chloride 103, bicarbonate 28, BUN 22, creatinine 1.3, glucose 86, calcium 8.6, albumin is 3.1. ASSESSMENT AND PLAN: 1. Acute hypoxemic and hypercapnic respiratory failure secondary to chronic obstructive pulmonary disease exacerbation. Usually she should be at home with oxygen. She does have oxygen at home but she is not using it. During her hospitalization she has been on oxygen and she has been doing fine. 2. Asymptomatic bradycardia. Today she is not bradycardic. Will monitor. 3. Depression. Continue with Lexapro. 4. Chronic kidney disease. This is her baseline. 5. Possible dysphagia. She will make an appointment with gastroenterology as an outpatient for further workup. No signs of aspiration. 6. Right temporal sore. This appears to be healing. No pain. 7. Tobacco use. This patient has been highly advised against tobacco use. I will continue with daily cessation education. 8. Deep vein thrombosis prophylaxis. We will continue with Lovenox. 9. Gastrointestinal prophylaxis. Continue with Protonix. 10. Disposition. At this point, I am not quite sure if she will benefit from going to the rehab center. Family members will be around tomorrow and hopefully this patient can be discharged.
[2016-09-18] MEDS: DULCOLAX PR SCH (20:09)
[2016-09-18] MEDS: LEXAPRO PO SCH (20:09)
[2016-09-18] MEDS: TYLENOL PO PRN (20:12)
[2016-09-18] MEDS: ZOFRAN PO PRN (20:12)
[2016-09-19] MEDS: DUONEB (A & A) INH SCH ×3 (03:39→11:56)
[2016-09-19] MEDS: APRESOLINE PO SCH ×2 (04:48→13:38)
[2016-09-19 06:26] LABS: MANUAL DIFF NEEDED? NO
[2016-09-19 06:28] LABS: BASO% 0.6 % (0.0-0.8); EOS# 0.46 X1000 (0.0-0.7); EOS% 6.5 % (0.0-10.0); HEMATOCRIT 31.9 % (37.0-47.0); HEMOGLOBIN 9.9 g/dL (12.0-16.0); LYMPH# 1.73 X1000 (1.2-3.4); LYMPH% 24.6 % (20.5-51.1); MCH 29.4 PG (27-31); MCV 94.7 FL (81-99); MONO# 0.81 X1000 (0.11-0.59); MONO% 11.5 % (1.7-9.3); MPV 9.9 FL (7.4-10.4); NEUT% 56.8 % (42.2-75.2); PLT 266 X1000 (130-400); RBC 3.37 XMIL (4.2-5.4)
[2016-09-19 06:42] LABS: ALBUMIN 3.3 g/dL (3.5-5.0); CALCIUM 8.4 mg/dL (8.8-10.2); MAGNESIUM 2.4 mg/dL (1.5-2.7); POTASSIUM 4.4 mmol/L (3.5-5.1); TOTAL BILIRUBIN 0.2 mg/dL (0.20-1.00); TOTAL PROTEIN 6.2 g/dL (6.3-8.3)
[2016-09-19 08:00] VITALS: BP 142/68
[2016-09-19] MEDS: ADVAIR 250/50 DISKUS INH SCH (08:24)
[2016-09-19] MEDS: PROTONIX PO SCH (08:32)
[2016-09-19] MEDS: VITAMIN B-12 PO SCH (08:32)
[2016-09-19] MEDS: METHADONE PO SCH (08:32)
[2016-09-19] MEDS: LOVENOX SUBQ SCH (08:32)
[2016-09-19] MEDS: MAG-OX PO SCH (08:32)
[2016-09-19] MEDS: MIRALAX PO SCH (08:32)
[2016-09-19] MEDS: NORVASC PO SCH (08:32)
--- NOTE | 2016-09-19 14:57 | DISCHARGE SUMMARY ---
ADMISSION DATE: 09/09/2016 DISCHARGE DATE: 09/19/2016 CONSULTATIONS: Dr. Meyer of cardiology. STUDIES AND PROCEDURES: 1. Head CT showed minimal chronic microvascular white changes. No evidence of acute disease. 2. Echocardiogram showed an EF of 67%, pulmonary pressures around 61/36 mmHg indicating pulmonary hypertension. 3. Stress test showed no evidence of abnormal extracardiac uptake. No evidence of any ischemic related perfusion. IMAGIN. V/Q scan showed no evidence of pulmonary embolism. 2. Lumbar spine CT showed the bones are osteopenic and there are [id number] degenerative changes. Multiple small bulging disks resulting in spinal stenosis and neuroforaminal narrowing. 3. Abdominal x-ray nonspecific mild colonic gas. DISCHARGE DIAGNOSES: 1. Acute hypoxemic and hypercapnic respiratory failure secondary to chronic obstructive pulmonary disease exacerbation, resolved. The patient does use home O2. However, she is not compliant. She has not been compliant with it throughout her hospital stay. The patient has been up walking the halls. She has gone out to the parking lot to smoke. She has helped family members carry goods to their car. Today, Dr. Jerez was trying to talk to the patient to discharge her. She was unaccounted for more than an hour, not on O2. 2. Asymptomatic bradycardia. Stable. 3. Depression. Continue with Lexapro. 4. Chronic kidney disease. Chronic and stable. 5. Possible dysphagia. Patient to see a GI specialist outpatient for further workup. No signs of aspiration. 6. Right temporal sore. This is healing. 7. Tobacco abuse and continued use. The patient has been highly advised against smoking as well as the means to quit with daily education. Again, patient has made the comment she does not want to wear her oxygen because she does want to continue to smoke, and she wants to continue to smoke while she is at rehab or if she goes home. The patient was going to be discharged home. After web content & social media manager spoke with rehab again, they have accepted her to inpatient rehab and [facility] have a bed today. Previously she was going to go home with a granddaughter. HOSPITAL COURSE: Briefly, Ms Bolaños is a 61-year-old female, well known to our service. She was recently discharged on 08/28/2016, diagnosed with COPD exacerbation and carries a history of hepatitis C, hypertension fairly under control in the past, uterine cancer that is in remission, hypertensive encephalopathy resulting in a seizure last year, nicotine dependence, opiate dependence on methadone maintenance, chronic left lower extremity edema, chronic iron deficiency anemia, malignant hypertension, chronic opioid dependence, again on methadone maintenance. She presented to the ED with abdominal pain, dry heaving, altered mental status. Her symptoms had begun the day before her admission. She reported pain right under her belly button that was intermittent and dull, associated with dry heaving. Her daughter at the bedside reported that she had been more lethargic and had not really been responsive, so on the morning of her admission she was brought to the ED for evaluation. The patient's heart rate was ranging anywhere from 20-120. Currently intermittent transcutaneous pacing. When the heart rate dropped below 40, her laboratory data was largely unremarkable. Cardiology was consulted. She was moved to the ICU. The auriculotherapist felt that the bradycardia may be vagal related because of the dry heaves. She was monitored for any significant bradyarrhythmias. Given her accelerated hypertension, she was started on Norvasc as well as hydralazine. She also had an echocardiogram done that did show a normal EF and pulmonary hypertension. She was also placed on bronchodilators and had a normal stress test. Her symptomatic bradycardia resolved as well as her metabolic encephalopathy. Her hypertension was controlled with adjustments in her home medications. Again, patient while admitted here was noncompliant with her O2. She did want to go to inpatient rehabilitation on discharge. Supervisor Histology has been working on her placement. The patient spent several days extra in the hospital waiting for placement. She was initially denied and on day of discharge that she was going home with the daughter, insurance said that due to her may not be able to be appropriately discharged home with a granddaughter hopefully, because the patient somehow lost her residence, they would accept her to inpatient hospice. The request was sent to [facility]. They have accepted the patient. Again, while Dr. Jerez was looking for the patient to assess her, he spent more than an hour trying to get the patient. While she was here, she had been up walking the halls. She had been out to the parking lot and smoking while she was a patient. Again, being noncompliant with her O2. The patient is appropriate for discharge today. She will be going to rehab. Dr. Jerez is made aware that she now has a bed at rehab. DISCHARGE VITAL SIGNS: Temperature 98.2 degrees, heart rate 56, respirations 16, blood pressure 142/68, O2 is 97% on 4 L nasal cannula. DISCHARGE MEDICATIONS: 1. Protonix 40 mg p.o. daily. 2. Bisacodyl 5 mg p.o. p.r.n. 3. Benadryl 25 mg p.o. p.r.n. 4. Vitamin B12 1000 mcg p.o. daily. 5. Magnesium 250 mg p.o. daily. 6. Methadone liquid 50 mg p.o. RT daily. 7. Advair Diskus 250/50 one puff inhaled RT b.i.d. 8. Lexapro 20 mg p.o. at bedtime. 9. Apresoline 50 mg p.o. q.8 hours. 10. Norvasc 10 mg p.o. daily. DISCHARGE DIET: Healthy heart. FOLLOWUP: The patient is being discharged to [facility]. She will follow up with in 7-10 days as well as her auriculotherapist, Dr. Meyer, in 3-4 weeks. Patient will also need to follow up with her primary care doctor to see when it is okay to resume her Lasix and potassium. Patient can return to the ED for any worsening of symptoms. DISCHARGE TIME: Greater than 30 minutes. Dictated by ALFA Neville for Abraham Hall MD
== END 2016-09-19 15:25 | DRG 308 ==
LOC: EDUNIT# → EDBD → ED 10:24 → SUPCPDRO 10:24 → ICU 14:21 → 4N 09-12 18:10
PROVIDERS: ATTEND Internal Medicine
DX: R00.1 Bradycardia, unspecified (principal); G93.41 Metabolic encephalopathy; J96.01 Acute respiratory failure with hypoxia; J96.02 Acute respiratory failure with hypercapnia; I12.9 Hypertensive chronic kidney disease with stage 1 through stage 4 chronic kidney disease, or unspecified chronic kidney disease; D50.9 Iron deficiency anemia, unspecified; F17.210 Nicotine dependence, cigarettes, uncomplicated; F11.20 Opioid dependence, uncomplicated; J44.1 Chronic obstructive pulmonary disease with (acute) exacerbation; N18.2 Chronic kidney disease, stage 2 (mild); L98.9 Disorder of the skin and subcutaneous tissue, unspecified; K57.90 Diverticulosis of intestine, part unspecified, without perforation or abscess without bleeding; G89.29 Other chronic pain; F43.21 Adjustment disorder with depressed mood; Z79.899 Other long term (current) drug therapy; Z85.42 Personal history of malignant neoplasm of other parts of uterus; Z91.19 Patient's noncompliance with other medical treatment and regimen; Z86.19 Personal history of other infectious and parasitic diseases; Z82.49 Family history of ischemic heart disease and other diseases of the circulatory system; Z83.3 Family history of diabetes mellitus
CPT/HCPCS: 70450; 71010; 72131; 74020; 78452; 78582; 80048; 80053; 80069; 81001; 82140; 82550; 82805; 83735; 83880; 84100; 84484; 85025; 85027; 85379; 85610; 85730; 93005; 93010; 93017; 93306; 94640; 94660; 94761; 94762; A9500; A9539; A9540; C9113; G0480; J1250; J1650; J2405; J2930; J7030; J7040; P9612; S0109; 80324; 80345; 80346; 80349; 80353; 80358; 80361; 80365; 83992; 99285-25; S0164

== ENCOUNTER 2016-10-05 09:09 | Inpatient (IN) ==
[2016-10-05] MEDS ORDERED: DUONEB (A & A) ONE (09:31)
[2016-10-05] MEDS ORDERED: PREDNISONE ONE (10:16)
[2016-10-05] MEDS: SOLU-MEDROL IV SCH ×2 (13:45→21:30)
[2016-10-05] MEDS ORDERED: SOLU-MEDROL ONE (14:36)
[2016-10-05] MEDS ORDERED: D5W ONE (14:38)
[2016-10-05] MEDS ORDERED: LEVAQUIN ONE (14:38)
--- NOTE | 2016-10-05 15:03 | HISTORY AND PHYSICAL ---
PRIMARY CARE PROVIDER: Dr. Salcido. CHIEF COMPLAINT: Shortness of breath now unresponsive. HISTORY OF PRESENT ILLNESS: Ms. Angelina Bolaños is a female with a history of chronic pain syndrome who takes methadone, COPD who is on 3 L of oxygen at home who had a recent admit on 09/21/2016. Currently unable to pull up past medical records. Apparently started feeling some shortness of breath that has worsened over the last 2 days, some subjective fevers and chills. Due to her increased shortness of breath and altered mentation her sister called an ambulance. Apparently she took methadone around 8 a.m. It is unknown the amount because she was essentially unresponsive not too long after being admitted. The ambulance found her at home with her sats at 82% on room air. They gave her DuoNeb with oxygen in route with an increase in saturation of 93%. Once she arrived she had a significant decreased level of consciousness and decrease in saturations requiring BiPAP due to respiratory acidosis per ABG. She received DuoNeb x1, 60 mg of p.o. prednisone prior to completely essentially unresponsive for them. Her chest x-ray did show a right lower lobe infiltrate versus pneumonia. At the bedside she will now follow some commands. She is extremely lethargic. CT of the chest has been ordered. PAST MEDICAL HISTORY: 1. Chronic pain syndrome, on methadone. 2. COPD with 3 L nasal cannula at home. 3. Hypertension. 4. Recent admit 09/21/2016. SURGICAL HISTORY: Cholecystectomy, hysterectomy, section, tonsillectomy. SOCIAL HISTORY: One pack per day smoker x15 years. Denies alcohol. Denies illicit drug use. She is on chronic methadone use. She has also had a recent 1 week rehab stent for physical therapy. FAMILY HISTORY: Was unable to be obtained. ALLERGIES: No known drug allergies. HOME MEDICATIONS: Med rec was unable to be completely verified as the patient became more unresponsive. REVIEW OF SYSTEMS: Unable to be obtained but she did nod her head no to pain. LABORATORY DATA: White blood cells 13,000, hemoglobin 11, hematocrit 37, platelet count 279,000. Sodium 136, potassium 4.9, BUN 21, creatinine is 1.4 .glucose 100. D-dimer 0.97. ProBNP 1409. Lactate 0.7, pH 7.24, pCO2 63, PO2 55, that was on 30% BiPAP 12/5 an hour at 30 % 16/5. IMAGING: Chest x-ray, right lower lobe infiltrate. PHYSICAL EXAMINATION: VITAL SIGNS: Heart rate 91, blood pressure 186/70, respiratory rate 24, 81% saturation but was up to 93% after treatments. Temperature was not reported. GENERAL: Ms. Angelina Bolaños is very lethargic. She follows some commands but unable to answer questions. HEENT: Atraumatic, normocephalic. Pupils are equal, reactive. Mucous membranes are dry. NECK: No JVD or carotid bruits. CARDIOVASCULAR: S1, S2. Regular rate and rhythm. No rubs, gallops, or murmurs. PULMONARY: Clear to auscultate in the upper lobes. Lower lobes are decreased with some rhonchi on BiPAP. No accessory muscle use at this time. BiPAP settings, rate is 20, 30 % FiO2, 16/5. GI: Soft, nontender, nondistended. Positive bowel sounds x4. NEURO: Was nonverbal but follows some simple commands. She squeezed hands and she would roll her feet to command, opened her eyes to verbal and tactile stimuli. EXTREMITIES: Bilateral lower extremity edema about a 2+. Left lower extremity with redness, tightness and warmness. +2 dorsalis and radial pulses. SKIN: Warm, dry, intact except for left lower extremity with redness and warmness and then right temporal area has a wound on it or a scab. ASSESSMENT AND PLAN: 1. Chronic obstructive pulmonary disease exacerbation acute on chronic, hypercarbic, hypoxemic respiratory failure. Will do Solu-Medrol 80 q.8h. DuoNeb q.4. Pulmonary consult Dr. Christensen. BiPAP and pulmonary toilet. Antibiotic, Vancomycin/Zosyn. Budesonide nebs and will repeat ABGs at 3 p.m., then to the ICU. 2. Right lower lobe pneumonia per chest x-ray. Some infiltrates. Will continue with the antibiotics. 3. Possible methadone overdose with chronic pain syndrome. Apparently she took her methadone this morning around 8 this and was confused with some altered mental status afterwards. Will hold her NPO in ICU for close monitoring. 4. Metabolic toxic encephalopathy. Monitor in the ICU. 5. [place]. IV fluids. We will get a urinalysis with urine sodium and creatinine. 6. Left lower extremity cellulitis versus DVT. Will rule out with bilateral lower extremity ultrasound as she does have lower extremity edema in both legs. 7. Deep venous thrombosis prophylaxis. Heparin 5000 units subcutaneous twice daily. 8. Gastrointestinal prophylaxis. Proton pump inhibitor. 9. Tobacco abuse. Once she is appropriate and able to discuss cessation will do. Patient seen and examined. Agree with ALFA note. It reflects my assessment and plan Dictated by ALFA Aguero for Abraham Hall MD cc: MD Dr. Omari Cullen CRNP Cesar Garcia-Rodriguez, MD [facility]
[2016-10-05] MEDS ORDERED: DUONEB (A & A) INH PRN (16:39)
[2016-10-05] MEDS ORDERED: VANCOMYCIN IV PER PHARMACY MISC SCH (16:45)
[2016-10-05] MEDS: ZOSYN 3.375 GM/NS 3.375 GM/50 ML IVPB IV SCH ×2 (17:00→22:42)
[2016-10-05] MEDS: NS 1,000 ML IV SCH (17:27)
[2016-10-05] MEDS: COLACE PO SCH (17:29)
--- NOTE | 2016-10-05 17:30 | Diag Imaging Result Document ---
PROCEDURE NAME: CHEST-PORTABLE - 10/05/2016 AP PORTABLE CHEST ERECT AT 0950 HOURS: COMPARISON: There are no previous studies available for comparison. FINDINGS: The heart size is at the upper limits of normal. There are ill-defined opacities in both lung bases. This may represent atelectasis or pneumonia. IMPRESSION: Bibasilar atelectasis versus pneumonia.
--- NOTE | 2016-10-05 17:50 | Diag Imaging Result Document ---
PROCEDURE NAME: CT THORAX W/O CONTRAST - 10/05/2016 CT OF THE CHEST WITHOUT CONTRAST: FINDINGS: There are no previous studies available for comparison. There are some emphysematous changes. There is an ill-defined and nodular opacity in the left superior segment with multiple other coarse opacities present in the right lower lobe more caudally. There is also some degree of atelectasis. There are similar opacities in the posterior lingula and the right middle lobe and there are pleural based opacities also in the posterior costophrenic sulcus of the right lower lobe. There is no evidence of adenopathy. There is no significant free fluid. There are coronary calcifications. There are spondylotic changes in the thoracic spine. No acute bony abnormalities are demonstrated. IMPRESSION: Patchy and nodular pulmonary opacities as described. The possibility of pneumonia or even metastatic disease cannot be excluded.
[2016-10-05] MEDS ORDERED: NS 1,000 ML IV ONE (18:00)
[2016-10-05] MEDS ORDERED: ATROPINE SYRINGE IV ONE (18:00)
[2016-10-05] MEDS ORDERED: ATROPINE SYRINGE ONE ×2 (18:11→18:12)
[2016-10-05 18:16] LABS: MANUAL DIFF NEEDED? NO
[2016-10-05 18:31] LABS: ALLEN TEST NO; BE -1.5 mmoll (-3.0-3.0); BLOOD TYPE ARTERIAL; DRAW SITE R BRACHIAL; METHB 1.1 % (0.0-1.5); PO2(98.6) 127 mmHg (60-100); SAMPLE BLOOD; THB 10.4 g/dL (11.5-17.4); pH(98.6) 7.24 (7.35-7.45)
[2016-10-05 18:32] LABS: ALLEN TEST NO; BE -0.9 mmoll (-3.0-3.0); BLOOD TYPE ARTERIAL; DRAW SITE R BRACHIAL; METHB 1.7 % (0.0-1.5); O2(CT) 13.5 mL/dL (15.0-23.0); PO2(98.6) 61 mmHg (60-100); SAMPLE BLOOD; SAO2 94.8 % (95.0-100.0); THB 10.8 g/dL (11.5-17.4); pH(98.6) 7.25 (7.35-7.45)
[2016-10-05 18:35] LABS: ALLEN TEST NO; BE -1.3 mmoll (-3.0-3.0); BLOOD TYPE ARTERIAL; DRAW SITE L BRACHIAL; METHB 1.7 % (0.0-1.5); O2(CT) 13.6 mL/dL (15.0-23.0); PO2(98.6) 55 mmHg (60-100); SAMPLE BLOOD; SAO2 93.9 % (95.0-100.0); THB 11.1 g/dL (11.5-17.4); pH(98.6) 7.24 (7.35-7.45)
[2016-10-05 18:38] LABS: PCO2(98.6) 62 mmHg (35-45)
[2016-10-05 18:39] LABS: MODALITY BI PAP
[2016-10-05 18:40] LABS: MODALITY BI PAP; PCO2(98.6) 62 mmHg (35-45)
[2016-10-05 18:41] LABS: PCO2(98.6) 63 mmHg (35-45)
[2016-10-05 18:42] LABS: MODALITY BI PAP
[2016-10-05] MEDS: DUONEB (A & A) INH SCH ×2 (19:15→22:34)
[2016-10-05] MEDS ORDERED: DOPAMINE 400 MG/D5W 400 MG/500 ML IV.SOLN IV PRN (19:18)
[2016-10-05 19:38] LABS: URINE MICRO REVIEW NEEDED? NO; URINE SOURCE CATH
[2016-10-05 20:06] LABS: COLOR YELLOW; UR EPITHELIAL CELLS <10 /HPF (<10); URINE BACTERIA NEGATIVE /HPF; URINE RBC <10 /HPF (<10); URINE WBC <10 /HPF (<10)
[2016-10-05 20:07] LABS: BILIRUBIN URINE NEGATIVE (NEGATIVE); BLOOD URINE NEGATIVE (NEGATIVE); GLUCOSE URINE NEGATIVE (NEGATIVE); PH URINE 5.5; PROTEIN URINE 10 mg/dL (NEGATIVE); TURBIDITY URINE CLEAR (CLEAR)
[2016-10-05 20:08] LABS: LEUKOCYTES URINE NEGATIVE (NEGATIVE); NITRITE URINE NEGATIVE (NEGATIVE); UROBILINOGEN URINE NORMAL (NORMAL)
[2016-10-05] MEDS: HEPARIN SUBQ SCH (20:30)
[2016-10-05 20:36] LABS: BASO% 0.1 % (0.0-0.8); EOS# 0.26 X1000 (0.0-0.7); EOS% 1.9 % (0.0-10.0); HEMATOCRIT 37.2 % (37.0-47.0); HEMOGLOBIN 11.7 g/dL (12.0-16.0); IMM GRAN# 0.03 X1000 (0.0-0.04); IMM GRAN% 0.2 % (0.0-0.5); LYMPH# 1.04 X1000 (1.2-3.4); LYMPH% 7.6 % (20.5-51.1); MCH 29.3 PG (27-31); MCHC 31.5 g/dL (33-37); MCV 93.2 FL (81-99); MONO# 0.76 X1000 (0.11-0.59); MONO% 5.5 % (1.7-9.3); MPV 9.6 FL (7.4-10.4); NEUT% 84.7 % (42.2-75.2); PLT 279 X1000 (130-400); RBC 3.99 XMIL (4.2-5.4)
[2016-10-05] MEDS ORDERED: VANCOMYCIN 1.4 GM in NS 250 ML IV ONE (21:00)
[2016-10-05] MEDS: PRILOSEC PO SCH (21:00)
--- NOTE | 2016-10-05 21:33 | EKG Report ---
Test Performed on : 10/05/2016 11:28:10 AM Test Reason : COPD Blood Pressure : / mmHG Vent. Rate : 076 BPM Atrial Rate : 076 BPM P-R Int : 134 ms QRS Dur : 080 ms QT Int : 388 ms P-R-T Axes : 063 046 042 degrees QTc Int : 436 ms Normal sinus rhythm. Normal ECG When compared with ECG of 05-OCT-2016 09:27, (Unconfirmed) NC interval has increased Unconfirmed Result
--- NOTE | 2016-10-05 21:33 | EKG Report ---
Test Performed on : 10/05/2016 09:27:25 AM Test Reason : SOB Blood Pressure : / mmHG Vent. Rate : 084 BPM Atrial Rate : 084 BPM P-R Int : 098 ms QRS Dur : 084 ms QT Int : 372 ms P-R-T Axes : 063 035 033 degrees QTc Int : 439 ms Sinus rhythm. with short MA Nonspecific ST abnormality Abnormal ECG No previous ECGs available Unconfirmed Result
[2016-10-05 21:54] LABS: UR CREAT RANDOM 59.1 mg/dL (11-20)
[2016-10-06 00:13] LABS: AGAP 14; ALBUMIN 4.1 g/dL (3.5-5.0); BUN 21 mg/dL (8-22); CALCIUM 8.7 mg/dL (8.8-10.2); CHLORIDE 98 mmol/L (98-107); COSMO 275; POTASSIUM 4.9 mmol/L (3.5-5.1); SODIUM 136 mmol/L (136-145); TCO2 24 mmol/L (25-35); TOTAL PROTEIN 7.2 g/dL (6.3-8.3)
[2016-10-06 00:14] LABS: ALKALINE PHOSPHATASE 113 U/L (32-104); CK PROFILE 375 U/L (24-173); GOT 29 U/L (10-30); GPT 18 U/L (10-36)
[2016-10-06 00:15] LABS: CK INDEX 2.3 (0.0-2.5); CK-MB 8.79 ng/mL (0.0-5.0); UR AMPHETAMINES QUAL NONE DETECTED (NONE DETECT); UR BARBITUATES QUAL NONE DETECTED (NONE DETECT); UR BENZODIAZEPIN QUAL NONE DETECTED (NONE DETECT); UR CANNABINOIDS QUAL NONE DETECTED (NONE DETECT); UR COCAINE QUAL NONE DETECTED (NONE DETECT); UR METHADONE QUAL PRESUMPTIVE POSITIVE (NONE DETECT); UR OPIATES QUAL NONE DETECTED (NONE DETECT); UR OXYCODONE QUAL NONE DETECTED (NONE DETECT); UR PCP QUAL NONE DETECTED (NONE DETECT)
--- NOTE | 2016-10-06 00:25 | CONSULTATION ---
DATE OF CONSULTATION: 10/05/2016 REQUESTING PHYSICIAN: Dr. Jerez. REASON FOR CONSULTATION: Respiratory failure. HISTORY OF PRESENT ILLNESS: Ms. Bolaños is a 61-year-old white female, with a greater than 40-pack- year history for tobacco, ongoing tobacco use, chronic pain syndrome, chronic hypoxemic and hypercapnic respiratory failure, who has had multiple admissions to the hospital with COPD exacerbations. The patient was recently admitted to the hospital from 09/09 to 09/19/2016, and was discharged to a rehab stay. The details of that study are not available. The patient was brought to the emergency room by ambulance, being poorly responsive. Patient continues to take her methadone, but the dosing is not known. The patient's oxygen saturation was 82% upon arrival. She has been initiated on BiPAP. She is arousable. PAST MEDICAL HISTORY: 1. Severe COPD with chronic hypoxemic and hypercapnic respiratory failure with ongoing tobacco use. 2. Chronic active hepatitis C. 3. Chronic back pain, on methadone. 4. Bipolar disorder. 5. Dyslipidemia. 6. Gastroesophageal reflux. 7. History of uterine cancer, status post hysterectomy. 8. History of phytobezoar. 9. History of diverticulosis. 10. History of proctitis. 11. Internal/external hemorrhoids. SOCIAL HISTORY: Patient is disabled. Ongoing tobacco use. FAMILY HISTORY: Positive for heart disease, breast cancer and diabetes mellitus. REVIEW OF SYSTEMS: Limited. PHYSICAL EXAMINATION: General: Reveals a chronically ill-appearing, white female, who appears older than her stated age. She is currently on BiPAP. She does respond to painful stimulation, and will open her eyes. HEENT: Pupils are equal but sluggish. Oropharynx evaluation is limited with BiPAP in position. Neck: Supple. Chest: Reveals scattered rhonchi bilaterally. Cardiac: Regular rate. Normal S1, normal S2. Abdomen: Soft without hepatosplenomegaly. LABORATORIES: Chest x-ray reveals new bibasilar infiltrates, which were not present on chest x- ray last visit. White blood count 13.0, hemoglobin 11.0, platelet count 279,000. Arterial blood gas reveals pH 7.24, pCO2 of 63, PO2 of 55, on BiPAP earlier today. IMPRESSION: A 61-year-old white female, with multiple medical problems, including chronic hypoxemic and hypercapnic respiratory failure, who presents with acute on chronic hypoxemic respiratory failure and acute on chronic hypercapnic respiratory failure, leukocytosis, bibasilar pneumonia, suspicious for aspiration. Her altered mental status may be related to an active illness or could be related to methadone dosing. RECOMMENDATIONS: 1. Repeat arterial blood gas now. If she has evidence of further decompensation, she will require intubation and mechanical ventilation. 2. Agree with current broad-spectrum antibiotic dosing. 3. Continue BiPAP with repeat arterial blood gas now. 4. Smoking cessation is strongly recommended. 5. Additional recommendations pending hospital course. cc: Jason Christensen MD
[2016-10-06] MEDS: DUONEB (A & A) INH SCH ×6 (03:12→22:37)
[2016-10-06] MEDS: NS 1,000 ML IV SCH (04:59)
[2016-10-06] MEDS: ZOSYN 3.375 GM/NS 3.375 GM/50 ML IVPB IV SCH ×4 (04:59→22:30)
[2016-10-06] MEDS: SOLU-MEDROL IV SCH ×2 (05:11→18:18)
[2016-10-06 05:12] LABS: BLOOD TYPE ARTERIAL; METHB 1.6 % (0.0-1.5); PO2(98.6) 68 mmHg (60-100); SAMPLE BLOOD; THB 10.2 g/dL (11.5-17.4); pH(98.6) 7.28 (7.35-7.45)
[2016-10-06 05:13] LABS: ALLEN TEST YES; DRAW SITE R RADIAL; MODALITY BI PAP; O2(CT) 13.4 mL/dL (15.0-23.0)
[2016-10-06 05:14] LABS: PCO2(98.6) 56 mmHg (35-45)
[2016-10-06 06:27] LABS: BASO% 0.1 % (0.0-0.8); HEMATOCRIT 34.5 % (37.0-47.0); HEMOGLOBIN 11.1 g/dL (12.0-16.0); LYMPH# 0.72 X1000 (1.2-3.4); LYMPH% 4.3 % (20.5-51.1); MANUAL DIFF NEEDED? YES; MCH 29.5 PG (27-31); MCHC 32.2 g/dL (33-37); MCV 91.8 FL (81-99); MONO# 0.28 X1000 (0.11-0.59); MONO% 1.7 % (1.7-9.3); MPV 9.6 FL (7.4-10.4); NEUT% 93.9 % (42.2-75.2); PLT 263 X1000 (130-400); RBC 3.76 XMIL (4.2-5.4)
[2016-10-06] MEDS: PRILOSEC PO SCH ×2 (06:32→20:43)
[2016-10-06 06:36] LABS: ALBUMIN 3.6 g/dL (3.5-5.0); CALCIUM 8.7 mg/dL (8.8-10.2); MAGNESIUM 2.2 mg/dL (1.5-2.7); POTASSIUM 4.3 mmol/L (3.5-5.1); TOTAL BILIRUBIN 0.37 mg/dL (0.20-1.00); TOTAL PROTEIN 6.5 g/dL (6.3-8.3)
[2016-10-06] MEDS: COLACE PO SCH (08:17)
[2016-10-06] MEDS: HEPARIN SUBQ SCH ×2 (08:17→20:43)
[2016-10-06] MEDS: TYLENOL PO PRN (08:18)
[2016-10-06 08:19] LABS: BANDS 10 % (0-1); LYMPHS 4 % (21-51); MONO 2 % (1-9)
--- NOTE | 2016-10-06 09:03 | Diag Imaging Result Document ---
PROCEDURE NAME: CHEST-PORTABLE - 10/06/2016 PORTABLE CHEST: Compared with 10/05/2016. FINDINGS: Heart size appears within normal limits. There has been interval decrease in bibasilar opacities. There is residual subsegmental atelectasis plus or minus mild infiltrates at the bilateral bases. The upper lungs appear grossly clear. There is no pleural effusion or pneumothorax identified. IMPRESSION: Some decrease in basilar opacities.
[2016-10-06 10:23] LABS: ALLEN TEST YES; BLOOD TYPE ARTERIAL; DRAW SITE R RADIAL; METHB 1.6 % (0.0-1.5); MODALITY VENTIMASK; O2(CT) 14.2 mL/dL (15.0-23.0); PCO2(98.6) 49 mmHg (35-45); PO2(98.6) 69 mmHg (60-100); SAMPLE BLOOD; SAO2 97.6 % (95.0-100.0); THB 10.7 g/dL (11.5-17.4); pH(98.6) 7.35 (7.35-7.45)
--- NOTE | 2016-10-06 12:22 | PROGRESS NOTE ---
DATE: 10/06/2016 SUBJECTIVE: Patient is definitely more alert today. Reports that she does not know how she ended up being in the intensive care unit. Denies any shortness of breath at rest or chest pain. OBJECTIVE: Vital Signs: Temperature 97.7 degrees, heart rate 65, respiratory rate 15, blood pressure 162/83, O2 saturation 94% on Venturi mask. Physical Examination: General: This is a chronically ill-looking and frail, 61 -year-old, female, looking definitely much older than her age, lying in bed, in no acute distress. HEENT: Head is normocephalic and atraumatic. Anicteric sclerae and pale conjunctivae. Mucous membranes are moist. Neck: Supple. No JVD noted. No carotid bruits. No lymphadenopathy. No thyromegaly. Cardiovascular Examination: S1 and S2 heard. No murmurs, gallops , or rubs. Regular rate and rhythm. Respiratory Examination: Decreased breath sounds globally with some coarse breath sounds in both bases. Patient is not using any accessory muscles or having work of breathing. Abdomen: Soft. Nontender to palpation. Bowel sounds present. No organomegaly. Extremities: No clubbing, cyanosis, or edema. Peripheral pulses present in both legs. Neurological Examination: Patient is more alert and awake. Follow commands. Moves 4 extremities. Laboratory Data: White cell count 16.6, hemoglobin 11.1, hematocrit 34.5, platelets 263,000. ABG shows pH 7.35, pCO2 49, PO2 of 69. BMP unremarkable. ASSESSMENT: 1. Acute on chronic respiratory failure. 2. Chronic obstructive pulmonary disease exacerbation. 3. Right lower lobe pneumonia. 4. Possible methadone withdrawal. 5. Metabolic encephalopathy. 6. Acute kidney injury. PLAN: 1. The patient was admitted to the hospital with difficulty in breathing. The patient was lethargic and we suspected drug overdose. Oxygen needs still high. She is requiring Ventimask at 50%. We are going to continue with the same management. I will keep this patient in the intensive care unit for now. 2. Chronic obstructive pulmonary disease exacerbation. Patient is on Solu- Medrol 40 q.12 hours as well as DuoNebs every 4. Pulmonary has been consulted. Antibiotic fraga, patient is on Rocephin and azithromycin. 3. Right lower lobe pneumonia. Actually the CT of the chest showed patchy and nodular pulmonary opacities on the left side and the right side of both lungs. We will continue with antibiotic therapy. In this case, this patient is on vancomycin and Zosyn. We are going to continue with the same management. 4. A possible methadone overdose. The patient takes methadone 50 mg p.o. daily. She has a history of opiate dependence and that is why she is using no medication. At this time, we are going to restart small doses of methadone. In this case, it will be 10 mg daily to avoid any new withdrawal. 5. Metabolic encephalopathy getting better. 6. Acute kidney injury. The patient has been started on IV fluids and creatinine is almost back to normal. We will continue watching that. 7. Left lower extremity cellulitis versus DVT. The results of the ultrasound are still pending. We are going to continue with the same antibiotic therapy. 8. Tobacco abuse. Patient has refused before to stop smoking. We have advised to stop smoking to this patient. cc: Abraham Hall MD MTDD
[2016-10-06] MEDS: ZOFRAN IV PRN ×2 (13:04→18:30)
[2016-10-07] MEDS: DUONEB (A & A) INH SCH ×6 (02:56→22:45)
[2016-10-07] MEDS: ZOSYN 3.375 GM/NS 3.375 GM/50 ML IVPB IV SCH ×4 (04:04→23:17)
[2016-10-07] MEDS: SOLU-MEDROL IV SCH ×2 (04:08→16:21)
[2016-10-07 06:11] LABS: BASO% 0.1 % (0.0-0.8); HEMOGLOBIN 9.4 g/dL (12.0-16.0); IMM GRAN# 0.02 X1000 (0.0-0.04); IMM GRAN% 0.2 % (0.0-0.5); LYMPH# 0.77 X1000 (1.2-3.4); LYMPH% 6.3 % (20.5-51.1); MANUAL DIFF NEEDED? YES; MCH 29.1 PG (27-31); MCHC 31.3 g/dL (33-37); MCV 92.9 FL (81-99); MONO# 0.81 X1000 (0.11-0.59); MONO% 6.7 % (1.7-9.3); MPV 9.8 FL (7.4-10.4); NEUT% 86.7 % (42.2-75.2); PLT 248 X1000 (130-400); RBC 3.23 XMIL (4.2-5.4)
[2016-10-07 06:22] LABS: LYMPHS 8 % (21-51); MONO 6 % (1-9)
[2016-10-07 06:28] LABS: CALCIUM 8.3 mg/dL (8.8-10.2); POTASSIUM 4.4 mmol/L (3.5-5.1)
[2016-10-07] MEDS: PRILOSEC PO SCH ×2 (07:28→20:04)
[2016-10-07] MEDS: VANCOMYCIN 1.2 GM in NS 250 ML IV SCH (08:22)
[2016-10-07] MEDS: COLACE PO SCH (08:22)
[2016-10-07] MEDS: HEPARIN SUBQ SCH ×2 (08:22→20:04)
[2016-10-07] MEDS ORDERED: METHADONE PO SCH (09:00)
[2016-10-07] MEDS ORDERED: METHADONE LIQUID PO SCH (09:00)
[2016-10-07] MEDS: SPIRIVA INH SCH (11:07)
--- NOTE | 2016-10-07 14:51 | PROGRESS NOTE ---
DATE: 10/07/2016 SUBJECTIVE: The patient is still a little bit sleepy. She does not recall why she is here in the hospital. Denies any shortness of breath at rest, any chest pain, any fever or chills. OBJECTIVE: Vital Signs: Temperature 98.6 degrees, heart rate 61, respiratory rate 15, blood pressure 152/72, O2 saturation 92% on 5 L nasal cannula. General Examination: This is a chronically ill-looking and frail, 61-year-old female, looking definitely much older than her age, lying in bed, in no acute distress. HEENT: Head is normocephalic, atraumatic. Anicteric sclerae. Pale conjunctivae. Mucous membranes moist. Neck: Supple. No JVD noted. No carotid bruits. No lymphadenopathy. No thyromegaly. Cardiovascular: S1, S2 heard. No murmurs, gallops, or rubs. Regular rate and rhythm. Respiratory: Decreased breath sounds globally. Some coarse breath sounds are still present in both bases but patient is not using any accessory muscles or having work of breathing. Abdomen: Soft. Nontender to palpation. Bowel sounds present. No organomegaly. Extremities: No clubbing, cyanosis, or edema. Peripheral pulses present in both legs. Neurological: Patient is a little bit more alert in comparing when she came in but is still a little bit sleepy. Follows commands. Moves 4 extremities. LABORATORY DATA: White cell count 12.15, hemoglobin 9.4, hematocrit 30.0, platelets 248,000. BMP unremarkable except creatinine 1.2. ASSESSMENT: 1. Acute on chronic respiratory failure. 2. Chronic obstructive pulmonary disease exacerbation. 3. Right lower lobe pneumonia. 4. Possible methadone overdose. 5. Metabolic encephalopathy. 6. Acute kidney injury. PLAN: 1. The patient was admitted to the hospital because she was becoming more and more lethargic. Patient was admitted to the intensive care unit because she was requiring oxygen by Venturi mask only but now we have switched it to nasal cannot 5 L/minute. We are going to continue with the same management. 2. For COPD exacerbation, it looks like this patient has been treated for now pneumonia. Patient is on Solu-Medrol 40 mg q.12 hours and DuoNeb every 4 hours as well. Pulmonary is following this patient as well and she is on Rocephin and azithromycin. 3. For right lower lobe pneumonia, we will continue with the same management and actually the CT of the chest shows this patch nodular pulmonary opacities in the left side and in the right side of the lung. At this point, we are going to continue with the same medical management. 4. Possible methadone overdose. The patient was taking 50 mg p.o. daily of methadone according to her, so we prefer to start 10 mg 1 tablet p.o. daily for possible withdrawal. Still sleepy. 5. For management metabolic encephalopathy, she is getting slowly better. 6. For acute kidney injury, patient is on IV fluids. The creatinine is returning back to normal. 7. Overall this patient is doing good. We are going to transfer this patient to the regular floor when oxygen needs drop a little bit more. She needs to be advised about stopping smoking because the last visit she was not willing to stop smoking at all and I think this is playing an important role in the management of this patient. cc: Abraham Hall MD
[2016-10-07] MEDS: TYLENOL PO PRN (17:26)
[2016-10-07] MEDS: ZOFRAN IV PRN (17:26)
[2016-10-07] MEDS: METHADONE PO SCH (20:04)
[2016-10-08] MEDS: ZOFRAN IV PRN ×3 (01:22→20:28)
[2016-10-08] MEDS: DUONEB (A & A) INH SCH ×5 (02:45→23:04)
[2016-10-08] MEDS: ZOSYN 3.375 GM/NS 3.375 GM/50 ML IVPB IV SCH ×4 (04:31→22:47)
[2016-10-08] MEDS: SOLU-MEDROL IV SCH ×2 (04:31→17:40)
[2016-10-08] MEDS: PRILOSEC PO SCH ×2 (06:11→20:39)
[2016-10-08 06:20] LABS: MANUAL DIFF NEEDED? NO
[2016-10-08 06:25] LABS: EOS# 0.13 X1000 (0.0-0.7); EOS% 1.1 % (0.0-10.0); HEMATOCRIT 32.6 % (37.0-47.0); HEMOGLOBIN 10.3 g/dL (12.0-16.0); IMM GRAN# 0.03 X1000 (0.0-0.04); IMM GRAN% 0.3 % (0.0-0.5); LYMPH# 1.27 X1000 (1.2-3.4); LYMPH% 11.1 % (20.5-51.1); MCH 29.3 PG (27-31); MCHC 31.6 g/dL (33-37); MCV 92.6 FL (81-99); MONO% 6.1 % (1.7-9.3); MPV 10.6 FL (7.4-10.4); NEUT% 81.4 % (42.2-75.2); PLT 224 X1000 (130-400); RBC 3.52 XMIL (4.2-5.4)
[2016-10-08 07:00] LABS: CALCIUM 8.8 mg/dL (8.8-10.2); POTASSIUM 4.9 mmol/L (3.5-5.1)
--- NOTE | 2016-10-08 07:35 | Diag Imaging Result Document ---
PROCEDURE NAME: CHEST-PORTABLE - 10/08/2016 SINGLE FRONTAL RADIOGRAPH OF THE CHEST: COMPARISON: 10/06/2016. FINDINGS: Bibasilar subsegmental atelectasis +/- mild infiltrates are approximately stable. No new consolidation is identified. Cardiac silhouette is stable. IMPRESSION: Stable chest.
[2016-10-08] MEDS: SPIRIVA INH SCH (07:52)
[2016-10-08] MEDS: COLACE PO SCH (08:59)
[2016-10-08] MEDS: METHADONE PO SCH ×2 (09:00→20:27)
[2016-10-08] MEDS: HEPARIN SUBQ SCH ×2 (09:00→20:30)
--- NOTE | 2016-10-08 10:01 | CONSULTATION ---
DATE OF CONSULTATION: 10/08/2016 HISTORY OF PRESENT ILLNESS: Ms. Bolaños is a 61-year-old white female with a history of chronic pain treated in the [facility] with methadone therapy. In addition, she has COPD with 3 L of nasal cannula at home. I have evaluated her in the office back in 12/2013 for some atypical-type chest discomfort that was evaluated with myocardial perfusion imaging that turned out to be low risk. In addition, she had an echo back in 07/2016 that was unremarkable. She presented on 10/05/2016 with complaints of shortness of breath that seemed to her to have been going on for around 24-48 hours. She called EMS and was noted to be hypoxic at that time, as well as having some decreased mentation. She was brought to the hospital and her initial ABG had a pH of 7.24, pCO2 of 63, her PO2 was 55 on 50% BiPAP. She was admitted to the ICU and placed on nebulizers, antibiotics. Her methadone was held and, apparently, her mental status began improving. Yesterday evening as well as into the morning hours, she began having some sporadic runs of SVT with heart rates up into the 150s to 180s. She was symptomatic with some heart racing with those episodes reports that she was not physically active. She was lying in bed. Otherwise, she has no complaints other than continued diffuse pain issues related to her methadone being held. PAST MEDICAL HISTORY: 1. History of chronic pain syndrome treated with methadone for at least 3 years. 2. COPD with home oxygen therapy. 3. Hypertension. SOCIAL HISTORY: She continues to smoke; has been doing so for around 15 years. No current alcohol use. No illicit drug use. Uses chronic methadone. Apparently, she had a recent 1-week stay at rehab for physical therapy. FAMILY HISTORY: Significant for hypertension. REVIEW OF SYSTEMS: A 10 system review of systems is negative except for those mentioned in HPI. PHYSICAL EXAMINATION: Vital signs: She is afebrile. Her heart rate most recently has been in the 50s to 70s. Her blood pressure is 185/87. General: She is in no acute distress. HEENT: Oropharynx is moist. Normal dentition. Her eye examination is pink conjunctivae. White sclerae. Neck: Examination shows no obvious thyromegaly or thyroid tenderness. Cardiovascular: She sounds to be in a regular rate and rhythm. I do not hear any murmurs. She has no S3. She has no lower extremity edema. No carotid bruits. Her JVP does not appear to be elevated. She has no lower extremity edema. Chest: Her chest exam has a somewhat poor inspiratory effort. I did not hear any obvious expiratory wheezes. No increased work of breathing. Abdomen: Soft, nontender, nondistended. No obvious organomegaly. Skin: Warm and dry throughout without any rashes. Neurological: She is moving all extremities well. Cranial nerves 2-12 are intact without any sensation deficits. Psychiatric: She has a somewhat depressed affect but seems to be able to answer all questions appropriately. PERTINENT DATA: Her CT scan shows patchy nodular pulmonary opacities. Possibility of pneumonia or even possibly metastatic disease cannot be excluded. Her chest x-ray performed this morning shows bibasilar subsegmental atelectasis with possible mild infiltrates, appears relatively stable. Her telemetry was as described above in the HPI. Her first EKG at 9:27 shows sinus rhythm at 84 beats per minute. No signs of ischemic changes or evidence for acute infarct. She had a second EKG at 11:28 that showed sinus rhythm, rate of 76 beats per minute. No signs of ischemic changes or evidence for acute infarct. Her laboratory data shows a white count of 11.4, hematocrit is 32. Her platelet count is 224,000. She did have a bandemia on presentation but currently that seems to have resolved. Sodium is 142, potassium is 4.9. Her BUN is 25. Creatinine is 1.2. Her magnesium on presentation was 2.2. None recently checked. ProBNP on presentation was 1409. Last albumin was 3.6. ASSESSMENT: 1. Combined hypercapnic and hypoxic respiratory failure likely due to a combination of chronic obstructive pulmonary disease as well as chronic pain medication. 2. Supraventricular tachycardia. 3. Hypertension. 4. Chronic obstructive pulmonary disease. PLAN: I will initiate diltiazem at 30 mg p.o. q. 8 hours. I will plan on titrating that medication and using it in place of her amlodipine that she is on chronically at home. We will check an echo today. We will check a TSH as well. cc: Reid Hill MD
[2016-10-08] MEDS: CARDIZEM PO SCH ×2 (10:21→17:40)
--- NOTE | 2016-10-08 11:11 | PROGRESS NOTE ---
DATE: 10/08/2016 SUBJECTIVE: This patient looks more alert today and she is answering all my questions and following commands. The blood pressure has been high and also she had episodes of SVT. Cardiology department evaluated this patient. We are going to try a new medication. She has been on amlodipine but now Dr. Hill is going to put this patient on hydralazine 100 mg p.o. t.i.d. Probably I will monitor this patient 1 more night here in the ICU. I will continue with the same dose of methadone. Apparently she had 10 mg yesterday but today she received 5. I am not quite sure why. I talked to the patient and she said that she receives usually 50 mg of methadone at home. Will monitor. OBJECTIVE: Vital Signs: Temperature 96.8 degrees, pulse 56, respiratory rate 12, blood pressure 185/87, oxygen saturation 96% on 5 L of nasal cannula. HEENT: Head normocephalic. No trauma. PERRLA. Neck: Supple. No JVD. No masses. Central trachea. Chest: Clear to auscultation. Decreased breath sounds globally. Some crackles at the bases. She is not having work of breathing or using any accessory muscles. Abdomen: Soft, nontender, nondistended. No hepatosplenomegaly. Extremities: No clubbing. No edema. No cyanosis. Neurological: The patient is alert. She is oriented x3. She is following commands. She is answering all of my questions. She moves all 4 extremities. LABORATORY: WBC 11.4, hemoglobin 10.3, hematocrit 32.6, platelets 224,000. Sodium 142, potassium 4.9, chloride 103, bicarbonate 23, BUN 25, creatinine 1.2, glucose 91, calcium 8.8. TSH 0.29. ASSESSMENT AND PLAN: 1. Acute hypoxemic and hypercapnic respiratory failure, likely related to medication and/or chronic obstructive pulmonary disease exacerbation. This is getting better. We are going to continue with the same management for now. She is on nasal cannula 5 L. 2. Chronic obstructive pulmonary disease exacerbation. Will continue with the Solu-Medrol 40 mg IV q.12 hours. Probably tomorrow will decrease the dose or switch it to p.o. Pulmonary department is following this patient. 3. Right lower lobe pneumonia. Continue with the antibiotics. 4. Supraventricular tachycardia. Cardiology department evaluated this patient and they will start this patient on hydralazine three times a day. 5. Hypertension. The blood pressure is around 180. Will start the hydralazine and then we will check the blood pressure again. 6. Possible methadone overdose. This patient is taking at home 50 mg p.o. daily so this patient was started on 10 mg daily and today she received 5 mg p.o. daily. Apparently after taking the 10 mg she was not acting right so they decreased the dose. I will monitor this patient today and probably tomorrow I will stay with the same dose or I will increase it. 7. Metabolic encephalopathy. She is alert. She is oriented x3. She is following commands and answering all of my questions. 8. Acute kidney injury. This patient is on IV fluids. The creatinine is at baseline. CRITICAL CARE TIME: 35 minutes. cc: Amauri Mix MD
[2016-10-08] MEDS: TYLENOL PO PRN (15:21)
[2016-10-08] MEDS: VANCOMYCIN 1.2 GM in NS 250 ML IV SCH (20:30)
[2016-10-08] MEDS: APRESOLINE PO SCH (22:46)
[2016-10-09] MEDS: CARDIZEM PO SCH ×3 (02:42→18:11)
[2016-10-09] MEDS: DUONEB (A & A) INH SCH ×7 (03:37→23:11)
[2016-10-09] MEDS: SOLU-MEDROL IV SCH (04:36)
[2016-10-09] MEDS: ZOSYN 3.375 GM/NS 3.375 GM/50 ML IVPB IV SCH ×4 (04:36→22:52)
[2016-10-09] MEDS: PRILOSEC PO SCH ×2 (06:06→20:34)
[2016-10-09] MEDS: APRESOLINE PO SCH ×3 (06:06→20:29)
[2016-10-09] MEDS: SPIRIVA INH SCH (07:54)
[2016-10-09] MEDS: METHADONE PO SCH ×2 (08:44→09:03)
[2016-10-09] MEDS: COLACE PO SCH (08:45)
[2016-10-09] MEDS: HEPARIN SUBQ SCH ×2 (08:45→20:30)
[2016-10-09] MEDS: ZOFRAN IV PRN ×2 (08:50→15:55)
[2016-10-09] MEDS: PREDNISONE PO SCH (09:03)
[2016-10-09 10:53] LABS: BASO% 0.1 % (0.0-0.8); EOS# 0.01 X1000 (0.0-0.7); EOS% 0.1 % (0.0-10.0); HEMATOCRIT 34.8 % (37.0-47.0); HEMOGLOBIN 10.8 g/dL (12.0-16.0); IMM GRAN# 0.02 X1000 (0.0-0.04); IMM GRAN% 0.3 % (0.0-0.5); LYMPH# 0.63 X1000 (1.2-3.4); LYMPH% 8.2 % (20.5-51.1); MANUAL DIFF NEEDED? YES; MCH 28.7 PG (27-31); MCV 92.6 FL (81-99); MONO# 0.31 X1000 (0.11-0.59); MPV 9.4 FL (7.4-10.4); NEUT% 87.3 % (42.2-75.2); PLT 245 X1000 (130-400); RBC 3.76 XMIL (4.2-5.4)
[2016-10-09 11:10] LABS: CALCIUM 8.7 mg/dL (8.8-10.2); MAGNESIUM 2.3 mg/dL (1.5-2.7)
[2016-10-09 11:26] LABS: BANDS 2 % (0-1); LYMPHS 6 % (21-51); MONO 2 % (1-9)
--- NOTE | 2016-10-09 14:15 | PROGRESS NOTE ---
DATE: 10/09/2016 SUBJECTIVE: This patient states that she is feeling much better, she is not complaining of shortness of breath or chest pain. No nausea, no vomiting, no diarrhea, no constipation. She is completely alert and oriented x3. I will transfer this patient to the medical floor to continue treatment. OBJECTIVE: Vital Signs: Temperature 99.1 degrees, pulse 95, respiratory rate 19, blood pressure 160/88, oxygen saturation 95% on 3 L of nasal cannula. HEENT: Head normocephalic. No trauma. PERRLA. Neck: Supple. No JVD. No masses. Central trachea. Chest: Clear to auscultation. Decreased breath sounds globally. Some crackles at the bases. She is not having work of breathing or using any accessory muscle. Abdomen: Soft, nontender, nondistended. No hepatosplenomegaly. Extremities: No clubbing, no edema. No cyanosis. Neurological examination: The patient is alert. She is oriented x3. She is following commands. She is answering all my questions. She is moving all 4 extremities. LABORATORY: WBC 7.7, hemoglobin 10.8, hematocrit 34.8, platelets 245. Sodium 140, potassium 5, chloride 102, bicarbonate 24, BUN 23, creatinine 1.2, glucose 129, calcium 8.7, magnesium 2.3. ASSESSMENT AND PLAN: 1. Acute hypoxemic and hypercapnic respiratory failure probably related to medication and/or chronic obstructive pulmonary disease exacerbation. She is getting better. I will switch the intravenous steroids to oral treatment, and I will continue with the rest of the management. This patient is not having work of breathing or shortness of breath at this moment, and I will transfer this patient to the medical floor to continue treatment. 2. Chronic obstructive pulmonary disease exacerbation. I will continue with steroids, but I will switch the treatment from intravenous to oral, Pulmonary Department is following this patient. 3. Right lower lobe pneumonia. Continue with antibiotics. 4. Supraventricular tachycardia. This is better. Cardiology Department is following this patient. Continue with the same management. 5. Hypertension. The blood pressure decreased from 180 to 150s and low 160s. We will continue with hydralazine and Cardizem as well. 6. Possible methadone abuse. This patient is taking here 10 mg daily of methadone. She was taking 50 mg oral daily at home. I do think that this patient can tolerate 10 mg daily here and also as an outpatient. 7. Metabolic encephalopathy. Resolved. 8. Acute kidney injury. This is her baseline. We will continue to monitor. CRITICAL CARE TIME: 30 minutes. cc: Amauri Mix MD
[2016-10-09] MEDS: NICODERM PATCH TD SCH (15:49)
[2016-10-10] MEDS: CARDIZEM PO SCH ×2 (01:47→09:44)
[2016-10-10] MEDS: DUONEB (A & A) INH SCH ×3 (02:57→11:16)
[2016-10-10] MEDS: ZOSYN 3.375 GM/NS 3.375 GM/50 ML IVPB IV SCH (04:35)
[2016-10-10] MEDS: APRESOLINE PO SCH (05:47)
[2016-10-10] MEDS: PRILOSEC PO SCH ×2 (05:47→06:01)
[2016-10-10 06:27] LABS: MANUAL DIFF NEEDED? NO
[2016-10-10 06:44] LABS: BASO% 0.1 % (0.0-0.8); EOS# 0.12 X1000 (0.0-0.7); EOS% 1.3 % (0.0-10.0); HEMATOCRIT 35.3 % (37.0-47.0); HEMOGLOBIN 11.1 g/dL (12.0-16.0); IMM GRAN# 0.04 X1000 (0.0-0.04); IMM GRAN% 0.4 % (0.0-0.5); LYMPH# 2.11 X1000 (1.2-3.4); LYMPH% 23.2 % (20.5-51.1); MCH 28.7 PG (27-31); MCHC 31.4 g/dL (33-37); MCV 91.2 FL (81-99); MONO# 0.88 X1000 (0.11-0.59); MONO% 9.7 % (1.7-9.3); MPV 9.3 FL (7.4-10.4); NEUT% 65.3 % (42.2-75.2); PLT 254 X1000 (130-400); RBC 3.87 XMIL (4.2-5.4)
[2016-10-10 07:02] LABS: CALCIUM 8.4 mg/dL (8.8-10.2)
[2016-10-10] MEDS: SPIRIVA INH SCH (07:35)
[2016-10-10 07:54] VITALS: BP 129/62
[2016-10-10] MEDS ORDERED: VANCOMYCIN 1.2 GM in NS 250 ML IV SCH (09:00)
[2016-10-10] MEDS: COLACE PO SCH (09:39)
[2016-10-10] MEDS: METHADONE PO SCH (09:40)
[2016-10-10] MEDS: HEPARIN SUBQ SCH (09:40)
[2016-10-10] MEDS: PREDNISONE PO SCH (09:41)
[2016-10-10] MEDS: NICODERM PATCH TD SCH (09:41)
[2016-10-10] MEDS ORDERED: PNEUMOVAX 23 IM ONE (11:45)
--- NOTE | 2016-10-10 22:54 | Extremity Venous Study ---
PROCEDURE NAME: Venous U/S Bilateral Legs - 10/05/2016 BILATERAL LOWER EXTREMITY VENOUS DUPLEX STUDY: REFERRING PHYSICIAN: Abraham Hall MD READING PHYSICIAN: Jj Hendrix MD ELECTRICAL TECHNICIAN INSTRUCTOR: Elmer. INDICATION: Shortness of breath and respiratory failure. FINDINGS: The deep and superficial veins of both lower extremities were imaged throughout their course. All are compressible with forward flow. No thrombus is appreciated. INTERPRETATION: No evidence of deep or superficial venous thrombosis in either lower extremity. Of note, there is some subcutaneous fluid noted in the right popliteal fossa. cc: MD Abraham Garcia MD
--- NOTE | 2016-10-11 10:43 | DISCHARGE SUMMARY ---
ADMISSION DATE: 10/05/2016 DISCHARGE DATE: 10/10/2016 CONSULTATIONS: 1. Dr. Jason Christensen of pulmonology. 2. Dr. Reid Hill with cardiology. PERTINENT PROCEDURES: 1. Chest CT showed patchy nodular pulmonary opacities, possibility of pneumonia and/or metastatic disease cannot be excluded. Follow up chest x-ray showed a stable chest. DISCHARGE DIAGNOSES: 1. Acute hypoxemic and hypercapnic respiratory failure secondary to medication and/or chronic obstructive pulmonary disease exacerbation, improved. 2. Chronic obstructive pulmonary disease exacerbation, improved. 3. Right lower lobe pneumonia. Continue with oral antibiotics. 4. Supraventricular tachycardia followed by cardiology. Continue with oral Cardizem. Her amlodipine was discontinued. 5. Hypertension. Continue with Cardizem. 6. Possible methadone abuse. Patient states she was taking 50 mg oral daily at home; she has been decreased to 10 mg daily of methadone. While in the hospital, she has tolerated that well. Dr. Hickman has suggested that the patient change to 10 mg and follow up on an outpatient basis so she can get prescribed her methadone. 7. Metabolic encephalopathy, resolved. 8. Acute kidney injury. Patient is back to her baseline. HOSPITAL COURSE: Briefly, Ms. Bolaños is a 61-year-old, female with a history of chronic pain syndrome, who takes methadone COPD on 3 L of oxygen at home on the recent admit on 09/21/2016. On the day of admission, patient started having shortness of breath that worsened over the last 2 days with subjective fever and chills. Due to her increased shortness of breath and altered mentation, her sister called an ambulance. Apparently she had taken her methadone around 8 a.m. The patient was essentially unresponsive not too long after being admitted. When EMS arrived, her O2 saturations were about 82%. She was given nebulizers with O2 and increased her saturation to 93%. When she arrived to the ED, she showed a significant decrease in her level of consciousness, as well as another decrease in her saturations requiring BiPAP. Due to respiratory acidosis on her ABG, she received another breathing treatment as well as prednisone. Her chest x-ray did show a right lower lobe infiltrate versus pneumonia. Patient was admitted to the ICU where was started on IV fluids, IV antibiotics, as well as bronchodilators with repeat ABGs and IV steroids and a consult with pulmonology. The patient was weaned down to Venturi mask and then back to her normal nasal cannula. She was moved to the floor from the ICU. The patient was set for discharge, however she did have only a 14 beat run of SVT. Cardiology was consulted. She was placed on Cardizem p.o. and taken off her home Norvasc. She has not had any more episodes of SVT. The patient is being discharged back to [facility]. VITAL SIGNS AT TIME OF HER DISCHARGE: Her temperature was 98.8 degrees, heart rate 68, respiratory rate 20, blood pressure 129/62, O2 is 93% on her home 3 L nasal cannula. DISCHARGE MEDICATIONS: 1. Cardizem 30 mg p.o. q. 8 hours. 2. Colace 100 mg p.o. b.i.d. 3. Crestor 20 mg p.o. at bedtime. 4. Folic acid 1 mg p.o. daily. 5. Lasix 20 mg p.o. daily. 6. Gabapentin 600 mg p.o. t.i.d. 7. Hydralazine 100 mg p.o. t.i.d. 8. Magnesium 250 mg p.o. daily. 9. Methadone 10 mg p.o. daily. 10. Protonix 40 mg p.o. daily. 11. K-Tab ER 1 tab p.o. daily. 12. Prednisone 40 mg p.o. daily. 13. Spiriva 1 puff inhaled RT daily. FOLLOW UP: Patient is being discharged back to [facility]. She will need to follow up with her primary care physician, Dr. Fatemeh Salcido, in 5-7 days. Patient has been advised against smoking cessation, as well as finding a treatment for her addiction. Patient can return to the ED for any worsening of symptoms. DISCHARGE TIME: 30 minutes. Dictated by ALFA Neville for Amauri Mix MD cc: MD Fatemeh Rader MD
== END 2016-10-10 12:09 | disposition home or self-care (01) ==
LOC: ED 09:09 → SUATTDRO 15:29 → ICU 15:29 → 4N 10-09 22:34
PROVIDERS: ATTEND Internal Medicine

== ENCOUNTER 2016-11-11 11:02 | Inpatient (IN) ==
[2016-11-11 11:51] LABS: BLOOD TYPE ARTERIAL; DRAW SITE R RADIAL; METHB 0.3 % (0.0-1.5); O2(CT) 14.7 mL/dL (15.0-23.0); PCO2(98.6) 50 mmHg (35-45); SAMPLE BLOOD; THB 13.2 g/dL (11.5-17.4); pH(98.6) 7.36 (7.35-7.45)
--- NOTE | 2016-11-11 11:54 | EKG Report ---
Test Performed on : 11/11/2016 11:47:20 AM Test Reason : SOB Blood Pressure : / mmHG Vent. Rate : 061 BPM Atrial Rate : 061 BPM P-R Int : 132 ms QRS Dur : 078 ms QT Int : 458 ms P-R-T Axes : 070 061 049 degrees QTc Int : 461 ms Sinus rhythm. with premature atrial complexes. Otherwise normal ECG When compared with ECG of 25-OCT-2016 08:54, premature ventricular complexes. are no longer present premature atrial complexes. are now present Unconfirmed Result
[2016-11-11 11:57] LABS: MANUAL DIFF NEEDED? NO
[2016-11-11 11:58] LABS: PO2(98.6) 47 mmHg (60-100)
[2016-11-11 11:59] LABS: BE 1.9 mmoll (-3.0-3.0)
[2016-11-11 12:00] LABS: MODALITY ROOM AIR
[2016-11-11 12:01] LABS: ALLEN TEST YES
--- NOTE | 2016-11-11 12:03 | PROVIDER DOCUMENTATION ---
HPI-General Adult - General Chief Complaint: Edema Stated Complaint: LOW OXYGEN/FALLING Time Seen by Provider: 11/11/16 11:26 Source: patient Allergies/Adverse Reactions: Patient Allergies Allergy/AdvReac Type Severity Reaction Status Date / Time No Known Allergies Allergy Verified 11/11/16 11:10 Home Medications: Home Medication List Medication Instructions Recorded Confirmed Last Taken Type Pantoprazole [Protonix] 40 mg PO DAILY 06/29/14 10/25/16 10/25/16 07:00 History Escitalopram [Lexapro] 20 mg PO QHS #30 tablet 08/28/16 10/25/16 10/24/16 20:00 Rx Magnesium 250 mg PO DAILY 09/09/16 10/25/16 10/25/16 07:00 History Folic Acid 1 mg PO DAILY 10/05/16 10/25/16 10/25/16 07:00 History Potassium Chloride [K-Tab ER] 1 tab PO DAILY PRN 10/05/16 10/25/16 10/23/16 07: 00 History Diltiazem [Cardizem] 30 mg PO Q8H #120 tablet 10/10/16 10/25/16 10/25/16 07:00 Rx Hydralazine HCl 100 mg PO TID #90 tablet 10/10/16 10/25/16 10/25/16 07:00 Rx Methadone 10 mg PO DAILY tablet 10/10/16 10/25/16 10/24/16 07:00 Rx Prednisone 40 mg PO DAILY #25 tablet 10/10/16 10/25/16 10/25/16 07:00 Rx Tiotropium Chavies Inhaler 1 puff INH RTDAILY #1 inhaler 10/10/16 10/25/1610/25 07:00 Rx [Spiriva] Levofloxacin [Levaquin] 750 mg PO DAILY #10 tablet 10/25/16 Unknown Rx Methylprednisolone [Medrol Dosepak] 4 mg PO DIRECTED #1 package 10/25/16 Unknown Rx - History of Present Illness -Gen Adult Nature of Presenting Problems: Pt. is 61 yof that presents with c/o SOB and edema in lower extremities. Pt. has Hx of some heart condition and COPD. Pt. has had multiple recent admissions for pneumonia and pt. reports she still smokes. Pt. states she is on O2 at home but doesn't have a portable tank so she went to her PCP today to evaluate the swelling in her legs and they sent her to the ED because her O2 sats were low. Pt. reports both legs hurt from the swelling and denies any other complaint. Family at bedside reports the patient has been confused and passing out multiple times recently. Location of Pain/Injury: reports: lower extremity (bilateral). denies: head, face, mouth, neck, chest, upper extremity, hand(s), abdomen, back, pelvis, genitalia, feet, upper body, lower body, generalized Pain Radiation: reports: no radiation Quality of Pain: reports: aching, tightness. denies: burning, cramping, dull, fullness, indigestion, pressure, sharp, stabbing, tearing, throbbing Severity: reports: moderate. denies: mild, severe Onset/Duration: reports: gradual, 1 week ago Timing: reports: still present. denies: improving, gone now, resolved prior to arrival, intermittent, constant, changing over time, getting worse Context/Activities at Onset: reports: none. denies: recent emotional stress, recent physical stress, recent trauma history, possible bad food, cold exposure , out of country travel Modifying Factors: improves with: nothing Associated Symptoms: reports: malaise, shortness of breath, syncope, weakness. denies: anxiety, arm pain, back/neck pain, chest pain, constipation, cough, diaphoresis, diarrhea, dizziness, EENT symptoms, fatigue, fever/chills, genitourinary problems, headaches, heartburn, joint pain, loss of appetite, muscle aches, sinus congestion/drainage, nausea, rash, seizure, sensory/motor loss, pain with inspiration, swelling/mass in abdomen, vomiting, trouble walking Similar Symptoms Previously?: Yes Recently seen or treated by another doctor?: Yes Review of Systems - Adult - REVIEW OF SYSTEMS - ADULT Constitutional: reports: see HPI, maritza. denies: chills, fever Eyes: reports: see HPI. denies: dry eyes, blurred vision, double vision Ears, Nose, Mouth & Throat: reports: see HPI. denies: ear pain, hearing loss, sinus problem, mouth/dental pain, throat swelling Cardiovascular: reports: see HPI, edema, irregular heart rate. denies: chest pain, palpitations, syncope Respiratory: reports: see HPI, shortness of breath. denies: dyspnea on exertion , pleurisy, wheezing Gastrointestinal: reports: see HPI. denies: hematemesis, diarrhea, nausea, vomiting Genitourinary: reports: see HPI. denies: dysuria, flank pain, hesitency, urgency Musculoskeletal: reports: see HPI. denies: back pain, joint pain, muscle aches , neck pain Integumentary: reports: see HPI. denies: hives, itching, rash, skin thickening Neurological: reports: see HPI. denies: ataxia, dizziness/vertigo, headache/ migraines, numbness, seizure, tremors Psychiatric: reports: see HPI. denies: anxiety, depression, emotional problems , insomnia, panic attacks, suicidal thoughts Past History - Adult - PAST MEDICAL HISTORY-ADULT Review of Records: reports: Old Records Reviewed, Nursing Assessment Review, Medications Reviewed, Social history reviewed & non-contributory. Major Childhood Illnesses: reports: denies history Cardiovascular: reports: HTN, hyperlipidemia Respiratory: reports: COPD, pneumonia Gastrointestinal: reports: GERD, hepatitis (Hep C) Obstetrical/Gynecological: reports: other (cervical cancer) Genitourinary: reports: retention (fluid retention) Musculoskeletal: reports: denies history Neurological: reports: denies history Psychiatric: reports: anxiety, depression Endocrine/Immune: reports: denies history Other Conditions: reports: denies history - PRIOR SURGERIES/PROCEDURES Surgical/Procedure History: reports: hysterectomy - IMMUNIZATION STATUS Childhood Immunizations: See Nurse Assessment Flu Vaccine: See Nurse Assessment - FAMILY HISTORY Family History: reviewed, not pertinent - SOCIAL HISTORY Smoking: cigarettes, greater than 1 pack/day Provider spent 3-5 mins advising pt. on dangers of tobacco.: Discussed the need to stop smoking. Physical Exam-General - PHYSICAL EXAM-ADULT Initial Vital Signs Reviewed: Yes - CONSTITUTIONAL General Appearance: alert, moderate distress, obese. negative: thin, anxious, lethargic, slow to respond, obtunded, combative - EYES Eyes: PERRL/EOMI, pink conjunctivae. negative: conjuctival exudate, scleral icterus, subconjunctival hemorrhage - HEAD, EARS, NOSE, MOUTH & THROAT HENMT: normocephalic/atraumatic, moist mucous membranes. negative: angioedema, frontal tenderness, maxillary tenderness - NECK Neck: non-tender, full range of motion, supple, normal inspection. negative: lymphadenopathy, trachial deviation, thyromegaly - RESPIRATORY Respiratory: lungs clear, normal breath sounds, decreased breath sounds ( bilaterally). negative: crackles, rales, rhonchi, stridor, wheezing - CARDIOVASCULAR Cardiovascular: normal peripheral pulses, no JVD, no murmur, irregularly irregular. negative: no edema, extra beats, friction rub - GASTROINTESTINAL (ABDOMEN) Abdominal Exam: normal bowel sounds, non tender, soft. negative: distended, guarding, rigid, rebound, tenderness, hernia, mass - LYMPHATIC Lymphatic: no adenopathy. negative: axilla node tender, cervical node tenderness - MUSCULOSKELETAL Back Exam: normal inspection, no CVA tenderness, no vertebral tenderness. negative: ecchymosis, swelling, vertebral tenderness Extremity: normal range of motion, pedal edema. negative: deformity, inflammation, tenderness Peripheral Pulses: radial (R): 2+, radial (L): 2+ - SKIN Integumentary: normal color, normal turgor, warm/dry. negative: cyanosis, diaphoresis, ecchymosis, erythema, jaundice, mottled, pallor, petechiae, purpura , rash, swelling, tenderness - NEUROLOGIC Neurologic: grossly normal, no motor/sensory deficits. negative: aphasia, facial droop, focal weakness, motor weakness, sensory deficit - PSYCHIATRIC Psych/Mental Status: normal mood/affect, normal thought content, normal thought process, oriented x 3. negative: anxious, paranoid, tearful Progress - PLAN OF CARE/RESULTS Progress/Plan/Lab Results: Vital Signs - 8 hr 11/11/16 11:04 Temperature 99.2 F Pulse Rate 80 Respiratory Rate 20 Blood Pressure 137/078 O2 Sat by Pulse Oximetry 96 Orders Category Date Time Status Saline Loc NOW Care 11/11/16 11:33 Active CHEST-2 VIEWS [RAD] Stat Exams 11/11/16 11:34 Ordered ABG [RESP] Routine Lab 11/11/16 11:36 Received CBC WITH ELECTRONIC DIFF [HEME] Stat Lab 11/11/16 11:45 Results CK PROFILE [SP CHEM] Stat Lab 11/11/16 11:45 Received COMPREHENSIVE METABOLIC PANEL [CHEM] Stat Lab 11/11/16 11:45 Received PRO B-NATRIURETIC PEPTIDE Stat Lab 11/11/16 11:45 Received TROPONIN T Stat Lab 11/11/16 11:[address] W/POSS RFLX CULT [URINALYSIS] Stat Lab 11/11/16 11:35 Uncollected EKG [EKG] Stat Ther 11/11/16 11:33 Draft Result Diagrams: 11/11/16 11:45 11/11/16 11:45 - XRAY 1 XRAY Study: Chest XRAY Interpretation: Improved bilateral infiltrates ([place]) - CONSULTS/PCP/HOSPITALIST Notification #1 *Consult/PCP/Hospitalist*: Dr. Nelson Time Discussed: 12:59 Reason/Comments: Admission Consult Disposition: Admit Departure - Departure Time of Disposition Decision: 13:16 DIAGNOSIS: COPD exacerbation, Hypoxia Pneumonia Qualifiers: Pneumonia type: due to unspecified organism Laterality: bilateral Lung location : unspecified part of lung Qualified Code(s): J18.9 - Pneumonia, unspecified organism CHF (congestive heart failure) Qualifiers: Congestive heart failure type: unspecified congestive heart failure type Congestive heart failure chronicity: unspecified congestive heart failure chronicity Qualified Code(s): I50.9 - Heart failure, unspecified Disposition: ADMITTED INPATIENT 09 Certified Medical Emergency: Emergent Condition: Stable Referrals and Follow-Ups: Fatemeh Salcido MD [Primary Care Provider] - - Critical Care Note This patient required my direct & personal management of CC.: No Attestation - Physician/ ERIKA Attestation Patient care was provided by Advanced Practice Provider:: Yes Advanced Practice Provider:: Jass Cox Advanced Practice Provider documentation review:: The Mid-level provider documentation, treatment plan and medical decision making was reviewed by the physician who agrees with all treatment and medical decision making by the P.
[2016-11-11 12:10] LABS: BASO% 0.4 % (0.0-0.8); EOS% 2.9 % (0.0-10.0); HEMATOCRIT 29.1 % (37.0-47.0); HEMOGLOBIN 8.8 g/dL (12.0-16.0); IMM GRAN# 0.02 X1000 (0.0-0.04); IMM GRAN% 0.3 % (0.0-0.5); LYMPH# 1.38 X1000 (1.2-3.4); LYMPH% 20.4 % (20.5-51.1); MCH 27.6 PG (27-31); MCHC 30.2 g/dL (33-37); MCV 91.2 FL (81-99); MONO# 0.81 X1000 (0.11-0.59); MONO% 11.9 % (1.7-9.3); MPV 8.2 FL (7.4-10.4); NEUT% 64.1 % (42.2-75.2); PLT 290 X1000 (130-400); RBC 3.19 XMIL (4.2-5.4)
[2016-11-11 12:31] LABS: ALBUMIN 3.2 g/dL (3.5-5.0); CALCIUM 7.8 mg/dL (8.8-10.2); POTASSIUM 4.7 mmol/L (3.5-5.1); TOTAL BILIRUBIN 0.2 mg/dL (0.20-1.00); TOTAL PROTEIN 6.2 g/dL (6.3-8.3)
[2016-11-11] MEDS ORDERED: LASIX IV ONE (13:08)
--- NOTE | 2016-11-11 13:12 | Diag Imaging Result Document ---
PROCEDURE NAME: CHEST-2 VIEWS - 11/11/2016 CHEST X-RAY 2 VIEWS, 11/11/2016: COMPARISON: 10/25/2016. FINDINGS: There is extensive infiltrate in the basilar segments of the left lower lobe, which has improved slightly since prior. The right basilar infiltrate has also clearly improved. Heart size remains borderline. There is pulmonary vascular congestion. IMPRESSION: 1. Improvement in the bilateral basilar infiltrates. 2. Cardiomegaly and pulmonary vascular congestion.
[2016-11-11 13:33] LABS: URINE CULTURE PL NEEDED? NO
[2016-11-11 13:40] LABS: BILIRUBIN URINE NEGATIVE (NEGATIVE); BLOOD URINE NEGATIVE (NEGATIVE); CLARITY CLEAR (CLEAR); COLOR YELLOW; GLUCOSE URINE NEGATIVE (NEGATIVE); LEUKOCYTES URINE NEGATIVE (NEGATIVE); NITRITE URINE NEGATIVE (NEGATIVE); PROTEIN URINE TRACE mg/dL (NEGATIVE); SP GRAVITY URINE 1.015; UROBILINOGEN URINE NORMAL
[2016-11-11 14:04] LABS: URINE EPITHELIAL CELLS <10 /HPF (<10); URINE SOURCE CLEAN CATCH
[2016-11-11] MEDS: LEVAQUIN 750 MG/D5W 750 MG/150 ML IVPB IV SCH (14:26)
--- NOTE | 2016-11-11 14:45 | Diag Imaging Result Document ---
PROCEDURE NAME: ANGIOGRAM/PULMONARY ARTERIES - 11/11/2016 CT CHEST WITH INTRAVENOUS CONTRAST: COMPARISON: 08/07/2011. FINDINGS: There is normal opacification of the pulmonary arteries and their major branches. No thoracic aortic aneurysm or dissection. No effusions. No cardiomegaly. No enlarged mediastinal nodes. There is a 1 cm right hilar lymph node which is unchanged. There are [id number] emphysematous changes. Increased markings are found in the lower left lung. No consolidation. No bronchiectasis. IMPRESSION: 1. No pulmonary emboli. 2. Nodular infiltrates in the lingular segment of the left upper lobe and posteriorly in the left lower lobe. 3. Emphysema.
[2016-11-11] MEDS: MAXIPIME 2 GM/NS 2 GM/100 ML IVPB IV SCH (16:54)
[2016-11-11] MEDS: NICODERM PATCH TD SCH (17:31)
--- NOTE | 2016-11-11 19:18 | HISTORY AND PHYSICAL ---
PRIMARY CARE PHYSICIAN: Dr. Salcido. CHIEF COMPLAINT: Shortness of breath with home O2 use. HISTORY OF PRESENTING ILLNESS: This is a 61-year-old female who presented to [facility] with complaints of shortness of breath despite use of O2 at home. States that she saw her primary care physician and he sent her to the ER for decreased O2 saturation. On arrival, she had an O2 saturation on room air of 96. It is of note that she was admitted last here on 10/05/2016 through 10/10/2016 with a right lower lobe pneumonia, a COPD exacerbation and acute hypoxic and hypercapnic respiratory failure secondary to medications. Today her white blood cell count is normal at 6.78. She does have an elevation in her D-dimer at 1.77 but looking historically she has an elevated D-dimer with her last 1 in 10/05/2016 being 0.97. We checked a pulmonary arteriogram and it was negative for PE but noted nodular infiltrate in the lingular segment of the left upper lobe and posteriorly in the left lower lobe. Chest x- ray showed improvement in the bilateral basilar infiltrates. Her pro-BNP is noted to be 4242 which is a significant increase for her this year so she is being admitted for further evaluation and treatment. It is noted that she has had an echocardiogram on 09/09/2016 that showed an ejection fraction of 67%. She will be admitted to the medical unit for further evaluation and treatment. PAST MEDICAL HISTORY: COPD, chronic pain syndrome, hypertension and an elevated D-dimer. PAST SURGICAL HISTORY: Cholecystectomy, hysterectomy, and a tonsillectomy. FAMILY HISTORY: Noncontributory. SOCIAL HISTORY: She currently lives with family. Smokes 1 pack of cigarettes a day and has done so for the past 15 years. No alcohol or illicit drug use but is on chronic methadone treatment. ALLERGIES: She has no known drug allergies. HOME MEDICATIONS: A current list of her home medications will be obtained and we will restart as appropriate. LABORATORY DATA: Showed a white blood cell count of 6.78, hemoglobin 8.8, hematocrit 29.1, platelets 290,000. D-dimer of 1.77. ABG with a pH of 7.36, pCO2 of 50, PO2 47, bicarb 25.9. Sodium of 141, potassium 4.7, chloride 105, CO2 25, BUN of 12, creatinine 1.2, glucose of 80, creatine kinase of 87, troponin less than 0.010, proBNP of 4242. Urinalysis was negative. Chest x-ray with improvement in the bilateral basilar infiltrates, cardiomegaly and pulmonary vascular congestion. Pulmonary arteriogram showed no pulmonary emboli, nodular infiltrate in the lingular section of the left upper lobe and posteriorly in the left lower lobe and emphysema. EKG showed sinus rhythm with PACs at 61. REVIEW OF SYSTEMS: She denied any fever, chills, blurred vision, dizziness, chest pain, coughing, she was short of breath. She denied any abdominal pain, constipation, diarrhea, burning or hurting with urination. PHYSICAL EXAMINATION: VITAL SIGNS: Temperature 99.2 degrees, pulse 80, respirations 20, blood pressure 137/78, saturating 96% on room air was then placed in the ER on nasal cannula at 2 L saturating 94%. GENERAL: This is a 61-year-old female who is lying in the bed and answers questions appropriately. HEENT: Normocephalic and atraumatic. Pupils are equal, round, reactive to light. The extraocular movements are intact. Oropharynx and nares are clear. NECK: Supple. LUNGS: With decreased breath sounds bilaterally. Equal lung expansion, chest wall movement. O2 via nasal cannula currently in use. HEART: With regular rate and rhythm. No murmurs, rubs, or gallops. ABDOMEN: Soft, nontender, nondistended. Bowel sounds are present x4 quadrants. EXTREMITIES: No clubbing, cyanosis or edema. NEUROLOGICAL: The cranial nerves 2-12 appear grossly intact. ASSESSMENT: 1. Bilateral lower lobe pneumonia. 2. Elevated D-dimer. 3. Dyspnea. 4. Tobacco abuse. 5. Chronic obstructive pulmonary disease history of. 6. Chronic pain syndrome. 7. Hypertension. PLAN: She is being admitted to the medical unit at [facility]. Placed on telemetry. O2 per protocol. Blood cultures x2 are pending. She will receive Levaquin 750 mg IV q.24 and cefepime 2 g IV q.12, Lasix 40 mg IV q.12, Zofran 4 mg IV q.4 p.r.n. Will recheck a BMP and CBC in the a.m. and place on daily weights. Discussed smoking cessation with this patient who verbalizes understanding. Dictated by ALFA Merida for Ranjit Nelson MD cc: ALFA Merida MD Dr. Ahmed
[2016-11-12] MEDS: LASIX IV SCH ×3 (01:09→20:06)
[2016-11-12] MEDS: TYLENOL PO PRN ×2 (01:10→23:15)
[2016-11-12] MEDS: MAXIPIME 2 GM/NS 2 GM/100 ML IVPB IV SCH ×2 (03:00→16:49)
[2016-11-12] MEDS: ZOFRAN IV PRN (05:50)
[2016-11-12 06:00] LABS: MANUAL DIFF NEEDED? NO
[2016-11-12 06:05] LABS: BASO% 0.4 % (0.0-0.8); EOS# 0.17 X1000 (0.0-0.7); EOS% 3.1 % (0.0-10.0); HEMATOCRIT 30.2 % (37.0-47.0); HEMOGLOBIN 8.8 g/dL (12.0-16.0); IMM GRAN# 0.01 X1000 (0.0-0.04); IMM GRAN% 0.2 % (0.0-0.5); LYMPH# 1.28 X1000 (1.2-3.4); LYMPH% 23.5 % (20.5-51.1); MCH 26.5 PG (27-31); MCHC 29.1 g/dL (33-37); MONO# 0.72 X1000 (0.11-0.59); MONO% 13.2 % (1.7-9.3); MPV 8.8 FL (7.4-10.4); NEUT% 59.6 % (42.2-75.2); PLT 286 X1000 (130-400); RBC 3.32 XMIL (4.2-5.4)
[2016-11-12 06:23] LABS: CALCIUM 8.2 mg/dL (8.8-10.2); POTASSIUM 4.3 mmol/L (3.5-5.1)
[2016-11-12] MEDS: CARDIZEM PO SCH ×3 (08:38→23:11)
[2016-11-12] MEDS: APRESOLINE PO SCH ×3 (08:38→23:11)
[2016-11-12] MEDS: NICODERM PATCH TD SCH (08:38)
[2016-11-12] MEDS ORDERED: CATAPRES PO SCH (09:00)
[2016-11-12] MEDS: METHADONE PO SCH (10:44)
--- NOTE | 2016-11-12 12:09 | PROGRESS NOTE ---
DATE: 11/12/2016 SUBJECTIVE: This patient states that she is feeling a little bit better. She is still having cough and generalized weakness. Her blood pressure has been high and I restarted some of her home medications. This patient has been on methadone and I will put this patient back on that. She is getting treatment at [facility]. Her hemoglobin is 8.8 and I went back and checked her hemoglobin on 10/25/2016 and that hemoglobin was 11.9. I asked for occult blood in the stool to rule out any GI bleed. Also this patient states that she has not a good bowel movement. I will start this patient on MiraLAX. OBJECTIVE: Vital Signs: Temperature 98.2 degrees, pulse 74, respiratory rate 20, blood pressure 162/66, oxygen saturation 94% on 2 L of nasal cannula. HEENT: Head normocephalic. No trauma. PERRLA. She has a small lesion at the level of the right temporal area around 0.5 cm. It looks like a small ulcer with clean base. No secretions. Neck: Supple. No JVD. No masses. Central trachea. Cardiovascular: RRR. No murmurs. No gallops. Chest: Bilateral coarse breath sounds. Decreased breath sounds at the bases. Prolonged expiratory phase. Left lower lung rhonchi. Abdomen: Soft, nontender, nondistended. Positive bowel sounds. Extremities: No clubbing. No edema. No cyanosis. Neurological: The patient is alert and oriented x3. No focal neurological deficits. LABORATORY: WBC 5.4, hemoglobin 8.8, hematocrit 30.2, platelets 286,000. Sodium 141, potassium 4.3, chloride 105, bicarbonate 27, BUN 13, creatinine 1.3, glucose 79, calcium 8.2. ASSESSMENT AND PLAN: 1. Left lower lobe pneumonia. This patient has been placed on antibiotics. She is on cefepime and levofloxacin. She is feeling a little bit better. I will continue with the same management for now. 2. Elevated D-dimer with a negative result for pulmonary embolism, negative CT angiogram of the chest. I will ask for a lower extremity Doppler ultrasound to rule out DVT. 3. Pulmonary hypertension based on echocardiogram result on September 2016, aware. 4. History of chronic obstructive pulmonary disease. Not in exacerbation at this moment. Continue with the same management. 5. Chronic pain syndrome. This patient is on methadone. Continue with the same management. 6. Hypertension. I restarted this patient on her home medication. The blood pressure has been high. Continue to monitor. 7. Tobacco abuse. This patient has been highly advised against tobacco abuse. I will continue with daily cessation education. 8. Constipation. I will start this patient on MiraLAX. cc: Amauri Mix MD
[2016-11-12] MEDS: NEURONTIN PO SCH ×2 (13:49→16:56)
[2016-11-12] MEDS: LEVAQUIN 750 MG/D5W 750 MG/150 ML IVPB IV SCH (13:50)
[2016-11-12] MEDS ORDERED: BENADRYL PO ONE (14:24)
[2016-11-12] MEDS: LEXAPRO PO SCH (20:06)
[2016-11-13] MEDS: MAXIPIME 2 GM/NS 2 GM/100 ML IVPB IV SCH ×2 (02:07→16:03)
[2016-11-13 06:42] LABS: MANUAL DIFF NEEDED? NO
[2016-11-13 06:55] LABS: BASO% 0.4 % (0.0-0.8); EOS# 0.21 X1000 (0.0-0.7); HEMATOCRIT 30.7 % (37.0-47.0); HEMOGLOBIN 9.1 g/dL (12.0-16.0); IMM GRAN# 0.02 X1000 (0.0-0.04); IMM GRAN% 0.4 % (0.0-0.5); LYMPH# 0.96 X1000 (1.2-3.4); LYMPH% 18.1 % (20.5-51.1); MCHC 29.6 g/dL (33-37); MCV 91.1 FL (81-99); MONO# 0.71 X1000 (0.11-0.59); MONO% 13.4 % (1.7-9.3); MPV 8.6 FL (7.4-10.4); NEUT% 63.7 % (42.2-75.2); PLT 275 X1000 (130-400); RBC 3.37 XMIL (4.2-5.4)
--- NOTE | 2016-11-13 07:10 | Extremity Venous Study ---
PROCEDURE NAME: Venous U/S Bilateral Legs - 11/12/2016 BILATERAL VENOUS ULTRASOUND LOWER EXTREMITIES: INDICATION: Elevated D dimer. FINDINGS: The deep veins of the lower extremities demonstrate appropriate compressibility and augmentation. No intraluminal thrombus is visualized. There is no evidence for DVT. The superficial veins appear patent. IMPRESSION: No evidence for deep venous thrombosis bilateral lower extremities.
[2016-11-13 07:20] LABS: CALCIUM 8.2 mg/dL (8.8-10.2); POTASSIUM 4.3 mmol/L (3.5-5.1)
[2016-11-13] MEDS: NEURONTIN PO SCH ×3 (08:47→16:04)
[2016-11-13] MEDS: MIRALAX PO SCH (08:47)
[2016-11-13] MEDS: LASIX IV SCH ×2 (08:47→20:35)
[2016-11-13] MEDS: NICODERM PATCH TD SCH (08:47)
[2016-11-13] MEDS: METHADONE PO SCH (08:48)
[2016-11-13] MEDS: APRESOLINE PO SCH ×2 (08:48→16:03)
[2016-11-13] MEDS: CARDIZEM PO SCH ×2 (08:48→16:03)
[2016-11-13] MEDS ORDERED: DULCOLAX PR ONE ×2 (11:36→14:00)
--- NOTE | 2016-11-13 12:07 | PROGRESS NOTE ---
DATE: 11/13/2016 SUBJECTIVE: This patient states that she is feeling better. She is still complaining of cough or generalized weakness. Blood pressure was high yesterday, but after restarted her home medications it improved, I will continue methadone as well. She is getting treatment at [facility]. OBJECTIVE: Vital Signs: Temperature 98.5 degrees, pulse 60, respiratory rate 18, blood pressure 119/74, oxygen saturation 95% on 2 L of nasal cannula. HEENT: Head normocephalic. No trauma. PERRLA. She has a small lesion at the level of the right temporal area around 0.5 cm and a small ulcer with clean base. No secretion. Neck: Supple. No JVD. No masses. Central trachea. Cardiovascular: RRR. No murmurs. No gallops. Chest: Bilateral coarse breath sounds. Decreased breath sounds at the bases. Prolonged expiratory phase. Left lower lung rhonchi. Abdomen: Soft, nontender, nondistended. Positive bowel sounds. Extremities: No clubbing, no edema, no cyanosis. Neurological: The patient is alert and oriented x3. No focal neurological deficits. LABORATORY: WBC 5.3, hemoglobin 9.1, hematocrit 30.7, platelets 275. Sodium 137, potassium 4.3, chloride 99, bicarbonate 28, BUN 14, creatinine 1.3, glucose 173, calcium 8.2. ASSESSMENT AND PLAN: 1. Left lower lobe pneumonia. Continue with the same antibiotics. She is on cefepime and levofloxacin. She is getting better. We will continue with the same management for now. 2. Elevated D-dimer. We have a CT angiogram of the chest and also a lower extremity ultrasound that are negative for deep vein thrombosis. Continue to monitor. 3. Pulmonary hypertension based on echocardiogram result on September 2016. continue with diuresis. 4. History of chronic obstructive pulmonary disease not in exacerbation at this moment. Continue with the same management. 5. Chronic pain syndrome. This patient is on methadone. Continue with the same management. 6. Hypertension. Yesterday I re-started this patient's home medication. The blood pressure is controlled now. 7. Tobacco abuse. This patient has been highly advised against tobacco abuse. I will continue with daily cessation education. 8. Constipation. Yesterday, I started this patient on MiraLAX. I will give her today Dulcolax suppository times one. DISPOSITION: Overall this patient looks better. I will continue with antibiotics and breathing treatment for 1-2 days, and then this patient can be discharged home. Also this patient will need to see a cotton factor for the lesion that she has chronically at the level of the right temporal area. cc: Amauri Mix MD
[2016-11-13] MEDS: LEVAQUIN 750 MG/D5W 750 MG/150 ML IVPB IV SCH (14:14)
[2016-11-13 16:12] LABS: OCCULT BLOOD 1 NEGATIVE (NEGATIVE)
[2016-11-13] MEDS: TYLENOL PO PRN (18:50)
[2016-11-13] MEDS: LEXAPRO PO SCH (20:35)
[2016-11-13] MEDS: ZOFRAN IV PRN (20:46)
[2016-11-14] MEDS: CARDIZEM PO SCH ×3 (00:22→16:20)
[2016-11-14] MEDS: APRESOLINE PO SCH ×3 (00:22→16:20)
[2016-11-14] MEDS: MAXIPIME 2 GM/NS 2 GM/100 ML IVPB IV SCH ×2 (03:23→16:21)
[2016-11-14] MEDS: ZOFRAN IV PRN (03:45)
[2016-11-14 06:31] LABS: MANUAL DIFF NEEDED? NO
[2016-11-14 06:48] LABS: BASO% 0.4 % (0.0-0.8); EOS# 0.18 X1000 (0.0-0.7); EOS% 3.8 % (0.0-10.0); HEMATOCRIT 31.9 % (37.0-47.0); HEMOGLOBIN 9.5 g/dL (12.0-16.0); IMM GRAN# 0.01 X1000 (0.0-0.04); IMM GRAN% 0.2 % (0.0-0.5); LYMPH# 0.87 X1000 (1.2-3.4); LYMPH% 18.2 % (20.5-51.1); MCH 27.1 PG (27-31); MCHC 29.8 g/dL (33-37); MCV 91.1 FL (81-99); MONO# 0.78 X1000 (0.11-0.59); MONO% 16.3 % (1.7-9.3); NEUT% 61.1 % (42.2-75.2); PLT 267 X1000 (130-400)
[2016-11-14 07:14] LABS: CALCIUM 8.5 mg/dL (8.8-10.2); POTASSIUM 4.2 mmol/L (3.5-5.1)
[2016-11-14] MEDS: LASIX IV SCH (08:11)
[2016-11-14] MEDS: NICODERM PATCH TD SCH (08:12)
[2016-11-14] MEDS: NEURONTIN PO SCH ×2 (08:12→13:09)
[2016-11-14] MEDS: MIRALAX PO SCH (08:12)
[2016-11-14] MEDS: METHADONE PO SCH (08:12)
[2016-11-14] MEDS: LEVAQUIN 750 MG/D5W 750 MG/150 ML IVPB IV SCH (13:09)
--- NOTE | 2016-11-14 13:24 | PROGRESS NOTE ---
DATE: 11/14/2016 SUBJECTIVE: This patient states that she is feeling better. She is still complaining of mild cough and generalized weakness. Today she is complaining also of nausea. I do believe if tomorrow this patient is nauseated, she can go home with p.o. antibiotics. I will continue with methadone as well. She is getting treatment at [facility]. OBJECTIVE: Vital Signs: Temperature 97.4 degrees, pulse 77, respiratory rate 16, blood pressure 122/71, oxygen saturation of 91% on 2 L of nasal cannula. HEENT: Head normocephalic. No trauma. PERRLA. Neck: Supple. No JVD. No masses. Central trachea. Cardiovascular: RRR. No murmurs. Chest: Bilateral coarse breath sounds. Decreased breath sounds at the bases. Prolonged expiatory phase. Left lower lung rhonchi. Abdomen: Soft, nontender, nondistended. Positive bowel sounds. Extremities: No clubbing, no cyanosis, no edema. Neurological examination: The patient is alert and oriented x3. No focal neurological deficits. LABORATORY: WBC 4.78, hemoglobin 9.5, hematocrit 31.9, platelet 267. Sodium 138, potassium 4.2, chloride 98, bicarbonate 32. BUN 15, creatinine 1.4, glucose 77, calcium 8.5. ASSESSMENT AND PLAN: 1. Left lower lobe pneumonia. Continue with antibiotics. Probably this patient can be discharged tomorrow with oral antibiotics and follow up with primary care doctor in 1 week. 2. Elevated D-dimer. We have a CT angiogram of the chest and also a lower extremity ultrasound that are negative for deep vein thrombosis. Continue to monitor. 3. Pulmonary hypertension based on echocardiogram, resolved in September 2016. Continue with diuresis. 4. History of chronic obstructive pulmonary disease, not in exacerbation at this moment. Continue with the same management. 5. Chronic pain syndrome. Continue with methadone. She is getting treatment at [facility]. 6. Hypertension. Stable. Continue with home medication. 7. Tobacco abuse. This patient has been highly advised against tobacco abuse. I will continue with daily cessation education. 8. Constipation. Continue with MiraLAX. Continue with the same management. DISPOSITION: Overall, this patient looks better today. She was complaining of nausea. I do believe that this patient can be discharged tomorrow if everything is okay with p.o. antibiotics. This patient should go and see a primary care provider for a chronic lesion at the level of the right temporal area that measured about 0.5 cm. cc: Amauri Mix MD
[2016-11-14 18:05] LABS: BE 7.7 mmoll (-3.0-3.0); BLOOD TYPE ARTERIAL; DRAW SITE R BRACHIAL; METHB 0.6 % (0.0-1.5); O2(CT) 16.1 mL/dL (15.0-23.0); PO2(98.6) 305 mmHg (60-100); SAMPLE BLOOD; SAO2 97.3 % (95.0-100.0); THB 11.3 g/dL (11.5-17.4)
[2016-11-14 18:20] LABS: MANUAL DIFF NEEDED? NO
[2016-11-14 18:21] LABS: BASO% 0.8 % (0.0-0.8); EOS# 0.19 X1000 (0.0-0.7); EOS% 3.7 % (0.0-10.0); HEMOGLOBIN 10.6 g/dL (12.0-16.0); IMM GRAN# 0.02 X1000 (0.0-0.04); IMM GRAN% 0.4 % (0.0-0.5); LYMPH# 0.79 X1000 (1.2-3.4); LYMPH% 15.5 % (20.5-51.1); MCH 27.8 PG (27-31); MCHC 30.3 g/dL (33-37); MCV 91.9 FL (81-99); MONO# 0.68 X1000 (0.11-0.59); MONO% 13.3 % (1.7-9.3); MPV 8.6 FL (7.4-10.4); NEUT% 66.3 % (42.2-75.2); PLT 272 X1000 (130-400); RBC 3.81 XMIL (4.2-5.4)
[2016-11-14 18:47] LABS: ALBUMIN 3.3 g/dL (3.5-5.0); CALCIUM 8.6 mg/dL (8.8-10.2); POTASSIUM 4.5 mmol/L (3.5-5.1); TOTAL BILIRUBIN 0.2 mg/dL (0.20-1.00)
[2016-11-14] MEDS: SOLU-MEDROL IV SCH (19:01)
[2016-11-14 19:16] LABS: BE 9.4 mmoll (-3.0-3.0); BLOOD TYPE ARTERIAL; DRAW SITE R RADIAL; METHB 0.5 % (0.0-1.5); O2(CT) 13.8 mL/dL (15.0-23.0); PO2(98.6) 59 mmHg (60-100); SAMPLE BLOOD; SAO2 89.9 % (95.0-100.0); THB 11.1 g/dL (11.5-17.4); pH(98.6) 7.27 (7.35-7.45)
[2016-11-14] MEDS ORDERED: DUONEB (A & A) INH PRN (19:24)
[2016-11-14] MEDS: DUONEB (A & A) INH SCH ×2 (19:31→22:30)
[2016-11-14 19:45] LABS: ALLEN TEST NO
[2016-11-14 19:46] LABS: ALLEN TEST YES; MODALITY BI PAP; PCO2(98.6) 85 mmHg (35-45)
[2016-11-14 19:48] LABS: PCO2(98.6) 99 mmHg (35-45)
--- NOTE | 2016-11-14 19:50 | EKG Report ---
Test Performed on : 11/14/2016 5:57:02 PM Test Reason : Shortness of Breath Blood Pressure : / mmHG Vent. Rate : 102 BPM Atrial Rate : 102 BPM P-R Int : 116 ms QRS Dur : 082 ms QT Int : 360 ms P-R-T Axes : 046 012 034 degrees QTc Int : 469 ms Sinus tachycardia. Otherwise normal ECG When compared with ECG of 11-NOV-2016 11:47, premature atrial complexes. are no longer present Vent. rate has increased BY 41 BPM Confirmed by Duane De La Vega MD ([id number]) on 12/04/2016 10:12:35 PM
--- NOTE | 2016-11-14 20:50 | PROGRESS NOTE ---
DATE: 11/14/2016 SUBJECTIVE: This patient was doing fine during the morning. She was complaining just of mild cough and nausea. I talked to the patient and the plan was to send this patient home in the morning. I stopped the gabapentin because this patient told me that the combination of methadone and gabapentin makes her sick. Today in the afternoon I have received a call from the nurse stating that this patient has some mental status changes and she was in respiratory distress. Respiratory Therapy saw the patient and she was not breathing properly so they decided to go ahead and try to intubate this patient but once they tried to do it, the patient woke up and she started breathing by herself. We had an ABG that showed a pCO2 of 99. When I evaluated this patient, this patient was somnolent but she was following commands. She was placed on BiPAP and I started this patient on steroids and breathing treatment. I checked cardiac enzymes that so far are negative. It looks like she has CO2 narcosis. She has COPD. She was not complaining of shortness of breath in the morning. Actually she was feeling better. OBJECTIVE: Vital Signs: Temperature 97.6, pulse on the monitor 74, respiratory rate 20, blood pressure 147/82, oxygen saturation 93 on BiPAP machine. After half-hour we repeated the ABGs that showed pH of 7.27 and pC02 decreased to 85. HEENT: Head normocephalic. No trauma. Pupils are small but reactive. Neck: Supple. No JVD. No masses. Central trachea. Chest: Decreased air entry bilaterally. No wheezing. Lungs: Left lower lung scattered rhonchi. Cardiovascular: RRR. No murmurs. Abdomen: Soft, nontender, nondistended. No hepatosplenomegaly. Extremities: No edema. No clubbing. No cyanosis. Neurological Examination: The patient is somnolent. She is answering some of my questions. I asked her for her name and she said her name. She is following commands but she is lethargic. LABORATORY: WBC 5, hemoglobin 10.6, hematocrit 35, platelets 272,000. Sodium 135, potassium 4.5, chloride 96, bicarbonate 30, BUN 14, creatinine 1.5, glucose 109, calcium 8.6. Troponins negative, less than 0.010. Albumin 3.3. ASSESSMENT AND PLAN: 1. Chronic obstructive pulmonary disease exacerbation with CO2 narcosis. I just placed this patient on a BiPAP machine. This patient will receive steroids, breathing treatments, will continue with antibiotics, and monitoring of this patient in the ICU. 2. Elevated D-dimer. We did a CT angiogram and also lower extremity ultrasound that is negative for DVT a few days ago. We will continue to monitor. 3. Pulmonary hypertension based on echocardiogram. I will stop the diuresis for now. I will put this patient on gentle hydration. 4. Chronic pain syndrome. This patient has been on methadone and she is getting treatment at [facility]. Probably for now I will continue with this. 5. Hypertension. Continue with home medication. Blood pressure is stable. 6. Tobacco abuse. This patient had been highly advised in the morning against tobacco abuse. Once she is better I will continue with daily cessation education. CRITICAL CARE TIME: 1-1/2 hours. cc: Amauri Mix MD
[2016-11-14] MEDS: NS 1,000 ML IV SCH (21:30)
[2016-11-14 21:34] LABS: URINE CULTURE PL NEEDED? NO
[2016-11-14 21:41] LABS: BILIRUBIN URINE NEGATIVE (NEGATIVE); BLOOD URINE NEGATIVE (NEGATIVE); CLARITY CLEAR (CLEAR); COLOR YELLOW; GLUCOSE URINE NEGATIVE (NEGATIVE); LEUKOCYTES URINE NEGATIVE (NEGATIVE); NITRITE URINE NEGATIVE (NEGATIVE); PROTEIN URINE NEGATIVE (NEGATIVE); SP GRAVITY URINE 1.015; UROBILINOGEN URINE NORMAL
[2016-11-14 21:47] LABS: URINE SOURCE CATH
[2016-11-14 21:50] LABS: URINE CAST GRANULAR PRESENT /LPF; URINE EPITHELIAL CELLS <10 /HPF (<10); URINE RBC <10 /HPF (<10); URINE WBC <10 /HPF (<10)
[2016-11-14 21:59] LABS: BE 8.9 mmoll (-3.0-3.0); BLOOD TYPE ARTERIAL; METHB 0.6 % (0.0-1.5); O2(CT) 13.5 mL/dL (15.0-23.0); PO2(98.6) 68 mmHg (60-100); SAMPLE BLOOD; SAO2 93.1 % (95.0-100.0); THB 10.5 g/dL (11.5-17.4); pH(98.6) 7.25 (7.35-7.45)
[2016-11-14 22:01] LABS: ALLEN TEST NO; DRAW SITE L BRACHIAL; MODALITY BI PAP; PCO2(98.6) 88 mmHg (35-45)
[2016-11-15] MEDS: SOLU-MEDROL IV SCH ×4 (01:50→22:15)
[2016-11-15] MEDS: APRESOLINE PO SCH ×3 (01:56→17:28)
[2016-11-15] MEDS: CARDIZEM PO SCH (01:57)
[2016-11-15 02:19] LABS: CALCIUM 8.5 mg/dL (8.8-10.2); POTASSIUM 4.9 mmol/L (3.5-5.1)
[2016-11-15] MEDS: DUONEB (A & A) INH SCH ×6 (03:05→23:58)
[2016-11-15] MEDS: MAXIPIME 2 GM/NS 2 GM/100 ML IVPB IV SCH ×2 (04:25→16:40)
[2016-11-15 06:21] LABS: BASO% 0.2 % (0.0-0.8); HEMATOCRIT 31.9 % (37.0-47.0); HEMOGLOBIN 9.4 g/dL (12.0-16.0); IMM GRAN# 0.01 X1000 (0.0-0.04); IMM GRAN% 0.2 % (0.0-0.5); LYMPH# 0.36 X1000 (1.2-3.4); LYMPH% 8.8 % (20.5-51.1); MANUAL DIFF NEEDED? YES; MCH 27.2 PG (27-31); MCHC 29.5 g/dL (33-37); MCV 92.5 FL (81-99); MONO# 0.05 X1000 (0.11-0.59); MONO% 1.2 % (1.7-9.3); MPV 9.2 FL (7.4-10.4); NEUT% 89.6 % (42.2-75.2); PLT 228 X1000 (130-400); RBC 3.45 XMIL (4.2-5.4)
[2016-11-15 06:22] LABS: BLOOD TYPE ARTERIAL; DRAW SITE R RADIAL; METHB 0.3 % (0.0-1.5); O2(CT) 13.6 mL/dL (15.0-23.0); PO2(98.6) 92 mmHg (60-100); SAMPLE BLOOD; SAO2 96.6 % (95.0-100.0); pH(98.6) 7.33 (7.35-7.45)
[2016-11-15 06:25] LABS: ALLEN TEST YES; MODALITY BI PAP; PCO2(98.6) 72 mmHg (35-45)
[2016-11-15 06:50] LABS: AGAP 11; BUN 19 mg/dL (8-22); CALCIUM 8.3 mg/dL (8.8-10.2); CHLORIDE 96 mmol/L (98-107); COSMO 276; SODIUM 136 mmol/L (136-145); TCO2 29 mmol/L (25-35)
--- NOTE | 2016-11-15 08:35 | Diag Imaging Result Document ---
PROCEDURE NAME: HEAD W/O CONTRAST - 11/15/2016 CT HEAD WITHOUT CONTRAST: A dose-reduction protocol was used. COMPARISON: 09/09/2016. FINDINGS: There is no evidence of intracranial hemorrhage, mass effect, midline shift, or hydrocephalus. There are minimal chronic microvascular ischemic changes. There is no indication of recent infarct, although acute infarcts may not be immediately visible. There is opacification of mastoid air cells and partial opacification of the middle ear on the right, similar to the previous exam. IMPRESSION: 1. No visible acute intracranial abnormality. No hemorrhage or mass effect. 2. Chronic opacification of right mastoid air cells with partial opacification of the right middle ear, similar to the previous exam. A [facility] physician provided preliminary results at 2:05 a.m. on 11/15/2016.
[2016-11-15 08:52] LABS: HYPOCHROM 1+; LYMPHS 8 % (21-51)
--- NOTE | 2016-11-15 08:58 | Diag Imaging Result Document ---
PROCEDURE NAME: CHEST-PORTABLE - 11/14/2016 CHEST, SINGLE VIEW: INDICATION: Decreased O2 saturation. COMPARISON: 11/11/2016. FINDINGS: Inspiration is less optimal on today's study. There is increased left basilar infiltrate when compared with the prior study. There is a small right basilar infiltrate. Heart size is within normal limits given the portable technique. The pulmonary vasculature is not congested. IMPRESSION: 1. Low lung volumes. 2. Increasing left basilar infiltrate. 3. Small right basilar infiltrate has not definitely changed.
[2016-11-15] MEDS: NICODERM PATCH TD SCH (11:57)
[2016-11-15] MEDS: NS 1,000 ML IV SCH ×2 (11:57→22:31)
[2016-11-15] MEDS: MIRALAX PO SCH (11:57)
[2016-11-15] MEDS: METHADONE PO SCH (11:57)
[2016-11-15] MEDS: DOXYCYCLINE 100 MG in NS 250 ML IV SCH (12:14)
--- NOTE | 2016-11-15 12:57 | PROGRESS NOTE ---
DATE: 11/15/2016 SUBJECTIVE: Today, Ms. Bolaños refers to be doing a little better. Denies any complaints. She is currently under the BiPAP. OBJECTIVE: Vital signs: Blood pressure is 134/71, pulse 54, respirations 21, temperature 95.6 degrees. Patient is on the BiPAP and saturating 98%. General: Ms. Bolaños is a 61-year-old female. She is in bed, not seemingly distressed. HEENT: Mucosa is pink and moist. Anicteric. Acyanotic. Neck: Supple. Chest: Air entry is bilaterally reduced with prolonged expiratory phase. No crepitations. Cardiovascular: Regular rate and rhythm. Slightly bradycardic. Abdomen: Soft, nontender. Extremities: No pedal edema. Central Nervous System: Patient is alert and oriented. LABORATORY DATA: WBC is 4.08, hemoglobin is 9.4, platelet count of 228,000. pH 7.33 pCO2 of 73. Sodium is 136, potassium is 5.4, chloride is 96, bicarbonate is 29, and creatinine is 1.4. ASSESSMENT: 1. Acute on chronic hypercarbic respiratory failure. 2. Chronic obstructive pulmonary disease exacerbation. 3. Chronic respiratory acidosis with metabolic compensation. 4. Active tobacco use. 5. Chronic pain syndrome. 6. Hypertension. 7. History of supraventricular tachycardia, currently running bradycardic on the diltiazem. 8. Acute on chronic diastolic heart failure. 9. Mild pulmonary hypertension, likely secondary to chronic obstructive pulmonary disease. Ms. Bolaños is doing a little better today. We are going to continue with the BiPAP. Will only take it off for her to eat or drink water, and put it back on her for the 24- hour period and recheck ABG for tomorrow morning. We will discontinue the levofloxacin, since both levofloxacin and cefepime are covering almost the same thing. Will instead add doxycycline to the cefepime for better Methicillin -resistant Staphylococcus aureus coverage. We will discontinue the diltiazem. Patient is actually running bradycardic and the reason for using the diltiazem was that she was having supraventricular tachycardia in one of Dr. Hill's notes. We will hopefully transfer her from the unit to the floor tomorrow. cc: MD JONATHAN Rich
[2016-11-16] MEDS: DOXYCYCLINE 100 MG in NS 250 ML IV SCH ×3 (00:05→23:07)
[2016-11-16] MEDS: DUONEB (A & A) INH SCH ×6 (03:07→23:27)
[2016-11-16 04:34] LABS: BE 6.2 mmoll (-3.0-3.0); BLOOD TYPE ARTERIAL; DRAW SITE L BRACHIAL; O2(CT) 12.8 mL/dL (15.0-23.0); PO2(98.6) 81 mmHg (60-100); SAMPLE BLOOD; SAO2 96.3 % (95.0-100.0); SRATE 20 BPM; THB 9.4 g/dL (11.5-17.4); pH(98.6) 7.39 (7.35-7.45)
[2016-11-16 04:37] LABS: ALLEN TEST NO; MODALITY BI PAP; PCO2(98.6) 53 mmHg (35-45)
[2016-11-16] MEDS: MAXIPIME 2 GM/NS 2 GM/100 ML IVPB IV SCH ×2 (05:00→15:59)
[2016-11-16] MEDS: NS 1,000 ML IV SCH ×3 (05:00→23:08)
[2016-11-16] MEDS: SOLU-MEDROL IV SCH ×3 (05:00→23:06)
[2016-11-16] MEDS: APRESOLINE PO SCH ×4 (08:07→23:05)
[2016-11-16] MEDS: NICODERM PATCH TD SCH (08:07)
[2016-11-16] MEDS: METHADONE PO SCH (08:07)
[2016-11-16] MEDS: MIRALAX PO SCH (08:07)
[2016-11-16 08:43] LABS: BASO% 0.1 % (0.0-0.8); HEMATOCRIT 29.7 % (37.0-47.0); IMM GRAN# 0.02 X1000 (0.0-0.04); IMM GRAN% 0.2 % (0.0-0.5); LYMPH# 0.59 X1000 (1.2-3.4); LYMPH% 6.2 % (20.5-51.1); MANUAL DIFF NEEDED? YES; MCH 27.5 PG (27-31); MCHC 30.3 g/dL (33-37); MCV 90.8 FL (81-99); MONO# 0.48 X1000 (0.11-0.59); MPV 9.4 FL (7.4-10.4); NEUT% 88.5 % (42.2-75.2); PLT 237 X1000 (130-400); RBC 3.27 XMIL (4.2-5.4)
[2016-11-16 08:49] LABS: AGAP 12; BANDS 0 % (0-1); BASO 0 % (0-1); BUN 28 mg/dL (8-22); CALCIUM 8.3 mg/dL (8.8-10.2); CHLORIDE 98 mmol/L (98-107); COSMO 283; EOS 0 % (1-10); HYPOCHROM 1+; LYMPHS 6 % (21-51); MAGNESIUM 2.3 mg/dL (1.5-2.7); MONO 6 % (1-9); POTASSIUM 4.6 mmol/L (3.5-5.1); SODIUM 137 mmol/L (136-145); TCO2 27 mmol/L (25-35)
--- NOTE | 2016-11-16 10:58 | PROGRESS NOTE ---
DATE: 11/16/2016 SUBJECTIVE: Today, Ms. Bolaños refers to be doing a whole lot better. She is off the BiPAP. OBJECTIVE: Vital Signs: Blood pressure is 178/87, pulse 84, respirations 15, temperature is 98.6 degrees. The patient is saturating 98% on 4 L of nasal cannula. General: Ms. Bolaños is a 61-year- old female. She is in bed, not seemingly distressed. HEENT: Mucosa is pink and moist. Anicteric. Acyanotic. Neck is supple. Chest: Air entry is bilaterally reduced. There is diffuse end-expiratory wheezing at the posterior lung field. Cardiovascular: Regular rate and rhythm. There is about 2/6 murmur radiating to the carotid. Abdomen is soft. GROCERY SPECIALIST: The patient is alert and oriented x4. There is no focal neurological deficit. LABORATORY DATA: WBC is 9.54, hemoglobin is 9.0, platelet count is 237,000. There are no bands on the peripheral smear. Chemistry: Sodium is 137, potassium is 4.6, chloride is 98, bicarb is 27. BUN is 28, creatinine is 1.2 which is slightly improving. A chest x-ray this morning is pretty much unremarkable. I do not see any consolidation. I do not see any pneumonia. No pneumothorax. Probably a little bluntness to the left costophrenic angle which I think is probably due to atelectasis. We will be waiting on the official report. CURRENT MEDICATIONS: 1. Albuterol nebs. 2. Cefepime 2 g q.12 hourly. 3. Doxycycline 250 q.12. 4. Hydralazine 100 p.o. q. 8. 5. Methadone. 6. Solu-Medrol 40 mg IV q. 8. ASSESSMENT: 1. [id number] hypercarbic respiratory failure Arterial blood gases this morning shows some significant improvement with PCO2 down to 53. The patient is currently off BiPAP and doing remarkably fine. 2. Chronic obstructive pulmonary disease with acute exacerbation. 3. Chronic respiratory acidosis with metabolic compensation. 4. Active tobacco abuse. 5. Chronic pain syndrome. The patient is on methadone. 6. Uncontrolled hypertension. The patient is currently on hydralazine. We are going to add her home medication of amlodipine to see if we can get better blood pressure control. 7. History of supraventricular tachycardia. The patient was put on diltiazem in the past. Currently, she was running bradycardic so this was withheld. 8. Slqcs-ol-rinpyst diastolic heart failure. This is stable. 9. Mild pulmonary hypertension likely secondary to chronic obstructive pulmonary disease noted. In general, Ms. Bolaños is doing a whole lot better. We are going to continue with the current bronchodilation therapy, aggressive pulmonary toilette and the antibiotics. I am going to cut down on the steroid since the patient is remarkably improving. Will advise her to sit up in the chair and also ambulate with physical therapy. We are going to transfer the patient from the ICU to regular floor. We will also advice to only use the BiPAP at night. We will recheck on her labs and ABG tomorrow, off BiPAP, to see where we are. If patient continues to show this improvement, we will be able to discharge her tomorrow. cc: Nilay Schulte MD
[2016-11-16] MEDS: LACTULOSE PO PRN (15:58)
[2016-11-16] MEDS: TYLENOL PO PRN (16:11)
[2016-11-16] MEDS: ZOFRAN IV PRN (16:11)
[2016-11-16] MEDS ORDERED: CARDIZEM IV ONE (21:25)
[2016-11-16] MEDS: BENADRYL PO PRN (23:39)
[2016-11-17] MEDS: NS 1,000 ML IV SCH (01:24)
[2016-11-17] MEDS: MAXIPIME 2 GM/NS 2 GM/100 ML IVPB IV SCH ×2 (03:03→16:43)
[2016-11-17] MEDS: DUONEB (A & A) INH SCH ×6 (04:25→23:41)
[2016-11-17] MEDS: PROTONIX PO SCH (06:16)
[2016-11-17] MEDS: SOLU-MEDROL IV SCH ×2 (06:16→10:32)
[2016-11-17] MEDS: SPIRIVA INH SCH (08:15)
[2016-11-17] MEDS: NICODERM PATCH TD SCH (08:28)
[2016-11-17] MEDS: METHADONE PO SCH (08:28)
[2016-11-17] MEDS: APRESOLINE PO SCH ×3 (08:28→22:57)
[2016-11-17] MEDS: MIRALAX PO SCH (08:30)
[2016-11-17] MEDS: LACTULOSE PO PRN ×2 (08:44→22:06)
[2016-11-17] MEDS: CARDIZEM PO SCH ×3 (10:32→18:01)
[2016-11-17] MEDS: BENADRYL PO PRN ×2 (10:42→17:56)
[2016-11-17] MEDS: DOXYCYCLINE 100 MG in NS 250 ML IV SCH ×2 (12:14→22:59)
--- NOTE | 2016-11-17 17:50 | PROGRESS NOTE ---
DATE: 11/17/2016 SUBJECTIVE: Today, Ms. Bolaños refers to be doing a lot better. Early on this morning, I understand she went into SVT. OBJECTIVE: vitals: Now blood pressure is 146/76, respiration is 18, pulse is 72, temperature 98.6 degrees, patient is saturating 98% on 4 L of oxygen. General: Ms. Bolaños is a 61-year-old female. She was in bed. She did not seem to be in any distress. HEENT: Mucosa is pink and moist. Anicteric. Acyanotic. Neck: Neck is supple. Chest: There is some diffuse end-expiratory wheezing. Cardiovascular: Regular rate and rhythm. There is about 2/6 murmur radiating to the carotid. Abdomen: Soft, nontender. Extremities: No pedal edema. LOGGING SPECIALIST: Patient is alert and oriented x4. There is no focal neurological deficit. LABORATORY DATA: There is no CBC for today. Chemistry, none for today either. ASSESSMENT: 1. Acute on chronic hypercarbic respiratory failure. This is improved. 2. COPD with acute exacerbation. 3. Chronic respiratory acidosis with metabolic compensation. 4. Active tobacco abuse. 5. Chronic pain syndrome. 6. Hypertension, controlled. 7. History of SVT. We will restart the patient on her diltiazem. 8. Acute on chronic diastolic heart failure, noted. 9. Mild pulmonary hypertension, likely due to COPD. PLAN: I think Ms. Bolaños is doing a whole lot better. Chest findings have improved. We are going to continue with the current antibiotics and also steroid therapy and adequate pulmonary toilette. We will restart the patient on her diltiazem. Hopefully, if the pulse continues to be stable, we will be able to discharge the patient home tomorrow. We will discontinue the IV fluids and also reduce the steroid. cc: Nilay Schulte MD
[2016-11-17] MEDS: TYLENOL PO PRN (22:06)
[2016-11-18] MEDS: MAXIPIME 2 GM/NS 2 GM/100 ML IVPB IV SCH ×2 (03:44→15:10)
[2016-11-18] MEDS: DUONEB (A & A) INH SCH ×3 (04:59→11:15)
[2016-11-18] MEDS: PROTONIX PO SCH (06:31)
[2016-11-18 07:02] LABS: MODALITY NRB
--- NOTE | 2016-11-18 07:24 | Diag Imaging Result Document ---
PROCEDURE NAME: CHEST-PORTABLE - 11/16/2016 PORTABLE CHEST: COMPARISON: 11/14/2016. FINDINGS: Interval improvement in the left basilar infiltrate and atelectasis. Only small amount of increased markings persist. Heart is not enlarged. The vessels are not distended. No pleural effusion is identified. IMPRESSION: Mild interval improvement.
[2016-11-18] MEDS: SPIRIVA INH SCH (07:25)
[2016-11-18] MEDS: SOLU-MEDROL IV SCH (09:51)
[2016-11-18] MEDS: NICODERM PATCH TD SCH (09:51)
[2016-11-18 11:07] VITALS: BP 166/72
[2016-11-18] MEDS: APRESOLINE PO SCH ×2 (11:48→15:10)
[2016-11-18] MEDS: BENADRYL PO PRN (11:48)
[2016-11-18] MEDS: METHADONE PO SCH (11:48)
[2016-11-18] MEDS: MIRALAX PO SCH (11:49)
[2016-11-18] MEDS: CARDIZEM PO SCH ×2 (11:49→13:37)
[2016-11-18] MEDS: DOXYCYCLINE 100 MG in NS 250 ML IV SCH (11:49)
--- NOTE | 2016-11-22 06:14 | DISCHARGE SUMMARY ---
ADMISSION DATE: 11/11/2016 DISCHARGE DATE: 11/18/2016 DISCHARGE DIAGNOSES: 1. Acute on chronic hypercapnic respiratory failure. 2. Chronic obstructive pulmonary disease exacerbation. 3. Chronic pain syndrome. 4. History of SVT. HISTORY: Briefly, please refer to complete H P dictated on admission. She was admitted on the with shortness of breath per Dr. Hickman. She was treated with Levaquin, Lasix and cefepime and she slowly clinically improved. Venous ultrasound was obtained to rule out DVT which was negative. She had a left lower lobe pneumonia. She was maintained on antibiotics and had an elevated D-dimer but her VT workup was negative. Head CT was done on the I think for confusion because she had an acute episode where she got more confused but was probably thought to be felt related to her medications because she does take severe medications. She did develop hypercapnia and had to be placed on BiPAP. She was placed in the ICU but she clinically improved. By the , she was felt stable for discharge. She was maintained on diltiazem. She had some intermittent episodes of bradycardia but she was maintained on her low dose of Cardizem during her course. Chest x-ray showed improvement. On the , she was felt stable to go home. The next day antibiotics were stabilized. There was some issue with some dysphagia so speech therapy evaluated the patient prior to discharge but felt that she was stable for discharge and did not need any other further workup from a speech therapy standpoint but consideration for outpatient EGD. DISCHARGE MEDICATIONS: 1. Norvasc 10 daily. 2. Omnicef 300 b.i.d. for another 7 days. 3. Clonidine 0.1 b.i.d. 4. Cardizem 30 t.i.d., which was her home medications. 5. Lexapro 20 daily. 6. Neurontin 600 t.i.d. 7. Hydralazine 100 t.i.d. 8. Lactulose 10 b.i.d. 9. Methadone 35 daily. 10. Protonix 14 daily. 11. MiraLAX 17 daily. 12. Prednisone tapers. 13. Spiriva 1 puff daily. 14. Zanaflex 4 q.6h. DISCHARGE CONDITION: Stable. She was told to follow up with Dr. Enamorado in about 1 week for EGD and follow up with her PCP who is Dr. Salcido. TIME SPENT: 32 minute discharge. cc: Kamaljit Hahn MD
== END 2016-11-18 15:30 | disposition home or self-care (01) ==
LOC: P.ED 11:02 → P.MEDSURG 13:41 → SUATTDRO 13:41 → P.ICU 11-14 18:30 → P.MEDSURG 11-16 12:36
PROVIDERS: ATTEND Internal Medicine